=== PATIENT | male | born 1970 | race African-American/Black ===

== ENCOUNTER 2019-05-18 11:10 | Inpatient (IN) | payer OTHER ==
[2019-05-18 11:59] VITALS: BMI 25.9
--- NOTE | 2019-05-18 13:29 | HP ---
COWS - Scale Resting Pulse: 0= OR 80 or Below Sweatin= Chills/Flushing Restless Observation: 1= Difficult to Sit Still Pupil Size: 1= Pupils >than Normal Bone or Joint Aches: 2= Severe Diffuse Aches Runny Nose/ Eye Tearin= Runny Nose/Eyes GI Upset > 30mins: 2= Nausea/Diarrhea Tremor Observation: 2= Slight Tremor Visible Yawning Observation: 2= >3x During Session Anxiety or Irritability: 2=Irritable/Anxious Goose Flesh Skin: 0=Smooth Skin COWS Score: 15 CIWA Score Nausea/Vomitin Muscle Tremors: 2 Anxiety: 2 Agitation: 2 Paroxysmal Sweats: 1-Minimal Palms Moist Orientation: 0-Oriented Tacttile Disturbances: 1-Very Mild Itch/Numbness Auditory Disturbances: 1-Very Mild Visual Disturbances: 0-None Headache: 2-Mild CIWA-Ar Total Score: 13 - Admission Criteria OASAS Guidelines: Admission for Medically Managed Detox: Requires at least one of the followin. CIWA greater than 12 2. Seizures within the past 24 hours 3. Delirium tremens within the past 24 hours 4. Hallucinations within the past 24 hours 5. Acute intervention needed for co occurring medical disorder 6. Acute intervention needed for co occurring psychiatric disorder 7. Severe withdrawal that cannot be handled at a lower level of care (continued vomiting, continued diarrhea, abnormal vital signs) requiring intravenous medication and/or fluids 8. Admission ROS S - [facility] Chief Complaint: i need help to stop using heroin,alcohol and xanax Allergies/Adverse Reactions: Allergies Allergy/AdvReac Type Severity Reaction Status Date / Time No Known Drug Allergies Allergy Verified 05/18/19 11:52 lactose AdvReac Mild Verified 05/18/19 11:52 History of Present Illness: this 48 years old male with heroin dependence and alcohol dependence and xanax dependence,seeking detox,withdrawal symptom, multiple admissions in the past,last treatment [facility] 08/10/16 to 08/14/16 detox, rehab 08/14/16 to 09/04/16 nicotine dependence 1/2 pack/day,does not want nicotine replacement weight loss longest period of sobriety 5 and half year schizoaffective disorder no medication for 1 years arthritis of right knee ambulation with cane for 1 year plan out patient program after detox Exam Limitations: No Limitations - Ebola screening Have you traveled outside of the country in the last 21 days: No (NN) Have you had contact with anyone from an Ebola affected area: No Do you have a fever: No - Review of Systems Constitutional: Chills, Malaise, Night Sweats, Changes in sleep, Weakness, Weight Stable, Unintentional Wgt. Loss EENT: reports: Tearing, Nose Congestion Respiratory: reports: No Symptoms reported Cardiac: reports: No Symptoms Reported GI: reports: Nausea, Poor Appetite, Abdominal cramping : reports: No Symptoms Reported Musculoskeletal: reports: Back Pain, Muscle Pain, Neck Pain, Joint Stiffness ( pain in right knee arthritis ambulaion with cane) Integumentary: reports: Dryness Neuro: reports: Headache, Tremors Endocrine: reports: No Symptoms Reported Hematology: reports: No Symptoms Reported Psychiatric: reports: No Sypmtoms Reported, Judgement Intact, Mood/Affect Appropiate, Orientated x3, other (scizoaffetive disorder no meds for 1 year) Patient History - Patient Medical History Hx Anemia: No Hx Asthma: No Hx Chronic Obstructive Pulmonary Disease (COPD): No Hx Cancer: No Hx Cardiac Disorders: No Hx Congestive Heart Failure: No Hx Hypertension: No Hx Hypercholesterolemia: No Hx Pacemaker: No HX Cerebrovascular Accident: No Hx Seizures: No Hx Dementia: No Hx Diabetes: No Hx Gastrointestinal Disorders: No Hx Liver Disease: No Hx Genitourinary Disorders: No Hx Sexually Transmitted Disorders: Yes (GC X2) Hx Renal Disease (ESRD): No Hx Thyroid Disease: No Hx Human Immunodeficiency Virus (HIV): No (2017 last negative) Hx Hepatitis C: No Hx Depression: Yes Hx Suicide Attempt: No Hx Bipolar Disorder: No Hx Schizophrenia: Yes (schizoaffective disorder,non compliance,no sucidal,no homicidal) - Patient Surgical History Past Surgical History: No Hx Neurologic Surgery: No Hx Cataract Extraction: No Hx Cardiac Surgery: No Hx Lung Surgery: No Hx Breast Surgery: No Hx Breast Biopsy: No Hx Abdominal Surgery: No Hx Appendectomy: No Hx Cholecystectomy: No Hx Genitourinary Surgery: No Hx Section: No Hx Orthopedic Surgery: No Anesthesia Reaction: No - PPD History Previous Implant?: Yes Documented Results: Negative w/o proof Implanted On Prior R Admission?: Yes Date: 08/12/16 Results: 0 mm PPD to be Administered?: Yes - Smoking Cessation Smoking history: Current every day smoker Have you smoked in the past 12 months: Yes Aproximately how many cigarettes per day: 10 Cigars Per Day: 0 Hx Chewing Tobacco Use: No Initiated information on smoking cessation: Yes 'Breaking Loose' booklet given: 05/18/19 - Substance & Tx. History Hx Alcohol Use: Yes Hx Substance Use: Yes Substance Use Type: Alcohol, Heroin, Tranquilizers Hx Substance Use Treatment: Yes ([facility] 08/10/16 to 08/14/16 detox,rehab 08/14/16 to 09/04/16) - Substances abused Alcohol Substance route: Oral Frequency: Daily Amount used: 1 six pack , 2x week 1/2 pint vodka Age of first use: 15 Date of last use: 05/18/19 Heroin Substance route: Inhalation Frequency: Daily Amount used: 8 bags Age of first use: 23 Date of last use: 05/17/19 Alprazolam (Xanax) Substance route: Oral Frequency: 3-6 times per week Amount used: 2 (2mg sticks) Age of first use: 27 Date of last use: 05/16/19 Family Disease History - Family Disease History Family Disease History: Diabetes: Father (HTN), Mother (HTN), Heart Disease: Father, Mother, Other: Sister (alcohol and drug abused,HTN) Admission Physical Exam S - Vital Signs Vital Signs: Vital Signs - 24 hr 05/18/19 11:49 Temperature 98.4 F Pulse Rate 92 H Respiratory 18 Rate Blood Pressure 121/82 - Physical General Appearance: Yes: Moderate Distress, Tremorous, Irritable, Sweating, Anxious HEENTM: Yes: GERALDINE, Pharynx Normal, Nasal Congestion Respiratory: Yes: Within Normal Limits, Lungs Clear, Normal Breath Sounds Neck: Yes: Within Normal Limits, Supple, Trachea in good position Breast: Yes: Within Normal Limits Cardiology: Yes: Within Normal Limits, Regular Rhythm, Regular Rate, S1, S2 Abdominal: Yes: Within Normal Limits, Normal Bowel Sounds, Non Tender, Soft Genitourinary: Yes: Within Normal Limits Back: Yes: Muscle Spasm Musculoskeletal: Yes: Back pain, Muscle Pain Extremities: Yes: Tremors Neurological: Yes: Within Normal Limits, supervisor rides II-XII NML intact, Fully Oriented, Alert, Motor Strength 5/5 Integumentary: Yes: Dry Lymphatic: Yes: Within Normal Limits - Diagnostic (1) Opioid dependence with withdrawal Current Visit: Yes Status: Acute (2) Opioid dependence Current Visit: Yes Status: Acute (3) Alcohol dependence with uncomplicated withdrawal Current Visit: No Status: Acute (4) Seizure Current Visit: No Status: Active (5) Uncomplicated sedative, hypnotic or anxiolytic withdrawal Current Visit: Yes Status: Acute (6) Weight loss Current Visit: Yes Status: Acute (7) Nicotine dependence Current Visit: No Status: Acute (8) Schizoaffective disorder Current Visit: No Status: Acute (9) Drug withdrawal Current Visit: Yes Status: Acute (10) Drug withdrawal seizure Current Visit: Yes Status: Acute Cleared for Admission S - Detox or Rehab S Level of Care: Medically Managed Detox Regimen/Protocol: Methadone/Valium Breathalyzer - Breathalyzer Breathalyzer: 0 Urine Drug Screen - Test Device Lot number: [id number] Expiration date: 01/20/21 - Control Is test valid?: Yes - Results Drug screen NEGATIVE: No Urine drug screen results: MOP-Opiates, MTD-Methadone, BZO-Benzodiazepines Inpatient Rehab Admission - Rehab Decision to Admit Inpatient rehab admission?: No
[2019-05-18] MEDS ORDERED: cloNIDine HCL 0.1 MG TABLET PO PRN (13:44)
[2019-05-18] MEDS ORDERED: MAGNESIUM HYDROX 2400MG/30ML ORAL SUSPENSION 30 ML CUP PO PRN (13:54)
[2019-05-18] MEDS ORDERED: MAGNESIUM CITRATE 300 ML BOTTLE PO PRN (13:54)
[2019-05-18] MEDS ORDERED: BISMUTH SUBSALICYLATE 262 MG/15 ML BTL PO PRN (13:54)
[2019-05-18] MEDS ORDERED: MENTHOL/PHENOL 1 EACH UD MM PRN (13:54)
[2019-05-18] MEDS ORDERED: ACETAMINOPHEN 325 MG TABLET (FP) PO PRN ×2 (13:54)
[2019-05-18] MEDS ORDERED: MAG HYDROX/AL HYDROX/SIMETH 30 ML UNIT-DOSE CUP PO PRN (13:54)
[2019-05-18] MEDS ORDERED: METHADONE HCL 10 MG TABLET (FOR DETOX USE ONLY) PO ONE ×2 (14:20→23:00)
[2019-05-18 17:01] LABS: ALBUMIN 4.4 g/dl (3.4-5.0); BILIRUBIN,TOTAL 0.8 mg/dL (0.2-1); BLOOD UREA NITROGEN 18.4 mg/dL (7-18); CALCIUM 9.4 mg/dL (8.5-10.1); CREATININE 1.1 mg/dL (0.55-1.3); POTASSIUM 4.3 mmol/L (3.5-5.1); TOT PROT 8.4 g/dl (6.4-8.2)
[2019-05-18] MEDS: METHOCARBAMOL 500 MG TABLET PO PRN (17:19)
[2019-05-18] MEDS: diazePAM 5 MG TABLET PO PRN (17:19)
[2019-05-18 18:14] LABS: HEMATOCRIT 44.8 % (35.4-49); HEMOGLOBIN 14.5 GM/dL (11.7-16.9); MCH 31.2 pg (25.7-33.7); MCHC 32.4 g/dl (32.0-35.9); MEAN CELL VOLUME 96.4 fl (80-96); MEAN PLT VOLUME 8.9 fl (7.5-11.1); PLATELET COUNT 281 K/MM3 (134-434); RBC 4.64 M/mm3 (4.00-5.60); RDW 12.8 % (11.9-15.9); WHITE BLOOD COUNT 7.1 K/mm3 (4.0-10.0)
[2019-05-18 20:52] LABS: EPI CELLS 1.7 /HPF (0-5/HPF); HYALINE CASTS 6 /lpf (0-8); PH,URINE 6.5 (5.0-8.0); URINE APPEARANCE CLOUDY; URINE BACTERIA >9000 /hpf (NEGATIVE); URINE BILIRUBIN NEGATIVE (NEGATIVE); URINE COLOR YELLOW; URINE GLUCOSE (UA) NEGATIVE (NEGATIVE); URINE KETONE TRACE (NEGATIVE); URINE LEUK ESTERASE NEGATIVE (NEGATIVE); URINE NITRITE POSITIVE (NEGATIVE); URINE PROTEIN NEGATIVE (NEGATIVE); URINE RBC 1 /hpf (0-4); URINE UROBILINOGEN 0.2 mg/dL (0.2-1.0); URINE WBC 1 /hpf (0-5)
[2019-05-18] MEDS: THIAMINE HCL 100 MG TABLET (FP) PO SCH (22:38)
[2019-05-18] MEDS: diazePAM 5 MG TABLET PO SCH (22:38)
[2019-05-18] MEDS: MELATONIN 5 MG TABLETS PO PRN (22:38)
[2019-05-19] MEDS: diazePAM 5 MG TABLET PO SCH ×3 (06:00→22:14)
[2019-05-19] MEDS: METHOCARBAMOL 500 MG TABLET PO PRN ×2 (06:03→22:16)
[2019-05-19] MEDS ORDERED: METHADONE HCL 10 MG TABLET (FOR DETOX USE ONLY) PO ONE (10:00)
[2019-05-19] MEDS: PRENATAL VITAMINS W/ FOLIC ACID TABLET (FP) PO SCH (10:43)
[2019-05-19] MEDS: diazePAM 5 MG TABLET PO PRN ×2 (10:46→17:41)
--- NOTE | 2019-05-19 11:18 | PN ---
[facility] CIWA - CIWA Score Nausea/Vomitin-Mild Nausea/No Vomiting Muscle Tremors: 3 Anxiety: 2 Agitation: 3 Paroxysmal Sweats: 2 Orientation: 0-Oriented Tacttile Disturbances: 0-None Auditory Disturbances: 0-None Visual Disturbances: 0-None Headache: 0-None Present CIWA-Ar Total Score: 11 S COWS - Scale Resting Pulse: 0= CT 80 or Below Sweatin=Flushed/Facial Moisture Restless Observation: 1= Difficult to Sit Still Pupil Size: 0= Normal to Room Light Bone or Joint Aches: 2= Severe Diffuse Aches Runny Nose/ Eye Tearin= Nasal Congestion GI Upset > 30mins: 0= None Tremor Observation of Outstretched Hands: 2= Slight Tremor Visible Yawning Observation: 1= 1-2x During Session Anxiety or Irritability: 1=Feels Anxious/Irritable Goose Flesh Skin: 0=Smooth Skin COWS Score: 10 S Progress Note (SOAP) Subjective: agitation sweats shakes interrupted sleep/toss and turn insomnia Objective: 05/19/19 11:16 Vital Signs Temperature 98.4 F 05/19/19 09:25 Pulse Rate 79 05/19/19 09:25 Respiratory Rate 18 05/19/19 09:25 Blood Pressure 100/57 L 05/19/19 09:25 O2 Sat by Pulse Oximetry (%) Laboratory Tests 05/18/19 05/18/19 05/18/19 14:00 14:00 14:00 WBC 7.1 RBC 4.64 Hgb 14.5 Hct 44.8 D MCV 96.4 H MCH 31.2 MCHC 32.4 RDW 12.8 Plt Count 281 D MPV 8.9 Sodium 138 Potassium 4.3 Chloride 105 Carbon Dioxide 25 Anion Gap 8 BUN 18.4 H Creatinine 1.1 Est GFR (CKD-EPI)AfAm 91.52 Est GFR (CKD-EPI)NonAf 78.96 Random Glucose 78 Calcium 9.4 Total Bilirubin 0.8 AST 17 ALT 26 Alkaline Phosphatase 74 Total Protein 8.4 H Albumin 4.4 Urine Color Urine Appearance Urine pH Ur Specific [place] Urine Protein Urine Glucose (UA) Urine Ketones Urine Blood Urine Nitrite Urine Bilirubin Urine Urobilinogen Ur Leukocyte Esterase Urine WBC (Auto) Urine RBC (Auto) Urine Casts (Auto) U Pathogenic Cast Auto U Epithel Cells (Auto) Urine Bacteria (Auto) RPR Titer HIV 1&2 Antibody Screen Negative HIV P24 Antigen Negative 05/18/19 05/18/19 14:00 14:30 WBC RBC Hgb Hct MCV MCH MCHC RDW Plt Count MPV Sodium Potassium Chloride Carbon Dioxide Anion Gap BUN Creatinine Est GFR (CKD-EPI)AfAm Est GFR (CKD-EPI)NonAf Random Glucose Calcium Total Bilirubin AST ALT Alkaline Phosphatase Total Protein Albumin Urine Color Yellow Urine Appearance Cloudy Urine pH 6.5 D Ur Specific [place] 1.028 Urine Protein Negative Urine Glucose (UA) Negative Urine Ketones Trace H Urine Blood Negative Urine Nitrite Positive H Urine Bilirubin Negative Urine Urobilinogen 0.2 Ur Leukocyte Esterase Negative Urine WBC (Auto) 1 Urine RBC (Auto) 1 Urine Casts (Auto) 6 U Pathogenic Cast Auto No Result Required. U Epithel Cells (Auto) 1.7 Urine Bacteria (Auto) >9000 RPR Titer Nonreactive HIV 1&2 Antibody Screen HIV P24 Antigen labs noted u/a repeated; pt denies of any urinary discomfort aaox3 ambulating no acute distress Assessment: 05/19/19 11:17 withdrawal sx Plan: continue detox f/u repeat u/a ordered increase fluids psych ordered visine ordered
[2019-05-19] MEDS: TETRAHYDROZOLINE HCL EYE DROPS OS PRN ×2 (15:59→22:13)
[2019-05-19] MEDS: MELATONIN 5 MG TABLETS PO PRN (22:14)
[2019-05-19] MEDS: THIAMINE HCL 100 MG TABLET (FP) PO SCH (22:14)
[2019-05-20] MEDS: TETRAHYDROZOLINE HCL EYE DROPS OS PRN ×3 (06:00→22:27)
[2019-05-20] MEDS: diazePAM 5 MG TABLET PO PRN (06:19)
[2019-05-20] MEDS: METHOCARBAMOL 500 MG TABLET PO PRN (06:19)
--- NOTE | 2019-05-20 08:56 | CONSULT ---
[facility] Psychiatric Consult - Data Date of interview: 05/20/19 Admission source: Self-referred Identifying data: Mr Mtz is a 48 years old single Black male, father of 3 children, unemployed receiving food stamp, living with sister seeking detox treatment for alcohol,opioid and benzodiazepine Substance Abuse History: Reports history of alcohol, heroin and xanax use. Refer to recycling specialist's summary for further information Medical History: Significant for arthritis right knee, history of treament for gonorrhea twice. Smokes 10 cigarettes daily Psychiatric History: Reports being diagnosed with Schizoaffective Disorder 18 years ago and started on psychotropic medications. Reports history of 7-8 previous psychiatric hospitalizations at various facilities including [facility], [facility], [facility] in [place], [facility](defunct), [facility] in [facility]). Most recent admission was in 2013 to [facility] for auditory & visual hallucinations. Reports not currently receiving psychiatric outpatient services and medications. Told life underwriter that his most recent outpatient psychiatric treatment was at [facility] and he has been off medications for 8-9 months. Claims that he was Seroquel 200 mg/bid and Remeron 30 mg/hs. Denies previous suicidal attempt. At present, denies experencing psychotic, manic symptoms, S/H ideations. However, reports feeling mildly depressed and sleeping poorly. Physical/Sexual Abuse/Trauma History: Denies history of emotional, physical or sexual abuse as well as DV relationship Additional Comment: Reports history of 5-6 previous arrests including one felony conviction. Denies Mental Status Exam - Mental Status Exam Alert and Oriented to: Time, Place, Person Cognitive Function: Fair Patient Appearance: Well Groomed Mood: Depressed (mildly) Affect: Appropriate Patient Behavior: Cooperative Speech Pattern: Clear Voice Loudness: Normal Thought Process: Intact, Goal Oriented Thought Disorder: Not Present Hallucinations: Denies Suicidal Ideation: Denies Homicidal Ideation: Denies Insight/Judgement: Poor Sleep: Poorly Appetite: Good Muscle strength/Tone: Normal Gait/Station: Normal Psychiatric Findings - Problem List ([place] 1, 2,3) (1) Schizoaffective disorder Current Visit: No Status: Chronic (2) Substance induced mood disorder Current Visit: Yes Status: Acute (3) Substance-induced sleep disorder Current Visit: Yes Status: Acute (4) Alcohol dependence with uncomplicated withdrawal Current Visit: No Status: Acute (5) Opioid dependence with withdrawal Current Visit: Yes Status: Acute (6) Uncomplicated sedative, hypnotic or anxiolytic withdrawal Current Visit: Yes Status: Acute (7) Nicotine dependence Current Visit: No Status: Chronic (8) Arthritis of right knee Current Visit: Yes Status: Chronic - Initial Treatment Plan Initial Treatment Plan: 1) Start Seroquel 100 mg po HS. 2) Continue inpatient detoxification
[2019-05-20] MEDS ORDERED: METHADONE HCL 10 MG TABLET (FOR DETOX USE ONLY) PO ONE (10:00)
[2019-05-20] MEDS: PRENATAL VITAMINS W/ FOLIC ACID TABLET (FP) PO SCH (10:21)
[2019-05-20] MEDS: diazePAM 5 MG TABLET PO SCH ×2 (10:22→22:26)
[2019-05-20] MEDS: IBUPROFEN 400 MG TABLET (FP) PO PRN (10:24)
--- NOTE | 2019-05-20 11:52 | PN ---
[facility] CIWA - CIWA Score Nausea/Vomitin-No Nausea/No Vomiting Muscle Tremors: 3 Anxiety: 2 Agitation: 2 Paroxysmal Sweats: 2 Orientation: 0-Oriented Tacttile Disturbances: 0-None Auditory Disturbances: 0-None Visual Disturbances: 0-None Headache: 0-None Present CIWA-Ar Total Score: 9 BHS COWS - Scale Resting Pulse: 1= NM 81-100 Sweatin= Chills/Flushing Restless Observation: 1= Difficult to Sit Still Pupil Size: 0= Normal to Room Light Bone or Joint Aches: 1= Mild Discomfort Runny Nose/ Eye Tearin= None GI Upset > 30mins: 0= None Tremor Observation of Outstretched Hands: 1= Tremor [place], Not Seen Yawning Observation: 1= 1-2x During Session Anxiety or Irritability: 1=Feels Anxious/Irritable Goose Flesh Skin: 0=Smooth Skin COWS Score: 7 S Progress Note (SOAP) Subjective: sweats interrupted sleep body aches Objective: 05/20/19 11:55 Vital Signs Temperature 97.7 F 05/20/19 09:24 Pulse Rate 88 05/20/19 09:24 Respiratory Rate 18 05/20/19 09:24 Blood Pressure 121/60 05/20/19 09:24 O2 Sat by Pulse Oximetry (%) Laboratory Tests 05/18/19 05/18/19 05/18/19 14:00 14:00 14:00 WBC 7.1 RBC 4.64 Hgb 14.5 Hct 44.8 D MCV 96.4 H MCH 31.2 MCHC 32.4 RDW 12.8 Plt Count 281 D MPV 8.9 Sodium 138 Potassium 4.3 Chloride 105 Carbon Dioxide 25 Anion Gap 8 BUN 18.4 H Creatinine 1.1 Est GFR (CKD-EPI)AfAm 91.52 Est GFR (CKD-EPI)NonAf 78.96 Random Glucose 78 Calcium 9.4 Total Bilirubin 0.8 AST 17 ALT 26 Alkaline Phosphatase 74 Total Protein 8.4 H Albumin 4.4 Urine Color Urine Appearance Urine pH Ur Specific [place] Urine Protein Urine Glucose (UA) Urine Ketones Urine Blood Urine Nitrite Urine Bilirubin Urine Urobilinogen Ur Leukocyte Esterase Urine WBC (Auto) Urine RBC (Auto) Urine Casts (Auto) U Pathogenic Cast Auto U Epithel Cells (Auto) Urine Bacteria (Auto) RPR Titer HIV 1&2 Antibody Screen Negative HIV P24 Antigen Negative 05/18/19 05/18/19 14:00 14:30 WBC RBC Hgb Hct MCV MCH MCHC RDW Plt Count MPV Sodium Potassium Chloride Carbon Dioxide Anion Gap BUN Creatinine Est GFR (CKD-EPI)AfAm Est GFR (CKD-EPI)NonAf Random Glucose Calcium Total Bilirubin AST ALT Alkaline Phosphatase Total Protein Albumin Urine Color Yellow Urine Appearance Cloudy Urine pH 6.5 D Ur Specific [place] 1.028 Urine Protein Negative Urine Glucose (UA) Negative Urine Ketones Trace H Urine Blood Negative Urine Nitrite Positive H Urine Bilirubin Negative Urine Urobilinogen 0.2 Ur Leukocyte Esterase Negative Urine WBC (Auto) 1 Urine RBC (Auto) 1 Urine Casts (Auto) 6 U Pathogenic Cast Auto No Result Required. U Epithel Cells (Auto) 1.7 Urine Bacteria (Auto) >9000 RPR Titer Nonreactive HIV 1&2 Antibody Screen HIV P24 Antigen labs noted pending repeated u/a aaox3 ambulating no acute distress Assessment: 05/20/19 11:55 withdrawal sx Plan: continue detox increase fluids pending u/a
[2019-05-20] MEDS: THIAMINE HCL 100 MG TABLET (FP) PO SCH (22:26)
[2019-05-20] MEDS: QUEtiapine FUMARATE 100 MG TABLET (FP) PO SCH (22:26)
[2019-05-21] MEDS: IBUPROFEN 400 MG TABLET (FP) PO PRN (05:15)
[2019-05-21] MEDS ORDERED: diazePAM 5 MG TABLET PO SCH (06:00)
[2019-05-21] MEDS ORDERED: METHADONE HCL 5 MG TABLET (FOR DETOX USE ONLY) ONE (09:15)
[2019-05-21] MEDS ORDERED: METHADONE HCL 10 MG TABLET (FOR DETOX USE ONLY) ONE (09:15)
[2019-05-21] MEDS ORDERED: METHADONE HCL 10 MG TABLET (FOR DETOX USE ONLY) PO ONE (10:00)
[2019-05-21] MEDS ORDERED: METHADONE (DETOX) 10 MG, METHADONE (DETOX) 5 MG PO ONE (10:00)
[2019-05-21] MEDS: PRENATAL VITAMINS W/ FOLIC ACID TABLET (FP) PO SCH (10:19)
[2019-05-21] MEDS: diazePAM 5 MG TABLET PO PRN (10:23)
[2019-05-21] MEDS: TETRAHYDROZOLINE HCL EYE DROPS OS PRN (10:25)
[2019-05-21] MEDS: METHOCARBAMOL 500 MG TABLET PO PRN (10:25)
--- NOTE | 2019-05-21 10:51 | PN ---
[facility] CIWA - CIWA Score Nausea/Vomitin-No Nausea/No Vomiting Muscle Tremors: 2 Anxiety: 1-Mildly Anxious Agitation: 0-Normal Activity Paroxysmal Sweats: 3 Orientation: 0-Oriented Tacttile Disturbances: 0-None Auditory Disturbances: 0-None Visual Disturbances: 0-None Headache: 1-Very Mild CIWA-Ar Total Score: 7 S COWS - Scale Resting Pulse: 1= MD 81-100 Sweatin= Beads of Sweat on Face Restless Observation: 1= Difficult to Sit Still Pupil Size: 0= Normal to Room Light Bone or Joint Aches: 0= None Runny Nose/ Eye Tearin= None GI Upset > 30mins: 0= None Tremor Observation of Outstretched Hands: 1= Tremor [place], Not Seen Yawning Observation: 1= 1-2x During Session Anxiety or Irritability: 0= None Goose Flesh Skin: 0=Smooth Skin COWS Score: 7 S Progress Note (SOAP) Subjective: c/o anxiety, headache, and sweats. Objective: 05/21/19 10:50 Vital Signs 05/21/19 05/21/19 05/21/19 04:03 06:00 06:51 Temperature 98.2 F Pulse Rate 98 H Respiratory 18 18 18 Rate Blood Pressure 146/85 05/21/19 10:45 Temperature 98.1 F Pulse Rate 90 Respiratory 18 Rate Blood Pressure 121/69 Lab Results WBC 7.1 K/mm3 (4.0-10.0) 05/18/19 14:00 RBC 4.64 M/mm3 (4.00-5.60) 05/18/19 14:00 Hgb 14.5 GM/dL (11.7-16.9) 05/18/19 14:00 Hct 44.8 % (35.4-49) D 05/18/19 14:00 MCV 96.4 fl (80-96) H 05/18/19 14:00 MCHC 32.4 g/dl (32.0-35.9) 05/18/19 14:00 RDW 12.8 % (11.9-15.9) 05/18/19 14:00 Plt Count 281 K/MM3 (134-434) D 05/18/19 14:00 Sodium 138 mmol/L (136-145) 05/18/19 14:00 Potassium 4.3 mmol/L (3.5-5.1) 05/18/19 14:00 Chloride 105 mmol/L (98-107) 05/18/19 14:00 Carbon Dioxide 25 mmol/L (21-32) 05/18/19 14:00 Anion Gap 8 MMOL/L (8-16) 05/18/19 14:00 BUN 18.4 mg/dL (7-18) H 05/18/19 14:00 Creatinine 1.1 mg/dL (0.55-1.3) 05/18/19 14:00 Random Glucose 78 mg/dL (74-106) 05/18/19 14:00 Calcium 9.4 mg/dL (8.5-10.1) 05/18/19 14:00 Labs noted. Assessment: 05/21/19 10:50 AOX3, in no acute distress Full ROM, ambulating in the unit. mild withdrawal symptoms. Plan: continue detox.
[2019-05-21] MEDS: hydrOXYzine PAMOATE 25 MG CAPSULE (FP) PO PRN (18:59)
[2019-05-21] MEDS: QUEtiapine FUMARATE 100 MG TABLET (FP) PO SCH (22:14)
[2019-05-21] MEDS: THIAMINE HCL 100 MG TABLET (FP) PO SCH (22:14)
[2019-05-22] MEDS ORDERED: METHADONE HCL 5 MG TABLET (FOR DETOX USE ONLY) PO ONE (06:00)
[2019-05-22] MEDS ORDERED: METHADONE HCL 10 MG TABLET (FOR DETOX USE ONLY) PO ONE (10:00)
[2019-05-22] MEDS: PRENATAL VITAMINS W/ FOLIC ACID TABLET (FP) PO SCH (10:19)
[2019-05-22] MEDS: hydrOXYzine PAMOATE 25 MG CAPSULE (FP) PO PRN ×2 (10:20→17:41)
[2019-05-22] MEDS: METHOCARBAMOL 500 MG TABLET PO PRN ×2 (10:20→17:40)
--- NOTE | 2019-05-22 16:25 | PN ---
[facility] CIWA - CIWA Score Nausea/Vomitin-No Nausea/No Vomiting Muscle Tremors: None Anxiety: 2 Agitation: 2 Paroxysmal Sweats: 2 Orientation: 0-Oriented Tacttile Disturbances: 0-None Auditory Disturbances: 0-None Visual Disturbances: 0-None Headache: 0-None Present CIWA-Ar Total Score: 6 S COWS - Scale Resting Pulse: 2= OR 101-120 Sweatin= Chills/Flushing Restless Observation: 0= Sits Still Pupil Size: 0= Normal to Room Light Bone or Joint Aches: 0= None Runny Nose/ Eye Tearin= None GI Upset > 30mins: 0= None Tremor Observation of Outstretched Hands: 0= None Yawning Observation: 0= None Anxiety or Irritability: 2=Irritable/Anxious Goose Flesh Skin: 0=Smooth Skin COWS Score: 5 S Progress Note (SOAP) Subjective: Body ache, interrupted sleep Objective: 05/22/19 16:21 Last Vital Signs Temp Pulse Resp BP Pulse Ox 97.7 F 113 H 18 111/75 05/22/19 14:30 05/22/19 14:30 05/22/19 14:30 05/22/19 14:30 Pulse 113 (patient appears anxious) Laboratory Tests 05/18/19 05/18/19 05/18/19 14:00 14:00 14:00 WBC 7.1 RBC 4.64 Hgb 14.5 Hct 44.8 D MCV 96.4 H MCH 31.2 MCHC 32.4 RDW 12.8 Plt Count 281 D MPV 8.9 Sodium 138 Potassium 4.3 Chloride 105 Carbon Dioxide 25 Anion Gap 8 BUN 18.4 H Creatinine 1.1 Est GFR (CKD-EPI)AfAm 91.52 Est GFR (CKD-EPI)NonAf 78.96 Random Glucose 78 Calcium 9.4 Total Bilirubin 0.8 AST 17 ALT 26 Alkaline Phosphatase 74 Total Protein 8.4 H Albumin 4.4 Urine Color Urine Appearance Urine pH Ur Specific [place] Urine Protein Urine Glucose (UA) Urine Ketones Urine Blood Urine Nitrite Urine Bilirubin Urine Urobilinogen Ur Leukocyte Esterase Urine WBC (Auto) Urine RBC (Auto) Urine Casts (Auto) U Pathogenic Cast Auto U Epithel Cells (Auto) Urine Bacteria (Auto) RPR Titer HIV 1&2 Antibody Screen Negative HIV P24 Antigen Negative 05/18/19 05/18/19 14:00 14:30 WBC RBC Hgb Hct MCV MCH MCHC RDW Plt Count MPV Sodium Potassium Chloride Carbon Dioxide Anion Gap BUN Creatinine Est GFR (CKD-EPI)AfAm Est GFR (CKD-EPI)NonAf Random Glucose Calcium Total Bilirubin AST ALT Alkaline Phosphatase Total Protein Albumin Urine Color Yellow Urine Appearance Cloudy Urine pH 6.5 D Ur Specific [place] 1.028 Urine Protein Negative Urine Glucose (UA) Negative Urine Ketones Trace H Urine Blood Negative Urine Nitrite Positive H Urine Bilirubin Negative Urine Urobilinogen 0.2 Ur Leukocyte Esterase Negative Urine WBC (Auto) 1 Urine RBC (Auto) 1 Urine Casts (Auto) 6 U Pathogenic Cast Auto No Result Required. U Epithel Cells (Auto) 1.7 Urine Bacteria (Auto) >9000 RPR Titer Nonreactive HIV 1&2 Antibody Screen HIV P24 Antigen Labs reviewed: UA shows UTI Assessment: 05/22/19 16:23 Withdrawal symptoms Noted with UTI Plan: Continue detox Encouraged PO water intake Acute UTI: start ciprofloxacin 500mg PO bid x 10 days, follow up with PCP in 2 weeks for further management
[2019-05-22] MEDS ORDERED: CIPROFLOXACIN 500 MG TABLET (RESTRICTED TO ID) PO SCH (22:00)
[2019-05-22] MEDS: QUEtiapine FUMARATE 100 MG TABLET (FP) PO SCH (22:13)
[2019-05-22] MEDS: THIAMINE HCL 100 MG TABLET (FP) PO SCH (22:13)
[2019-05-23] MEDS: METHOCARBAMOL 500 MG TABLET PO PRN (05:16)
[2019-05-23] MEDS ORDERED: METHADONE HCL 5 MG TABLET (FOR DETOX USE ONLY) PO ONE (06:00)
[2019-05-23] MEDS: TETRAHYDROZOLINE HCL EYE DROPS OS PRN (06:29)
--- NOTE | 2019-05-23 09:14 | DS ---
[facility] Detox Discharge Summary Admission Date: 05/18/19 Discharge Date: 05/23/19 - History Present History: Alcohol Dependence, Opioid Dependence, Sedative Dependence - Physical Exam Results Vital Signs: Vital Signs Temperature 99.3 F 05/23/19 06:00 Pulse Rate 102 H 05/23/19 06:00 Respiratory Rate 18 05/23/19 06:00 Blood Pressure 125/91 05/23/19 06:00 O2 Sat by Pulse Oximetry (%) - Treatment Hospital Course: Detox Protocol Followed, Detoxed Safely, Responded well, Discharged Condition Good, Rehab Referral Accepted - Medication Discharge Medications: Ambulatory Orders NK [No Known Home Medication] 05/18/19 - Diagnosis (1) Opioid dependence with withdrawal Current Visit: Yes Status: Chronic (2) Substance induced mood disorder Current Visit: Yes Status: Acute (3) Substance-induced sleep disorder Current Visit: Yes Status: Acute (4) Uncomplicated sedative, hypnotic or anxiolytic withdrawal Current Visit: Yes Status: Chronic (5) Arthritis of right knee Current Visit: Yes Status: Chronic (6) Seizure Current Visit: No Status: Active (7) Alcohol dependence with uncomplicated withdrawal Current Visit: Yes Status: Chronic (8) Cocaine dependence Current Visit: Yes Status: Chronic (9) Methadone maintenance therapy patient Current Visit: Yes Status: Chronic (10) Sedative, hypnotic or anxiolytic dependence with withdrawal, uncomplicated Current Visit: Yes Status: Chronic (11) Nicotine dependence Current Visit: Yes Status: Chronic Qualifiers: Nicotine product type: cigarettes Substance use status: uncomplicated Qualified Code(s): F17.210 - Nicotine dependence, cigarettes, uncomplicated (12) Schizoaffective disorder Current Visit: No Status: Chronic - AMA Did Patient Leave Against Medical Advice: No [facility]
[2019-05-23 09:25] VITALS: BP 154/90; PULSE 100; TEMP 97
== END 2019-05-23 09:40 | disposition home or self-care (01) | DRG 773 ==
LOC: YASAS 11:10 → Y6N 14:04
PROVIDERS: ADMIT Surgery; ATTEND Surgery
PROC: HZ2ZZZZ Detoxification Services for Substance Abuse Treatment (ICD-10-PCS; principal; 2019-05-18)
DX: F11.23 Opioid dependence with withdrawal (principal); F10.230 Alcohol dependence with withdrawal, uncomplicated; F13.230 Sedative, hypnotic or anxiolytic dependence with withdrawal, uncomplicated; F14.20 Cocaine dependence, uncomplicated; F17.210 Nicotine dependence, cigarettes, uncomplicated; F25.9 Schizoaffective disorder, unspecified; F19.24 Other psychoactive substance dependence with psychoactive substance-induced mood disorder; F19.282 Other psychoactive substance dependence with psychoactive substance-induced sleep disorder; M17.11 Unilateral primary osteoarthritis, right knee; N39.0 Urinary tract infection, site not specified; R63.4 Abnormal weight loss; Z87.438 Personal history of other diseases of male genital organs; Z86.69 Personal history of other diseases of the nervous system and sense organs
CPT/HCPCS: 36415; 80053; 81003; 85027; 86593; 87389; J0735

== ENCOUNTER 2019-06-21 11:48 | Inpatient (IN) | payer OTHER ==
[2019-06-21 13:02] VITALS: BMI 26.3
--- NOTE | 2019-06-21 14:05 | HP ---
CIWA Score Nausea/Vomitin-Mild Nausea/No Vomiting Muscle Tremors: 3 Anxiety: 4-Mod. Anxious/Guarded Agitation: 4-Moderately Restless Paroxysmal Sweats: No Perspiration Orientation: 0-Oriented Tacttile Disturbances: 0-None Auditory Disturbances: 0-None Visual Disturbances: 0-None Headache: 0-None Present CIWA-Ar Total Score: 12 - Admission Criteria OASAS Guidelines: Admission for Medically Managed Detox: Requires at least one of the followin. CIWA greater than 12 2. Seizures within the past 24 hours 3. Delirium tremens within the past 24 hours 4. Hallucinations within the past 24 hours 5. Acute intervention needed for co occurring medical disorder 6. Acute intervention needed for co occurring psychiatric disorder 7. Severe withdrawal that cannot be handled at a lower level of care (continued vomiting, continued diarrhea, abnormal vital signs) requiring intravenous medication and/or fluids 8. Admission ROS S - [facility] Allergies/Adverse Reactions: Allergies Allergy/AdvReac Type Severity Reaction Status Date / Time No Known Drug Allergies Allergy Verified 06/21/19 12:57 lactose AdvReac Mild Verified 06/21/19 12:57 History of Present Illness: Search Terms: marlon johnson, 1970 Search Date: 06/21/2019 01:59:23 PM This report was requested by: Blessing Samuel | Reference #: [id number] There are no results for the search terms that you entered. pt here requesting detox from etoh use , reports 1 x 6-pk beer of 16-oz cans , reports relapse 2 days after d/c from this facility 05/23/19 , first age of use 17 , + w/d seizure from xanax use 2014 , reports blackouts in the past , reports tremors if not drinking , reports he starts drinking around 10 am , current symptoms as above , latest use this morning . xanax - 2 sticks x 3 x/ week , latest use 4 days ago , first age of use 17 cocaine : 3 bags via inhalation , denies ivdu , first age of use 27 on MMTP 60 mg q d started last Thursday06/13/19 , latest heroin 3 days ago, reports using 2 -3 x/week approximately 4 bags via inhalation , denies ivdu ( " I tried it one time " ) , claims latest taken today clinic @ [facility] [place] , first age of use for heroin 23 . (START) tobacco : 1/2 ppd since age 16 , first tried at age 12 . pmhx :SAD previously on Seroquel and Remeron , which he states he stopped taking about 1 year ago , OA R knee ambulating w/ cane states planning TKR saw orthopedics @ [facility] PSHX : denies SHX : lives w/ sister , unemployed , finances habit through " doing different hustles in the street " , denies current legal issues . Exam Limitations: No Limitations - Ebola screening Have you traveled outside of the country in the last 21 days: No Have you had contact with anyone from an Ebola affected area: No - Review of Systems Constitutional: Loss of Appetite EENT: reports: Other (reading glasses) Respiratory: reports: No Symptoms reported Cardiac: reports: No Symptoms Reported GI: reports: See HPI : reports: No Symptoms Reported Musculoskeletal: reports: Joint Pain (right knee), Joint Stiffness (right knee) Integumentary: reports: Other (on back - from scratching) Neuro: reports: Unsteady Gait (using cane for ambulation) Endocrine: reports: No Symptoms Reported Psychiatric: reports: Orientated x3, Agitated, Anxious Patient History - Patient Medical History Hx Anemia: No Hx Asthma: No Hx Chronic Obstructive Pulmonary Disease (COPD): No Hx Cancer: No Hx Cardiac Disorders: No Hx Congestive Heart Failure: No Hx Hypertension: No Hx Hypercholesterolemia: No Hx Pacemaker: No HX Cerebrovascular Accident: No Hx Seizures: No Hx Dementia: No Hx Diabetes: No Hx Gastrointestinal Disorders: No Hx Liver Disease: No Hx Genitourinary Disorders: No Hx Sexually Transmitted Disorders: Yes (GC X2) Hx Renal Disease (ESRD): No Hx Thyroid Disease: No Hx Human Immunodeficiency Virus (HIV): No (2017 last negative) Hx Hepatitis C: No Hx Depression: Yes Hx Suicide Attempt: No Hx Bipolar Disorder: No Hx Schizophrenia: Yes (schizoaffective disorder,non compliance,no sucidal,no homicidal) - Patient Surgical History Past Surgical History: No Hx Neurologic Surgery: No Hx Cataract Extraction: No Hx Cardiac Surgery: No Hx Lung Surgery: No Hx Breast Surgery: No Hx Breast Biopsy: No Hx Abdominal Surgery: No Hx Appendectomy: No Hx Cholecystectomy: No Hx Genitourinary Surgery: No Hx Section: No Hx Orthopedic Surgery: No Anesthesia Reaction: No - PPD History Date: 05/20/19 Results: 0 mm - Smoking Cessation Smoking history: Current every day smoker Have you smoked in the past 12 months: Yes Aproximately how many cigarettes per day: 10 Cigars Per Day: 0 Hx Chewing Tobacco Use: No Initiated information on smoking cessation: No - Substances abused Alcohol Substance route: Oral Frequency: Daily Amount used: 1 six pack , 2x week 1/2 pint vodka Age of first use: 15 Date of last use: 06/21/19 Heroin Substance route: Inhalation Frequency: 1-2 times per week Amount used: 2 bags Age of first use: 23 Date of last use: 06/19/19 Alprazolam (Xanax) Substance route: Oral Frequency: 3-6 times per week Amount used: 2 (2mg sticks) Age of first use: 27 Date of last use: 06/18/19 Family Disease History - Family Disease History Family Disease History: Diabetes: Father (HTN), Mother (HTN), Heart Disease: Father, Mother, Other: Sister (alcohol and drug abused,HTN) Admission Physical Exam [facility] - Vital Signs Vital Signs: Vital Signs - 24 hr 06/21/19 12:57 Temperature 97 F L Pulse Rate 97 H Respiratory 18 Rate Blood Pressure 116/77 - Physical General Appearance: Yes: Mild Distress, Moderate Distress, Tremorous, Irritable , Anxious HEENTM: Yes: EOMI, Hearing grossly Normal, Normocephalic, Normal Voice, Other ( poor dentition , many missing teeth conjunctival erythema) Respiratory: Yes: Chest Non-Tender, Lungs Clear, Normal Breath Sounds, No Respiratory Distress, No Accessory Muscle Use Neck: Yes: No masses,lesions,Nodules, Other Cardiology: Yes: Regular Rhythm, Regular Rate, S1, S2, Tachycardia Abdominal: Yes: Normal Bowel Sounds, Non Tender, Soft Musculoskeletal: Yes: Joint Stiffness (right knee), Other (using cane for ambulation) Extremities: Yes: Non-Tender, Tremors Neurological: Yes: Fully Oriented, Alert Integumentary: Yes: Warm, Other (excoriation on right lower back and right anterolateral leg .) - Diagnostic (1) Opioid dependence on agonist therapy Current Visit: Yes Status: Acute (2) Alcohol dependence with uncomplicated withdrawal Current Visit: Yes Status: Chronic (3) Sedative, hypnotic or anxiolytic dependence with withdrawal, uncomplicated Current Visit: Yes Status: Chronic (4) Cocaine dependence Current Visit: Yes Status: Chronic (5) Nicotine dependence Current Visit: Yes Status: Chronic Qualifiers: Nicotine product type: cigarettes Substance use status: uncomplicated Qualified Code(s): F17.210 - Nicotine dependence, cigarettes, uncomplicated Breathalyzer - Breathalyzer Breathalyzer: 0.008 Urine Drug Screen - Test Device Lot number: [id number] Expiration date: 03/22/21 - Control Is test valid?: Yes - Results Drug screen NEGATIVE: No Urine drug screen results: LETICIA-Cocaine, MTD-Methadone, BZO-Benzodiazepines Inpatient Rehab Admission - Rehab Decision to Admit Inpatient rehab admission?: No
[2019-06-21] MEDS ORDERED: IBUPROFEN 400 MG TABLET (FP) PO PRN (14:18)
[2019-06-21] MEDS ORDERED: MAGNESIUM HYDROX 2400MG/30ML ORAL SUSPENSION 30 ML CUP PO PRN (14:18)
[2019-06-21] MEDS ORDERED: hydrOXYzine HCL 25 MG TABLET (FP) PO PRN (14:18)
[2019-06-21] MEDS ORDERED: ACETAMINOPHEN 325 MG TABLET (FP) PO PRN ×2 (14:18)
[2019-06-21] MEDS ORDERED: MAGNESIUM CITRATE 300 ML BOTTLE PO PRN (14:18)
[2019-06-21] MEDS ORDERED: BISMUTH SUBSALICYLATE 262 MG/15 ML BTL PO PRN (14:18)
[2019-06-21] MEDS ORDERED: NICOTINE POLACRILEX 2 MG GUM BUC PRN (14:18)
[2019-06-21] MEDS ORDERED: MAG HYDROX/AL HYDROX/SIMETH 30 ML UNIT-DOSE CUP PO PRN (14:18)
[2019-06-21] MEDS ORDERED: MENTHOL/PHENOL 1 EACH UD MM PRN (14:18)
[2019-06-21] MEDS ORDERED: chlordiazePOXIDE HCL 10 MG CAPSULE PO PRN (14:20)
[2019-06-21] MEDS ORDERED: chlordiazePOXIDE HCL 25 MG CAPSULE PO ONE (14:45)
[2019-06-21] MEDS: THIAMINE HCL 100 MG TABLET (FP) PO SCH (22:21)
[2019-06-21] MEDS: MELATONIN 5 MG TABLETS PO PRN (22:22)
[2019-06-21] MEDS: chlordiazePOXIDE HCL 25 MG CAPSULE PO SCH (22:22)
[2019-06-21] MEDS: BACITRACIN/POLYMYXIN B SULFATE 15 GM TUBE TP SCH (22:22)
[2019-06-22] MEDS: chlordiazePOXIDE HCL 25 MG CAPSULE PO SCH ×3 (05:37→22:15)
[2019-06-22] MEDS ORDERED: METHADONE HCL 10 MG TABLET PO ONE (07:53)
[2019-06-22] MEDS ORDERED: METHADONE 40 MG, METHADONE 20 MG PO ONE (08:15)
[2019-06-22] MEDS ORDERED: METHADONE HCL 10 MG TABLET ONE (09:30)
[2019-06-22] MEDS ORDERED: METHADONE HCL 40 MG DISPERSABLE TABLET ONE (09:30)
[2019-06-22] MEDS: BACITRACIN/POLYMYXIN B SULFATE 15 GM TUBE TP SCH ×2 (10:20→22:17)
[2019-06-22] MEDS: PRENATAL VITAMINS W/ FOLIC ACID TABLET (FP) PO SCH (10:20)
--- NOTE | 2019-06-22 12:21 | CONSULT ---
[facility] Psychiatric Consult - Data Date of interview: 06/22/19 Admission source: [facility] Identifying data: Patient is a 48 year old single male, father of three, unemployed, resides with sister, and is supported by food stamps. This is one of multiple admissions for patient. Patient admitted to for cocaine and benzodiazepine dependence. Substance Abuse History: Smoking Cessation. Smoking history: Current every day smoker. Have you smoked in the past 12 months: Yes. Aproximately how many cigarettes per day: 10. Cigars Per Day: 0. Hx Chewing Tobacco Use: No. Initiated information on smoking cessation: No. - Substances abused. Alcohol. Substance route: Oral. Frequency: Daily. Amount used: 1 six pack , 2x week 1/2 pint vodka. Age of first use: 15. Date of last use: 06/21/19. Heroin. Substance route: Inhalation. Frequency: 1-2 times per week. Amount used: 2 bags. Age of first use: 23. Date of last use: 06/19/19. Alprazolam (Xanax). Substance route: Oral. Frequency: 3-6 times per week. Amount used: 2 (2mg sticks). Age of first use: 27. Date of last use: 06/18/19 Medical History: Significant for arthritis right knee, history of treament for gonorrhea twice. Psychiatric History: Mr. Mtz reports h/o multiple psychiatric hospitalizations most recently seven years ago at [facility] after exhibiting a psychotic epioside of auditory and visual hallucinations. Diagnosis of Schizoaffective disorder. Patient reports additional hospitalizations at [facility] , [facility], [facility] and [facility] in [facility]. Mr. Mtz last received outpatient psychiatric care over one year ago. He reports past history of accepting Seroquel 200mg BID and Remeron 15mg HS but has been off his medications for approximately one year. At present, patient denies psychotic symptoms, suicidal/ homicidial ideation. Physical/Sexual Abuse/Trauma History: denies. Mental Status Exam - Mental Status Exam Alert and Oriented to: Time, Place, Person Cognitive Function: Good Patient Appearance: Well Groomed Mood: Sad Affect: Mood Congruent Patient Behavior: Cooperative Speech Pattern: Clear Voice Loudness: Normal Thought Process: Goal Oriented Thought Disorder: Not Present Hallucinations: Denies Suicidal Ideation: Denies Homicidal Ideation: Denies Insight/Judgement: Poor Sleep: Poorly Appetite: Fair Muscle strength/Tone: Normal Gait/Station: Normal Psychiatric Findings - Problem List ([place] 1, 2,3) (1) Opioid dependence on agonist therapy Current Visit: Yes Status: Acute (2) Alcohol dependence with uncomplicated withdrawal Current Visit: Yes Status: Acute (3) Cocaine dependence Current Visit: Yes Status: Chronic (4) Nicotine dependence Current Visit: Yes Status: Chronic Qualifiers: Nicotine product type: cigarettes Substance use status: uncomplicated Qualified Code(s): F17.210 - Nicotine dependence, cigarettes, uncomplicated (5) Sedative, hypnotic or anxiolytic dependence with withdrawal, uncomplicated Current Visit: Yes Status: Chronic (6) Substance-induced sleep disorder Current Visit: Yes Status: Acute (7) Schizoaffective disorder Current Visit: Yes Status: Chronic - Initial Treatment Plan Initial Treatment Plan: Psychoeducation provided. Detoxification in progress. Will order Seroquel 100mg HS. Benefits and side effects discussed. Verbal consent given.
--- NOTE | 2019-06-22 12:38 | PN ---
[facility] CIWA - CIWA Score Nausea/Vomitin-Mild Nausea/No Vomiting Muscle Tremors: 2 Anxiety: 2 Agitation: 1-Slight > Activity Paroxysmal Sweats: 1-Minimal Palms Moist Orientation: 0-Oriented Tacttile Disturbances: 0-None Auditory Disturbances: 0-None Visual Disturbances: 0-None Headache: 1-Very Mild CIWA-Ar Total Score: 8 [facility] Progress Note (SOAP) Subjective: pt here for alcohol detox, on MAT Methadone. Pt has no complaints. O: Vital Signs - 24 hr 06/21/19 06/21/19 06/21/19 15:40 17:01 20:31 Temperature 98.2 F 98.2 F 98.1 F Pulse Rate 84 94 H 82 Respiratory 183 H 18 18 Rate Blood Pressure 141/72 128/83 131/83 06/22/19 06/22/19 06/22/19 03:30 07:30 12:59 Temperature 97.2 F L 96.8 F L Pulse Rate 76 85 Respiratory 18 18 18 Rate Blood Pressure 104/66 110/78 labs done 05/18/19: essential WNL a/p: continue alcohol detox, MAT methadone
[2019-06-22] MEDS ORDERED: QUEtiapine FUMARATE 100 MG TABLET (FP) PO SCH (22:00)
[2019-06-22] MEDS: THIAMINE HCL 100 MG TABLET (FP) PO SCH (22:15)
[2019-06-22] MEDS: MELATONIN 5 MG TABLETS PO PRN (22:16)
[2019-06-23] MEDS ORDERED: chlordiazePOXIDE 5 MG CAPSULE PO SCH (05:00)
[2019-06-23] MEDS ORDERED: METHADONE HCL 40 MG DISPERSABLE TABLET ONE (05:02)
[2019-06-23] MEDS ORDERED: METHADONE HCL 10 MG TABLET ONE (05:02)
[2019-06-23] MEDS ORDERED: METHADONE HCL 10 MG TABLET PO SCH (06:00)
[2019-06-23] MEDS ORDERED: METHADONE 40 MG, METHADONE 20 MG PO SCH (06:00)
[2019-06-23 09:30] VITALS: BP 126/75; PULSE 106; TEMP 98.3
[2019-06-23] MEDS: PRENATAL VITAMINS W/ FOLIC ACID TABLET (FP) PO SCH (10:39)
[2019-06-23] MEDS: BACITRACIN/POLYMYXIN B SULFATE 15 GM TUBE TP SCH (10:39)
--- NOTE | 2019-06-23 15:55 | PN ---
[facility] CIWA - CIWA Score Nausea/Vomitin-No Nausea/No Vomiting Muscle Tremors: 3 Anxiety: 3 Agitation: 5 Paroxysmal Sweats: No Perspiration Orientation: 2-Disoriented Date<2 days Tacttile Disturbances: 1-Very Mild Itch/Numbness Auditory Disturbances: 0-None Visual Disturbances: 2-Mild Sensitivity Headache: 0-None Present CIWA-Ar Total Score: 16 [facility] Progress Note (SOAP) Subjective: Anxious, Fatigue, Tremor, Restless. Objective: PATIENT A & O X 2 (UNCERTAIN ABOUT CURRENT DAY / DATE). PATIENT OBSERVED AMBULATING ON UNIT UNASSISTED. IN NO ACUTE DISTRESS. 06/23/19 15:54 Vital Signs Temperature 98.3 F 06/23/19 09:29 Pulse Rate 106 H 06/23/19 09:29 Respiratory Rate 18 06/23/19 09:29 Blood Pressure 126/75 06/23/19 09:29 O2 Sat by Pulse Oximetry (%) LAB RESULTS FROM ADMISSION ON 05/18/2019 NOTED AND REVIEWED Assessment: 06/23/19 15:55 WITHDRAWAL SYMPTOMS. Plan: CONTINUE DETOX. NOTE: WHILE ASSESSING PATIENT DURING AM ROUNDS ASSESSMENT THIS AM, PATIENT DISPLAYED RESTLESS AND ERRATIC BEHAVIOR. PATIENT'S ROOMMATE ALSO DISPLAYED SIMILAR BEHAVIOR. DUE TO CONCERN ABOUT POSSIBLE CONTRABAND ON UNIT, REPEAT UDS ORDERED. SECURITY CALLED TO SEARCH PATIENT'S ROOM - NO CONTRABAND FOUND IN ROOM. PATIENT HAD CONSULTATION WITH PSYCHIATRIC NURSE PRACTITIONER YESTERDAY (SEE [facility] PSYCH. CONSULT NOTE FOR 06/22/2019). REPEAT UDS DONE. RESULT: POSITIVE FOR MTD (METHADONE), LETICIA (COCAINE), AND BZO ( BENZODIAZEPINES) (SAME RESULTS FOR UDS DONE AT TIME OF ADMISSION FOR DETOX). WILL CONTINUE TO MONITOR PATIENT'S BEHAVIOR.
--- NOTE | 2019-06-23 16:06 | DS ---
[facility] Detox Discharge Summary Admission Date: 06/21/19 Discharge Date: 06/23/19 - History Present History: Alcohol Dependence, Cocaine Dependence, Opioid Dependence, Sedative Dependence, MMTP Additional Comments: DESPITE EFFORTS BY ANTI TANK MISSILEMAN AND BY NURSING STAFF TO ADDRESS PATIENT'S MEDICAL NEEDS / CONCERNS, PATIENT DOES NOT WISH TO REMAIN TO COMPLETE DETOX REGIMEN. RISKS OF LEAVING DETOX UNIT AGAINST MEDICAL ADVICE AND PRIOR TO COMPLETION OF DETOX REGIMEN EXPLAINED TO PATIENT. PATIENT ADVISED TO GO IMMEDIATELY TO NEAREST ER SHOULD ANY INTOLERABLE WITHDRAWAL / DETOX SYMPTOMS DEVELOP AT ANY TIME. PATIENT ALSO ADVISED TO FOLLOW-UP WITH ADMIN PROG COORD FOR GENERAL MEDICAL ASSESSMENT WHEN POSSIBLE. PATIENT VERBALIZED UNDERSTANDING OF ALL INFORMATION / RECOMMENDATIONS PRESENTED TO HIM PRIOR TO DEPARTURE FROM DETOX UNIT. PATIENT LEFT DETOX UNIT IN STABLE MEDICAL CONDITION. Pertinent Past History: Depression, Schizoaffective Disorder, Osteoarthritis Of Right Knee, S.A.D., Nicotine Dependence, M.M.T.P. - Physical Exam Results Vital Signs: Vital Signs Temperature 98.3 F 06/23/19 09:29 Pulse Rate 106 H 06/23/19 09:29 Respiratory Rate 18 06/23/19 09:29 Blood Pressure 126/75 06/23/19 09:29 O2 Sat by Pulse Oximetry (%) Pertinent Admission Physical Exam Findings: WITHDRAWAL SYMPTOMS. LABS FROM ADMISSION ON 05/18/2019 NOTED. - Medication Discharge Medications: Ambulatory Orders NK [No Known Home Medication] 05/18/19 - Diagnosis (1) Alcohol dependence with uncomplicated withdrawal Status: Acute (2) Opioid dependence on agonist therapy Status: Chronic (3) Cocaine dependence Status: Chronic (4) Nicotine dependence Status: Chronic Qualifiers: Nicotine product type: cigarettes Substance use status: uncomplicated Qualified Code(s): F17.210 - Nicotine dependence, cigarettes, uncomplicated (5) Sedative, hypnotic or anxiolytic dependence with withdrawal, uncomplicated Status: Acute (6) Substance-induced sleep disorder Status: Acute (7) Schizoaffective disorder Status: Chronic Qualifiers: Schizoaffective disorder type: unspecified Qualified Code(s): F25.9 - Schizoaffective disorder, unspecified - AMA Did Patient Leave Against Medical Advice: Yes (PATIENT DID NOT WISH TO REMAIN TO COMPLETE DETOX REGIMEN.)
[2019-06-24] MEDS ORDERED: chlordiazePOXIDE HCL 10 MG CAPSULE PO PRN
[2019-06-24] MEDS ORDERED: chlordiazePOXIDE HCL 10 MG CAPSULE PO SCH (05:00)
[2019-06-25] MEDS ORDERED: chlordiazePOXIDE HCL 10 MG CAPSULE PO ONE (05:00)
== END 2019-06-23 12:36 | disposition home or self-care (01) | DRG 773 ==
LOC: YASAS 11:48 → Y6N 14:39
PROVIDERS: ADMIT Surgery; ATTEND Surgery
PROC: HZ2ZZZZ Detoxification Services for Substance Abuse Treatment (ICD-10-PCS; principal; 2019-06-21)
DX: F10.230 Alcohol dependence with withdrawal, uncomplicated (principal); F13.230 Sedative, hypnotic or anxiolytic dependence with withdrawal, uncomplicated; F14.20 Cocaine dependence, uncomplicated; F11.20 Opioid dependence, uncomplicated; F17.210 Nicotine dependence, cigarettes, uncomplicated; F19.282 Other psychoactive substance dependence with psychoactive substance-induced sleep disorder; F25.9 Schizoaffective disorder, unspecified; Z86.19 Personal history of other infectious and parasitic diseases

== ENCOUNTER 2021-07-25 11:27 | Inpatient (IN) | payer OTHER ==
[2021-07-25 12:47] VITALS: BMI 34.2
[2021-07-25] MEDS ORDERED: MAGNESIUM CITRATE 300 ML BOTTLE PO PRN (13:12)
[2021-07-25] MEDS ORDERED: MAGNESIUM HYDROX 2400MG/30ML ORAL SUSPENSION 30 ML CUP PO PRN (13:12)
[2021-07-25] MEDS ORDERED: MENTHOL/PHENOL 1 EACH UD MM PRN (13:12)
[2021-07-25] MEDS ORDERED: ACETAMINOPHEN 325 MG TABLET (FP) PO PRN ×2 (13:12)
[2021-07-25] MEDS ORDERED: IBUPROFEN 400 MG TABLET (FP) PO PRN (13:12)
[2021-07-25] MEDS ORDERED: NICOTINE 10 MG CARTRIDGE (INHALER) IH PRN (13:12)
[2021-07-25] MEDS ORDERED: ONDANSETRON *ODT* 4 MG TABLET SL PRN (13:12)
[2021-07-25] MEDS ORDERED: BISMUTH SUBSALICYLATE 262 MG/15 ML BTL PO PRN (13:12)
[2021-07-25] MEDS ORDERED: MAG HYDROX/AL HYDROX/SIMETH 30 ML UNIT-DOSE CUP PO PRN (13:12)
[2021-07-25] MEDS: diazePAM 5 MG TABLET PO PRN (15:18)
[2021-07-25] MEDS: PRENATAL VITAMINS W/ FOLIC ACID TABLET (FP) PO SCH (15:19)
[2021-07-25] MEDS: hydrOXYzine PAMOATE 25 MG CAPSULE (FP) PO SCH ×3 (15:19→22:01)
[2021-07-25] MEDS: NICOTINE 14 MG/24 HOURS TOPICAL PATCH TD SCH (15:19)
[2021-07-25] MEDS: diazePAM 5 MG TABLET PO SCH ×2 (17:32→22:01)
[2021-07-25 17:45] LABS: HIV INTERPRETATION NEGATIVE (NEGATIVE)
[2021-07-25] MEDS: THIAMINE HCL 100 MG TABLET (FP) PO SCH (22:01)
[2021-07-25] MEDS: MELATONIN 5 MG TABLETS PO SCH (22:01)
[2021-07-25] MEDS: QUEtiapine FUMARATE 100 MG TABLET (FP) PO SCH (22:01)
[2021-07-26] MEDS: diazePAM 5 MG TABLET PO SCH ×4 (06:08→22:30)
[2021-07-26] MEDS: hydrOXYzine PAMOATE 25 MG CAPSULE (FP) PO SCH (06:09)
[2021-07-26] MEDS ORDERED: methaDONE HCL 10 MG TABLET PO ONE (07:40)
[2021-07-26] MEDS ORDERED: hydrOXYzine PAMOATE 25 MG CAPSULE (FP) PO PRN (07:40)
[2021-07-26] MEDS ORDERED: methaDONE HCL 10 MG TABLET ONE (09:49)
[2021-07-26] MEDS ORDERED: methaDONE HCL 40 MG DISPERSABLE TABLET ONE (09:49)
[2021-07-26] MEDS: METHOCARBAMOL 500 MG TABLET PO PRN ×2 (10:15→22:31)
[2021-07-26] MEDS: NICOTINE 14 MG/24 HOURS TOPICAL PATCH TD SCH (10:15)
[2021-07-26] MEDS: PRENATAL VITAMINS W/ FOLIC ACID TABLET (FP) PO SCH (10:15)
[2021-07-26 10:25] LABS: HEMATOCRIT 31.6 % (35.4-49); HEMOGLOBIN 10.7 GM/dL (11.7-16.9); MCH 31.3 pg (25.7-33.7); MCHC 33.7 g/dl (32.0-35.9); MEAN CELL VOLUME 92.8 fl (80-96); MEAN PLT VOLUME 8.9 fl (7.5-11.1); PLATELET COUNT 189 10^3/uL (134-434); RBC 3.41 M/mm3 (4.00-5.60); WHITE BLOOD COUNT 3.8 K/mm3 (4.0-10.0)
[2021-07-26 10:31] LABS: ALBUMIN 3.3 g/dl (3.4-5.0)
[2021-07-26 10:32] LABS: BLOOD UREA NITROGEN 19.8 mg/dL (7-18); CALCIUM 8.4 mg/dL (8.5-10.1)
[2021-07-26 10:36] LABS: BILIRUBIN,TOTAL 0.2 mg/dL (0.2-1)
[2021-07-26 10:38] LABS: TOT PROT 6.9 g/dl (6.4-8.2)
[2021-07-26] MEDS: MELATONIN 5 MG TABLETS PO SCH (22:30)
[2021-07-26] MEDS: THIAMINE HCL 100 MG TABLET (FP) PO SCH (22:30)
[2021-07-26] MEDS: QUEtiapine FUMARATE 100 MG TABLET (FP) PO SCH (22:30)
[2021-07-27] MEDS ORDERED: methaDONE HCL 10 MG TABLET ONE (04:28)
[2021-07-27] MEDS ORDERED: methaDONE HCL 40 MG DISPERSABLE TABLET ONE (04:28)
[2021-07-27] MEDS: diazePAM 5 MG TABLET PO SCH ×3 (05:59→22:18)
[2021-07-27] MEDS ORDERED: methaDONE HCL 40 MG DISPERSABLE TABLET PO SCH (06:00)
[2021-07-27] MEDS: PRENATAL VITAMINS W/ FOLIC ACID TABLET (FP) PO SCH (10:22)
[2021-07-27] MEDS: NICOTINE 14 MG/24 HOURS TOPICAL PATCH TD SCH (10:22)
[2021-07-27] MEDS: diazePAM 5 MG TABLET PO PRN (10:24)
[2021-07-27] MEDS: THIAMINE HCL 100 MG TABLET (FP) PO SCH (22:19)
[2021-07-27] MEDS: QUEtiapine FUMARATE 100 MG TABLET (FP) PO SCH (22:19)
[2021-07-27] MEDS: MELATONIN 5 MG TABLETS PO SCH (22:20)
[2021-07-27] MEDS: METHOCARBAMOL 500 MG TABLET PO PRN (22:20)
[2021-07-28] MEDS ORDERED: methaDONE HCL 10 MG TABLET ONE (03:03)
[2021-07-28] MEDS ORDERED: methaDONE HCL 40 MG DISPERSABLE TABLET ONE (03:04)
[2021-07-28] MEDS: diazePAM 5 MG TABLET PO SCH ×2 (06:12→17:44)
[2021-07-28] MEDS: diazePAM 5 MG TABLET PO PRN (10:31)
[2021-07-28] MEDS: PRENATAL VITAMINS W/ FOLIC ACID TABLET (FP) PO SCH (10:31)
[2021-07-28] MEDS: METHOCARBAMOL 500 MG TABLET PO PRN (10:31)
[2021-07-28] MEDS: NICOTINE 14 MG/24 HOURS TOPICAL PATCH TD SCH (12:21)
[2021-07-28] MEDS: QUEtiapine FUMARATE 100 MG TABLET (FP) PO SCH (22:16)
[2021-07-28] MEDS: THIAMINE HCL 100 MG TABLET (FP) PO SCH (22:16)
[2021-07-28] MEDS: MELATONIN 5 MG TABLETS PO SCH (22:16)
[2021-07-29] MEDS ORDERED: methaDONE HCL 10 MG TABLET ONE (04:06)
[2021-07-29] MEDS ORDERED: methaDONE HCL 40 MG DISPERSABLE TABLET ONE (04:07)
[2021-07-29] MEDS ORDERED: diazePAM 5 MG TABLET PO ONE (06:00)
[2021-07-29] MEDS: PRENATAL VITAMINS W/ FOLIC ACID TABLET (FP) PO SCH (10:23)
[2021-07-29] MEDS: NICOTINE 14 MG/24 HOURS TOPICAL PATCH TD SCH (10:23)
[2021-07-29 12:58] VITALS: BP 113/72; PULSE 76; TEMP 97.1
== END 2021-07-29 13:35 | disposition home or self-care (01) | DRG 773 ==
LOC: YASAS 11:27 → Y6N 13:34 → Y3N 17:38
PROVIDERS: ADMIT Allergy & Immunology; ATTEND Allergy & Immunology
PROC: HZ2ZZZZ Detoxification Services for Substance Abuse Treatment (ICD-10-PCS; principal; 2021-07-25)
DX: F10.230 Alcohol dependence with withdrawal, uncomplicated (principal); F13.230 Sedative, hypnotic or anxiolytic dependence with withdrawal, uncomplicated; F11.20 Opioid dependence, uncomplicated; F14.20 Cocaine dependence, uncomplicated; F12.20 Cannabis dependence, uncomplicated; F17.210 Nicotine dependence, cigarettes, uncomplicated; F19.282 Other psychoactive substance dependence with psychoactive substance-induced sleep disorder; F25.9 Schizoaffective disorder, unspecified; M17.11 Unilateral primary osteoarthritis, right knee; M54.5 Low back pain; G89.29 Other chronic pain; R56.9 Unspecified convulsions; Z99.89 Dependence on other enabling machines and devices; Z91.011 Allergy to milk products
CPT/HCPCS: 36415; 80053; 85027; 86780; 87389; C9803; Q0162; U0003; U0005

== ENCOUNTER 2021-10-20 11:29 | Inpatient (IN) | payer OTHER ==
[2021-10-20 12:03] VITALS: BMI 34.5
[2021-10-20] MEDS ORDERED: MAG HYDROX/AL HYDROX/SIMETH 30 ML UNIT-DOSE CUP PO PRN (12:24)
[2021-10-20] MEDS ORDERED: NICOTINE 10 MG CARTRIDGE (INHALER) IH PRN (12:24)
[2021-10-20] MEDS ORDERED: MAGNESIUM HYDROX 2400MG/30ML ORAL SUSPENSION 30 ML CUP PO PRN (12:24)
[2021-10-20] MEDS ORDERED: BISMUTH SUBSALICYLATE 524 MG/30 ML PO PRN (12:24)
[2021-10-20] MEDS ORDERED: ONDANSETRON *ODT* 4 MG TABLET SL PRN (12:24)
[2021-10-20] MEDS ORDERED: MENTHOL/PHENOL 1 EACH UD MM PRN (12:24)
[2021-10-20] MEDS ORDERED: ACETAMINOPHEN 325 MG TABLET (FP) PO PRN ×2 (12:24)
[2021-10-20] MEDS ORDERED: MAGNESIUM CITRATE 300 ML BOTTLE PO PRN (12:24)
[2021-10-20] MEDS: hydrOXYzine PAMOATE 25 MG CAPSULE (FP) PO SCH ×3 (14:24→22:18)
[2021-10-20] MEDS: diazePAM 5 MG TABLET PO PRN (14:24)
[2021-10-20] MEDS: IBUPROFEN 400 MG TABLET (FP) PO PRN (14:27)
[2021-10-20] MEDS: METHOCARBAMOL 500 MG TABLET PO PRN (14:27)
[2021-10-20] MEDS: diazePAM 5 MG TABLET PO SCH ×2 (17:22→22:18)
[2021-10-20] MEDS: QUEtiapine FUMARATE 100 MG TABLET (FP) PO SCH (22:17)
[2021-10-20] MEDS: THIAMINE HCL 100 MG TABLET (FP) PO SCH (22:18)
[2021-10-20] MEDS: MELATONIN 5 MG TABLETS PO SCH (22:18)
[2021-10-21] MEDS: diazePAM 5 MG TABLET PO SCH ×4 (05:46→22:20)
[2021-10-21] MEDS: hydrOXYzine PAMOATE 25 MG CAPSULE (FP) PO SCH ×5 (05:46→22:20)
[2021-10-21] MEDS: METHOCARBAMOL 500 MG TABLET PO PRN ×2 (05:47→18:06)
[2021-10-21] MEDS ORDERED: methaDONE HCL 10 MG TABLET PO ONE (10:00)
[2021-10-21] MEDS ORDERED: methaDONE HCL 10 MG TABLET ONE (10:25)
[2021-10-21] MEDS ORDERED: methaDONE HCL 40 MG DISPERSABLE TABLET ONE (10:26)
[2021-10-21] MEDS: PRENATAL VITAMINS W/ FOLIC ACID TABLET (FP) PO SCH (10:32)
[2021-10-21 10:56] LABS: HEMATOCRIT 31.4 % (35.4-49); HEMOGLOBIN 10.6 GM/dL (11.7-16.9); MCH 30.2 pg (25.7-33.7); MCHC 33.9 g/dl (32.0-35.9); MEAN CELL VOLUME 89.3 fl (80-96); MEAN PLT VOLUME 7.9 fl (7.5-11.1); PLATELET COUNT 218 10^3/uL (134-434); RBC 3.52 M/mm3 (4.00-5.60); RDW 13.3 % (11.9-15.9); WHITE BLOOD COUNT 4.4 K/mm3 (4.0-10.0)
[2021-10-21 11:41] LABS: ALBUMIN 3.2 g/dl (3.4-5.0); BLOOD UREA NITROGEN 14.4 mg/dL (7-18); CALCIUM 8.4 mg/dL (8.5-10.1)
[2021-10-21 11:44] LABS: CREATININE 0.9 mg/dL (0.55-1.3)
[2021-10-21 11:46] LABS: BILIRUBIN,TOTAL 0.2 mg/dL (0.2-1); TOT PROT 6.9 g/dl (6.4-8.2)
[2021-10-21] MEDS: THIAMINE HCL 100 MG TABLET (FP) PO SCH (22:20)
[2021-10-21] MEDS: QUEtiapine FUMARATE 100 MG TABLET (FP) PO SCH (22:20)
[2021-10-21] MEDS: MELATONIN 5 MG TABLETS PO SCH (22:21)
[2021-10-22] MEDS ORDERED: methaDONE HCL 10 MG TABLET ONE (04:08)
[2021-10-22] MEDS ORDERED: methaDONE HCL 40 MG DISPERSABLE TABLET ONE (04:09)
[2021-10-22] MEDS: hydrOXYzine PAMOATE 25 MG CAPSULE (FP) PO SCH ×2 (05:34→10:08)
[2021-10-22] MEDS ORDERED: diazePAM 5 MG TABLET PO SCH (06:00)
[2021-10-22] MEDS ORDERED: methaDONE HCL 10 MG TABLET PO SCH (06:00)
[2021-10-22] MEDS: IBUPROFEN 400 MG TABLET (FP) PO PRN (07:49)
[2021-10-22 09:15] VITALS: BP 111/69; PULSE 81; TEMP 97.7
[2021-10-22] MEDS: PRENATAL VITAMINS W/ FOLIC ACID TABLET (FP) PO SCH (10:07)
[2021-10-22] MEDS: diazePAM 5 MG TABLET PO PRN (10:07)
[2021-10-22] MEDS: METHOCARBAMOL 500 MG TABLET PO PRN (10:07)
[2021-10-23] MEDS ORDERED: diazePAM 5 MG TABLET PO SCH (06:00)
[2021-10-24] MEDS ORDERED: diazePAM 5 MG TABLET PO ONE (06:00)
== END 2021-10-22 13:01 | disposition left against medical advice (07) | DRG 770 ==
LOC: YASAS 11:29 → Y6N 12:46
PROVIDERS: ADMIT Allergy & Immunology; ATTEND Allergy & Immunology
PROC: HZ2ZZZZ Detoxification Services for Substance Abuse Treatment (ICD-10-PCS; principal; 2021-10-20)
DX: F10.230 Alcohol dependence with withdrawal, uncomplicated (principal); F11.20 Opioid dependence, uncomplicated; F13.20 Sedative, hypnotic or anxiolytic dependence, uncomplicated; F14.20 Cocaine dependence, uncomplicated; F17.213 Nicotine dependence, cigarettes, with withdrawal; F25.9 Schizoaffective disorder, unspecified; F19.282 Other psychoactive substance dependence with psychoactive substance-induced sleep disorder; F19.280 Other psychoactive substance dependence with psychoactive substance-induced anxiety disorder; M17.0 Bilateral primary osteoarthritis of knee; R00.0 Tachycardia, unspecified; E66.9 Obesity, unspecified; Z68.34 Body mass index [BMI] 34.0-34.9, adult; R26.2 Difficulty in walking, not elsewhere classified; Z99.89 Dependence on other enabling machines and devices; Z91.011 Allergy to milk products; Z86.69 Personal history of other diseases of the nervous system and sense organs; Z87.438 Personal history of other diseases of male genital organs; Z56.0 Unemployment, unspecified
CPT/HCPCS: 36415; 80053; 85027; 86780; 93005; 93010; C9803; U0003; U0005

== ENCOUNTER 2022-02-26 13:33 | Inpatient (IN) | payer OTHER ==
[2022-02-26] MEDS ORDERED: MENTHOL/PHENOL 1 EACH UD MM PRN (14:57)
[2022-02-26] MEDS ORDERED: MAGNESIUM CITRATE 300 ML BOTTLE PO PRN (14:57)
[2022-02-26] MEDS ORDERED: NICOTINE 10 MG CARTRIDGE (INHALER) IH PRN (14:57)
[2022-02-26] MEDS ORDERED: LOPERAMIDE HCL 2 MG CAPSULE PO PRN (14:57)
[2022-02-26] MEDS ORDERED: DICYCLOMINE HCL 10 MG CAPSULE PO PRN (14:57)
[2022-02-26] MEDS ORDERED: MAGNESIUM HYDROX 2400MG/30ML ORAL SUSPENSION 30 ML CUP PO PRN (14:57)
[2022-02-26] MEDS ORDERED: BISMUTH SUBSALICYLATE 262 MG/15 ML BTL PO PRN (14:57)
[2022-02-26] MEDS ORDERED: ONDANSETRON *ODT* 4 MG TABLET SL PRN (14:57)
[2022-02-26] MEDS ORDERED: MAG HYDROX/AL HYDROX/SIMETH 30 ML UNIT-DOSE CUP PO PRN (14:57)
[2022-02-26] MEDS ORDERED: ACETAMINOPHEN 325 MG TABLET (FP) PO PRN ×2 (14:57)
[2022-02-26 15:18] VITALS: BMI 33.0
[2022-02-26] MEDS: diazePAM 5 MG TABLET PO PRN (19:10)
[2022-02-26] MEDS: diazePAM 5 MG TABLET PO SCH ×2 (19:12→22:21)
[2022-02-26] MEDS: hydrOXYzine PAMOATE 25 MG CAPSULE (FP) PO SCH ×2 (19:12→22:22)
[2022-02-26] MEDS: IBUPROFEN 400 MG TABLET (FP) PO PRN (19:48)
[2022-02-26] MEDS: MELATONIN 5 MG TABLETS PO SCH (22:21)
[2022-02-26] MEDS: THIAMINE HCL 100 MG TABLET (FP) PO SCH (22:21)
[2022-02-27] MEDS: diazePAM 5 MG TABLET PO SCH ×4 (05:55→22:11)
[2022-02-27] MEDS: hydrOXYzine PAMOATE 25 MG CAPSULE (FP) PO SCH ×5 (05:55→22:11)
[2022-02-27] MEDS: METHOCARBAMOL 500 MG TABLET PO PRN ×2 (05:56→18:30)
[2022-02-27] MEDS ORDERED: methaDONE HCL 10 MG TABLET ONE (09:09)
[2022-02-27] MEDS ORDERED: methaDONE HCL 40 MG DISPERSABLE TABLET ONE (09:10)
[2022-02-27] MEDS ORDERED: methaDONE HCL 10 MG TABLET PO ONE (10:00)
[2022-02-27] MEDS: PRENATAL VITAMINS W/ FOLIC ACID TABLET (FP) PO SCH (10:11)
[2022-02-27 12:15] LABS: ALBUMIN 3.3 g/dl (3.4-5.0); BLOOD UREA NITROGEN 16.5 mg/dL (7-18); CALCIUM 8.8 mg/dL (8.5-10.1)
[2022-02-27 12:17] LABS: CREATININE 0.9 mg/dL (0.55-1.3)
[2022-02-27 12:18] LABS: HEMATOCRIT 33.1 % (35.4-49); HEMOGLOBIN 10.6 GM/dL (11.7-16.9); MCH 28.1 pg (25.7-33.7); MEAN CELL VOLUME 87.9 fl (80-96); MEAN PLT VOLUME 7.9 fl (7.5-11.1); PLATELET COUNT 272 10^3/uL (134-434); RBC 3.77 M/mm3 (4.00-5.60); RDW 15.8 % (11.9-15.9); WHITE BLOOD COUNT 5.1 K/mm3 (4.0-10.0)
[2022-02-27 12:19] LABS: BILIRUBIN,TOTAL 0.2 mg/dL (0.2-1); TOT PROT 7.8 g/dl (6.4-8.2)
[2022-02-27 14:08] LABS: SARS-CoV-2 NAA Not Detected (Not Detected)
[2022-02-27] MEDS: IBUPROFEN 400 MG TABLET (FP) PO PRN (14:27)
[2022-02-27] MEDS: QUEtiapine FUMARATE 100 MG TABLET (FP) PO SCH (22:11)
[2022-02-27] MEDS: THIAMINE HCL 100 MG TABLET (FP) PO SCH (22:11)
[2022-02-27] MEDS: MELATONIN 5 MG TABLETS PO SCH (22:12)
[2022-02-28] MEDS ORDERED: methaDONE HCL 10 MG TABLET ONE (04:10)
[2022-02-28] MEDS ORDERED: methaDONE HCL 40 MG DISPERSABLE TABLET ONE (04:10)
[2022-02-28] MEDS: diazePAM 5 MG TABLET PO SCH ×3 (05:06→22:04)
[2022-02-28] MEDS ORDERED: methaDONE HCL 10 MG TABLET PO SCH (06:00)
[2022-02-28] MEDS: hydrOXYzine PAMOATE 25 MG CAPSULE (FP) PO SCH ×5 (06:26→22:04)
[2022-02-28] MEDS: PRENATAL VITAMINS W/ FOLIC ACID TABLET (FP) PO SCH (10:15)
[2022-02-28] MEDS: diazePAM 5 MG TABLET PO PRN (10:17)
[2022-02-28] MEDS: METHOCARBAMOL 500 MG TABLET PO PRN ×2 (10:19→17:34)
[2022-02-28] MEDS: THIAMINE HCL 100 MG TABLET (FP) PO SCH (22:04)
[2022-02-28] MEDS: QUEtiapine FUMARATE 100 MG TABLET (FP) PO SCH (22:04)
[2022-02-28] MEDS: MELATONIN 5 MG TABLETS PO SCH (22:05)
[2022-03-01] MEDS ORDERED: methaDONE HCL 40 MG DISPERSABLE TABLET ONE (04:10)
[2022-03-01] MEDS ORDERED: methaDONE HCL 10 MG TABLET ONE (04:10)
[2022-03-01] MEDS: diazePAM 5 MG TABLET PO SCH ×2 (05:13→18:50)
[2022-03-01] MEDS: hydrOXYzine PAMOATE 25 MG CAPSULE (FP) PO SCH ×5 (05:13→22:26)
[2022-03-01] MEDS: PRENATAL VITAMINS W/ FOLIC ACID TABLET (FP) PO SCH (10:11)
[2022-03-01] MEDS: METHOCARBAMOL 500 MG TABLET PO PRN ×2 (10:11→22:27)
[2022-03-01] MEDS: QUEtiapine FUMARATE 100 MG TABLET (FP) PO SCH (22:26)
[2022-03-01] MEDS: THIAMINE HCL 100 MG TABLET (FP) PO SCH (22:26)
[2022-03-01] MEDS: MELATONIN 5 MG TABLETS PO SCH (22:27)
[2022-03-02] MEDS ORDERED: methaDONE HCL 10 MG TABLET ONE (04:32)
[2022-03-02] MEDS ORDERED: methaDONE HCL 40 MG DISPERSABLE TABLET ONE (04:33)
[2022-03-02] MEDS: hydrOXYzine PAMOATE 25 MG CAPSULE (FP) PO SCH ×3 (05:11→14:44)
[2022-03-02] MEDS ORDERED: diazePAM 5 MG TABLET PO ONE (06:00)
[2022-03-02] MEDS: PRENATAL VITAMINS W/ FOLIC ACID TABLET (FP) PO SCH (10:17)
[2022-03-02 12:58] VITALS: BP 115/61; PULSE 94; TEMP 97.8
[2022-03-02] MEDS: METHOCARBAMOL 500 MG TABLET PO PRN (14:59)
[2022-03-02] MEDS: IBUPROFEN 400 MG TABLET (FP) PO PRN (15:00)
[2022-03-02 16:07] LABS: SARS-CoV-2 NAA Not Detected (Not Detected)
== END 2022-03-02 17:25 | disposition other institution (70) | DRG 773 ==
LOC: YASAS 13:33 → Y6N 18:26
PROVIDERS: ADMIT Allergy & Immunology; ATTEND Allergy & Immunology
PROC: HZ2ZZZZ Detoxification Services for Substance Abuse Treatment (ICD-10-PCS; principal; 2022-02-26)
DX: F10.230 Alcohol dependence with withdrawal, uncomplicated (principal); F11.23 Opioid dependence with withdrawal; F13.230 Sedative, hypnotic or anxiolytic dependence with withdrawal, uncomplicated; F17.213 Nicotine dependence, cigarettes, with withdrawal; F19.282 Other psychoactive substance dependence with psychoactive substance-induced sleep disorder; F19.24 Other psychoactive substance dependence with psychoactive substance-induced mood disorder; F25.9 Schizoaffective disorder, unspecified; M17.0 Bilateral primary osteoarthritis of knee; Z86.69 Personal history of other diseases of the nervous system and sense organs
CPT/HCPCS: 36415; 80053; 83036; 85027; 86780; C9803-CS; U0003; U0005

== ENCOUNTER 2022-03-02 17:31 | Inpatient (IN) | payer OTHER ==
[2022-03-02] MEDS ORDERED: NICOTINE 10 MG CARTRIDGE (INHALER) IH PRN (18:49)
[2022-03-02] MEDS ORDERED: P-EPHED 60MG/TRIPROLIDI 2.5MG TABLET PO PRN (18:49)
[2022-03-02] MEDS ORDERED: MAG HYDROX/AL HYDROX/SIMETH 30 ML UNIT-DOSE CUP PO PRN (18:49)
[2022-03-02] MEDS ORDERED: guaiFENesin 200 MG/10 ML 10 ML UNIT-DOSE CUPS PO PRN (18:49)
[2022-03-02] MEDS ORDERED: LOPERAMIDE HCL 2 MG CAPSULE PO PRN (18:49)
[2022-03-02] MEDS ORDERED: ACETAMINOPHEN 325 MG TABLET (FP) PO PRN (18:49)
[2022-03-02] MEDS ORDERED: BENZOCAINE/MENTHOL (CHLORASEPTIC ) LOZENGE MM PRN (18:49)
[2022-03-02] MEDS ORDERED: MAGNESIUM HYDROX 2400MG/30ML ORAL SUSPENSION 30 ML CUP PO PRN (18:49)
[2022-03-02] MEDS ORDERED: MAGNESIUM CITRATE 300 ML BOTTLE PO PRN (18:49)
[2022-03-02] MEDS: THIAMINE HCL 100 MG TABLET (FP) PO SCH (21:30)
[2022-03-02] MEDS: hydrOXYzine PAMOATE 25 MG CAPSULE (FP) PO SCH (21:31)
[2022-03-02] MEDS: MELATONIN 5 MG TABLETS PO SCH (21:31)
[2022-03-02] MEDS ORDERED: QUEtiapine FUMARATE 100 MG TABLET (FP) PO ONE (22:00)
[2022-03-03] MEDS ORDERED: methaDONE HCL 10 MG TABLET PO SCH (06:00)
[2022-03-03] MEDS ORDERED: methaDONE HCL 10 MG TABLET ONE (06:02)
[2022-03-03] MEDS ORDERED: methaDONE HCL 40 MG DISPERSABLE TABLET ONE (06:02)
[2022-03-03] MEDS: hydrOXYzine PAMOATE 25 MG CAPSULE (FP) PO SCH ×3 (06:29→13:43)
[2022-03-03] MEDS: PRENATAL VITAMINS W/ FOLIC ACID TABLET (FP) PO SCH (09:17)
[2022-03-03] MEDS: NICOTINE 7 MG/24 HOURS TOPICAL PATCH TD SCH (09:17)
[2022-03-03] MEDS ORDERED: hydrOXYzine PAMOATE 25 MG CAPSULE (FP) PO PRN (14:03)
[2022-03-03] MEDS: MELATONIN 5 MG TABLETS PO SCH (21:03)
[2022-03-03] MEDS: THIAMINE HCL 100 MG TABLET (FP) PO SCH (21:03)
[2022-03-03] MEDS ORDERED: QUEtiapine FUMARATE 100 MG TABLET (FP) PO SCH (22:00)
[2022-03-04] MEDS ORDERED: methaDONE HCL 10 MG TABLET ONE (03:13)
[2022-03-04] MEDS ORDERED: methaDONE HCL 40 MG DISPERSABLE TABLET ONE (03:14)
[2022-03-04] MEDS: PRENATAL VITAMINS W/ FOLIC ACID TABLET (FP) PO SCH (09:41)
[2022-03-04] MEDS: NICOTINE 7 MG/24 HOURS TOPICAL PATCH TD SCH (09:41)
[2022-03-04] MEDS: METHOCARBAMOL 500 MG TABLET PO PRN ×2 (09:42→21:21)
[2022-03-04 12:09] LABS: SARS-CoV-2 NAA Not Detected (Not Detected)
[2022-03-04] MEDS: MELATONIN 5 MG TABLETS PO SCH (21:20)
[2022-03-04] MEDS: THIAMINE HCL 100 MG TABLET (FP) PO SCH (21:20)
[2022-03-04] MEDS: QUEtiapine FUMARATE 50 MG TABLET PO SCH (21:21)
[2022-03-05] MEDS ORDERED: methaDONE HCL 10 MG TABLET ONE (03:10)
[2022-03-05] MEDS ORDERED: methaDONE HCL 40 MG DISPERSABLE TABLET ONE (03:10)
[2022-03-05] MEDS: NICOTINE 7 MG/24 HOURS TOPICAL PATCH TD SCH (10:08)
[2022-03-05] MEDS: PRENATAL VITAMINS W/ FOLIC ACID TABLET (FP) PO SCH (10:08)
[2022-03-05] MEDS: METHOCARBAMOL 500 MG TABLET PO PRN ×2 (10:09→21:32)
[2022-03-05] MEDS: MELATONIN 5 MG TABLETS PO SCH (21:31)
[2022-03-05] MEDS: THIAMINE HCL 100 MG TABLET (FP) PO SCH (21:31)
[2022-03-05] MEDS: QUEtiapine FUMARATE 50 MG TABLET PO SCH (21:32)
[2022-03-06] MEDS ORDERED: methaDONE HCL 10 MG TABLET ONE (06:02)
[2022-03-06] MEDS ORDERED: methaDONE HCL 40 MG DISPERSABLE TABLET ONE (06:03)
[2022-03-06] MEDS: NICOTINE 7 MG/24 HOURS TOPICAL PATCH TD SCH (09:13)
[2022-03-06] MEDS: PRENATAL VITAMINS W/ FOLIC ACID TABLET (FP) PO SCH (09:13)
[2022-03-06] MEDS: METHOCARBAMOL 500 MG TABLET PO PRN ×2 (09:14→21:07)
[2022-03-06] MEDS: THIAMINE HCL 100 MG TABLET (FP) PO SCH (21:07)
[2022-03-06] MEDS: MELATONIN 5 MG TABLETS PO SCH (21:07)
[2022-03-06] MEDS: QUEtiapine FUMARATE 50 MG TABLET PO SCH (21:07)
[2022-03-07] MEDS ORDERED: methaDONE HCL 10 MG TABLET ONE (04:23)
[2022-03-07] MEDS ORDERED: methaDONE HCL 40 MG DISPERSABLE TABLET ONE (04:23)
[2022-03-07] MEDS: PRENATAL VITAMINS W/ FOLIC ACID TABLET (FP) PO SCH (10:20)
[2022-03-07] MEDS: METHOCARBAMOL 500 MG TABLET PO PRN (10:22)
[2022-03-07] MEDS: IBUPROFEN 400 MG TABLET (FP) PO PRN (10:22)
[2022-03-07] MEDS: NICOTINE 7 MG/24 HOURS TOPICAL PATCH TD SCH (10:23)
[2022-03-07] MEDS: HYDROCHLOROTHIAZIDE 25 MG TABLET (FP) PO SCH (12:12)
[2022-03-07] MEDS: THIAMINE HCL 100 MG TABLET (FP) PO SCH (21:49)
[2022-03-07] MEDS: MELATONIN 5 MG TABLETS PO SCH (21:49)
[2022-03-07] MEDS: QUEtiapine FUMARATE 50 MG TABLET PO SCH (21:49)
[2022-03-08] MEDS ORDERED: methaDONE HCL 10 MG TABLET ONE (05:14)
[2022-03-08] MEDS ORDERED: methaDONE HCL 40 MG DISPERSABLE TABLET ONE (05:14)
[2022-03-08] MEDS: IBUPROFEN 400 MG TABLET (FP) PO PRN (07:58)
[2022-03-08] MEDS: HYDROCHLOROTHIAZIDE 25 MG TABLET (FP) PO SCH (09:40)
[2022-03-08] MEDS: NICOTINE 7 MG/24 HOURS TOPICAL PATCH TD SCH (09:40)
[2022-03-08] MEDS: PRENATAL VITAMINS W/ FOLIC ACID TABLET (FP) PO SCH (09:40)
[2022-03-08] MEDS: METHOCARBAMOL 500 MG TABLET PO PRN ×2 (09:41→21:08)
[2022-03-08] MEDS: THIAMINE HCL 100 MG TABLET (FP) PO SCH (21:06)
[2022-03-08] MEDS: MELATONIN 5 MG TABLETS PO SCH (21:06)
[2022-03-08] MEDS: QUEtiapine FUMARATE 50 MG TABLET PO SCH (21:07)
[2022-03-09] MEDS ORDERED: methaDONE HCL 10 MG TABLET ONE (03:34)
[2022-03-09] MEDS ORDERED: methaDONE HCL 40 MG DISPERSABLE TABLET ONE (03:35)
[2022-03-09] MEDS: PRENATAL VITAMINS W/ FOLIC ACID TABLET (FP) PO SCH (09:34)
[2022-03-09] MEDS: NICOTINE 7 MG/24 HOURS TOPICAL PATCH TD SCH (09:34)
[2022-03-09] MEDS: HYDROCHLOROTHIAZIDE 25 MG TABLET (FP) PO SCH (09:34)
[2022-03-09] MEDS: METHOCARBAMOL 500 MG TABLET PO PRN ×2 (09:42→21:29)
[2022-03-09] MEDS: THIAMINE HCL 100 MG TABLET (FP) PO SCH (21:29)
[2022-03-09] MEDS: QUEtiapine FUMARATE 50 MG TABLET PO SCH (21:29)
[2022-03-09] MEDS: MELATONIN 5 MG TABLETS PO SCH (21:29)
[2022-03-10] MEDS ORDERED: methaDONE HCL 10 MG TABLET ONE (06:04)
[2022-03-10] MEDS ORDERED: methaDONE HCL 40 MG DISPERSABLE TABLET ONE (06:05)
[2022-03-10] MEDS: HYDROCHLOROTHIAZIDE 25 MG TABLET (FP) PO SCH (09:45)
[2022-03-10] MEDS: PRENATAL VITAMINS W/ FOLIC ACID TABLET (FP) PO SCH (09:46)
[2022-03-10] MEDS: METHOCARBAMOL 500 MG TABLET PO PRN ×2 (09:46→21:32)
[2022-03-10] MEDS: NICOTINE 7 MG/24 HOURS TOPICAL PATCH TD SCH (09:47)
[2022-03-10] MEDS: FERROUS SO4 325 MG TABLET (FP) PO SCH (16:58)
[2022-03-10] MEDS: MELATONIN 5 MG TABLETS PO SCH (21:31)
[2022-03-10] MEDS: THIAMINE HCL 100 MG TABLET (FP) PO SCH (21:31)
[2022-03-10] MEDS: QUEtiapine FUMARATE 50 MG TABLET PO SCH (21:31)
[2022-03-11] MEDS ORDERED: methaDONE HCL 10 MG TABLET ONE (03:00)
[2022-03-11] MEDS ORDERED: methaDONE HCL 40 MG DISPERSABLE TABLET ONE (03:01)
[2022-03-11] MEDS: FERROUS SO4 325 MG TABLET (FP) PO SCH ×2 (07:00→17:55)
[2022-03-11] MEDS: METHOCARBAMOL 500 MG TABLET PO PRN ×2 (10:03→21:52)
[2022-03-11] MEDS: NICOTINE 7 MG/24 HOURS TOPICAL PATCH TD SCH (10:03)
[2022-03-11] MEDS: PRENATAL VITAMINS W/ FOLIC ACID TABLET (FP) PO SCH (10:03)
[2022-03-11] MEDS: HYDROCHLOROTHIAZIDE 25 MG TABLET (FP) PO SCH (10:03)
[2022-03-11] MEDS: MELATONIN 5 MG TABLETS PO SCH (21:51)
[2022-03-11] MEDS: THIAMINE HCL 100 MG TABLET (FP) PO SCH (21:52)
[2022-03-11] MEDS: QUEtiapine FUMARATE 50 MG TABLET PO SCH (21:52)
[2022-03-12] MEDS ORDERED: methaDONE HCL 40 MG DISPERSABLE TABLET ONE (03:20)
[2022-03-12] MEDS ORDERED: methaDONE HCL 10 MG TABLET ONE (03:20)
[2022-03-12] MEDS: FERROUS SO4 325 MG TABLET (FP) PO SCH ×2 (07:00→17:26)
[2022-03-12] MEDS: HYDROCHLOROTHIAZIDE 25 MG TABLET (FP) PO SCH (10:10)
[2022-03-12] MEDS: METHOCARBAMOL 500 MG TABLET PO PRN (10:11)
[2022-03-12] MEDS: PRENATAL VITAMINS W/ FOLIC ACID TABLET (FP) PO SCH (10:11)
[2022-03-12] MEDS: NICOTINE 7 MG/24 HOURS TOPICAL PATCH TD SCH (10:11)
[2022-03-12] MEDS: THIAMINE HCL 100 MG TABLET (FP) PO SCH (21:07)
[2022-03-12] MEDS: MELATONIN 5 MG TABLETS PO SCH (21:07)
[2022-03-12] MEDS: QUEtiapine FUMARATE 50 MG TABLET PO SCH (21:07)
[2022-03-13] MEDS ORDERED: methaDONE HCL 40 MG DISPERSABLE TABLET ONE (03:06)
[2022-03-13] MEDS ORDERED: methaDONE HCL 10 MG TABLET ONE (03:06)
[2022-03-13 06:40] VITALS: TEMP 96.9
[2022-03-13] MEDS: FERROUS SO4 325 MG TABLET (FP) PO SCH (07:06)
[2022-03-13 09:15] VITALS: BP 119/74; PULSE 94
[2022-03-13] MEDS: HYDROCHLOROTHIAZIDE 25 MG TABLET (FP) PO SCH (09:16)
[2022-03-13] MEDS: NICOTINE 7 MG/24 HOURS TOPICAL PATCH TD SCH (09:16)
[2022-03-13] MEDS: PRENATAL VITAMINS W/ FOLIC ACID TABLET (FP) PO SCH (09:16)
== END 2022-03-13 09:25 | disposition home or self-care (01) | DRG 772 ==
LOC: YASAS 17:31 → Y3E 17:34
PROVIDERS: ADMIT Allergy & Immunology; ATTEND Allergy & Immunology
PROC: HZ42ZZZ Group Counseling for Substance Abuse Treatment, Cognitive-Behavioral (ICD-10-PCS; principal; 2022-03-02)
DX: F11.20 Opioid dependence, uncomplicated (principal); F10.20 Alcohol dependence, uncomplicated; F14.20 Cocaine dependence, uncomplicated; F13.20 Sedative, hypnotic or anxiolytic dependence, uncomplicated; F25.9 Schizoaffective disorder, unspecified; F19.282 Other psychoactive substance dependence with psychoactive substance-induced sleep disorder; I10 Essential (primary) hypertension; D64.9 Anemia, unspecified; M17.0 Bilateral primary osteoarthritis of knee; R60.0 Localized edema; I87.8 Other specified disorders of veins; Z86.19 Personal history of other infectious and parasitic diseases; Z99.89 Dependence on other enabling machines and devices; Z91.012 Allergy to eggs
CPT/HCPCS: C9803-CS; U0003; U0005

== ENCOUNTER 2022-06-08 09:27 | Inpatient (IN) | payer OTHER ==
[2022-06-08 12:01] VITALS: BMI 33.0
[2022-06-08] MEDS ORDERED: NICOTINE 10 MG CARTRIDGE (INHALER) IH PRN (13:29)
[2022-06-08] MEDS ORDERED: ONDANSETRON *ODT* 4 MG TABLET SL PRN (13:29)
[2022-06-08] MEDS ORDERED: IBUPROFEN 400 MG TABLET (FP) PO PRN (13:29)
[2022-06-08] MEDS ORDERED: NALOXONE HCL (KLOXXADO) 8 MG SPRAY NS PRN (13:29)
[2022-06-08] MEDS ORDERED: LOPERAMIDE HCL 2 MG CAPSULE PO PRN (13:29)
[2022-06-08] MEDS ORDERED: MAG HYDROX/AL HYDROX/SIMETH 30 ML UNIT-DOSE CUP PO PRN (13:29)
[2022-06-08] MEDS ORDERED: BENZOCAINE/MENTHOL (CHLORASEPTIC ) LOZENGE MM PRN (13:29)
[2022-06-08] MEDS ORDERED: ACETAMINOPHEN 325 MG TABLET (FP) PO PRN ×2 (13:29)
[2022-06-08] MEDS ORDERED: MAGNESIUM CITRATE 300 ML BOTTLE PO PRN (13:29)
[2022-06-08] MEDS ORDERED: MAGNESIUM HYDROX 2400MG/30ML ORAL SUSPENSION 30 ML CUP PO PRN (13:29)
[2022-06-08] MEDS ORDERED: BISMUTH SUBSALICYLATE 524 MG/30 ML PO PRN (13:29)
[2022-06-08] MEDS ORDERED: DICYCLOMINE HCL 10 MG CAPSULE PO PRN (13:29)
[2022-06-08] MEDS ORDERED: IBUPROFEN 600 MG TABLET (FP) PO PRN (13:29)
[2022-06-08] MEDS ORDERED: hydrOXYzine PAMOATE 25 MG CAPSULE (FP) PO SCH (14:00)
[2022-06-08] MEDS: diazePAM 5 MG TABLET PO SCH ×2 (18:03→22:37)
[2022-06-08] MEDS: THIAMINE HCL 100 MG TABLET (FP) PO SCH (22:36)
[2022-06-08] MEDS: METHOCARBAMOL 500 MG TABLET PO PRN (22:36)
[2022-06-08] MEDS: MELATONIN 5 MG TABLETS PO SCH (22:36)
[2022-06-08] MEDS: hydrOXYzine PAMOATE 25 MG CAPSULE (FP) PO PRN (22:36)
[2022-06-09] MEDS: diazePAM 5 MG TABLET PO SCH ×4 (05:46→22:33)
[2022-06-09] MEDS: METHOCARBAMOL 500 MG TABLET PO PRN ×2 (05:47→18:14)
[2022-06-09] MEDS ORDERED: methaDONE HCL 10 MG TABLET PO SCH (09:30)
[2022-06-09] MEDS ORDERED: methaDONE HCL 10 MG TABLET ONE (09:54)
[2022-06-09] MEDS ORDERED: methaDONE HCL 40 MG DISPERSABLE TABLET ONE (09:55)
[2022-06-09] MEDS: PRENATAL VITAMINS W/ FOLIC ACID TABLET (FP) PO SCH (10:05)
[2022-06-09] MEDS: diazePAM 5 MG TABLET PO PRN (14:02)
[2022-06-09] MEDS: THIAMINE HCL 100 MG TABLET (FP) PO SCH (22:32)
[2022-06-09] MEDS: MELATONIN 5 MG TABLETS PO SCH (22:33)
[2022-06-09] MEDS: hydrOXYzine PAMOATE 25 MG CAPSULE (FP) PO PRN (22:34)
[2022-06-10] MEDS ORDERED: methaDONE HCL 10 MG TABLET ONE (04:27)
[2022-06-10] MEDS ORDERED: methaDONE HCL 40 MG DISPERSABLE TABLET ONE (04:27)
[2022-06-10] MEDS: diazePAM 5 MG TABLET PO SCH ×3 (05:27→22:13)
[2022-06-10] MEDS: METHOCARBAMOL 500 MG TABLET PO PRN (05:32)
[2022-06-10] MEDS: diazePAM 5 MG TABLET PO PRN ×2 (10:03→17:40)
[2022-06-10] MEDS: PRENATAL VITAMINS W/ FOLIC ACID TABLET (FP) PO SCH (10:03)
[2022-06-10 12:09] LABS: HEMATOCRIT 34.5 % (35.4-49); MCH 28.9 pg (25.7-33.7); MEAN CELL VOLUME 90.2 fl (80-96); MEAN PLT VOLUME 8.4 fl (7.5-11.1); PLATELET COUNT 261 10^3/uL (134-434); RBC 3.82 M/mm3 (4.00-5.60); RDW 16.9 % (11.9-15.9); WHITE BLOOD COUNT 4.1 K/mm3 (4.0-10.0)
[2022-06-10 13:47] LABS: ALBUMIN 3.2 g/dl (3.4-5.0); BLOOD UREA NITROGEN 13.8 mg/dL (7-18); CALCIUM 9.3 mg/dL (8.5-10.1)
[2022-06-10 13:49] LABS: CREATININE 0.8 mg/dL (0.55-1.3); TOT PROT 7.5 g/dl (6.4-8.2)
[2022-06-10 14:05] LABS: BILIRUBIN,TOTAL 0.4 mg/dL (0.2-1)
[2022-06-10] MEDS: MELATONIN 5 MG TABLETS PO SCH (22:13)
[2022-06-10] MEDS: THIAMINE HCL 100 MG TABLET (FP) PO SCH (22:13)
[2022-06-11] MEDS ORDERED: methaDONE HCL 10 MG TABLET ONE (04:28)
[2022-06-11] MEDS ORDERED: methaDONE HCL 40 MG DISPERSABLE TABLET ONE (04:28)
[2022-06-11] MEDS: diazePAM 5 MG TABLET PO SCH ×2 (05:56→18:15)
[2022-06-11] MEDS: PRENATAL VITAMINS W/ FOLIC ACID TABLET (FP) PO SCH (10:16)
[2022-06-11] MEDS: hydrOXYzine PAMOATE 25 MG CAPSULE (FP) PO PRN (10:17)
[2022-06-11] MEDS: METHOCARBAMOL 500 MG TABLET PO PRN ×2 (10:18→18:15)
[2022-06-11] MEDS ORDERED: QUEtiapine FUMARATE 100 MG TABLET (FP) PO SCH (22:00)
[2022-06-11] MEDS: THIAMINE HCL 100 MG TABLET (FP) PO SCH (22:24)
[2022-06-11] MEDS: MELATONIN 5 MG TABLETS PO SCH (22:24)
[2022-06-12] MEDS ORDERED: methaDONE HCL 10 MG TABLET ONE (04:51)
[2022-06-12] MEDS ORDERED: methaDONE HCL 40 MG DISPERSABLE TABLET ONE (04:52)
[2022-06-12] MEDS ORDERED: diazePAM 5 MG TABLET PO ONE (06:00)
[2022-06-12] MEDS: PRENATAL VITAMINS W/ FOLIC ACID TABLET (FP) PO SCH (10:33)
[2022-06-12] MEDS: hydrOXYzine PAMOATE 25 MG CAPSULE (FP) PO PRN ×2 (10:34→17:33)
[2022-06-12] MEDS: METHOCARBAMOL 500 MG TABLET PO PRN (17:33)
[2022-06-12 18:09] VITALS: BP 108/65; PULSE 81; TEMP 97.5
== END 2022-06-12 19:17 | disposition other institution (70) | DRG 773 ==
LOC: YASAS 09:27 → Y3N 16:32
PROVIDERS: ADMIT Allergy & Immunology; ATTEND Surgery
PROC: HZ2ZZZZ Detoxification Services for Substance Abuse Treatment (ICD-10-PCS; principal; 2022-06-08)
DX: F10.230 Alcohol dependence with withdrawal, uncomplicated (principal); F11.20 Opioid dependence, uncomplicated; F14.20 Cocaine dependence, uncomplicated; F17.210 Nicotine dependence, cigarettes, uncomplicated; F25.9 Schizoaffective disorder, unspecified; F19.24 Other psychoactive substance dependence with psychoactive substance-induced mood disorder; G47.00 Insomnia, unspecified; M17.0 Bilateral primary osteoarthritis of knee; Z99.89 Dependence on other enabling machines and devices; Z87.438 Personal history of other diseases of male genital organs; Z56.0 Unemployment, unspecified; Z91.19 Patient's noncompliance with other medical treatment and regimen
CPT/HCPCS: 36415; 80053; 85027; 86780; 93005; 93010; C9803-CS; Q0162; U0003; U0005

== ENCOUNTER 2022-06-12 18:51 | Inpatient (IN) | payer OTHER ==
[2022-06-12] MEDS ORDERED: P-EPHED 60MG/TRIPROLIDI 2.5MG TABLET PO PRN (19:47)
[2022-06-12] MEDS ORDERED: LOPERAMIDE HCL 2 MG CAPSULE PO PRN (19:47)
[2022-06-12] MEDS ORDERED: MAG HYDROX/AL HYDROX/SIMETH 30 ML UNIT-DOSE CUP PO PRN (19:47)
[2022-06-12] MEDS ORDERED: BENZOCAINE/MENTHOL (CHLORASEPTIC ) LOZENGE MM PRN (19:47)
[2022-06-12] MEDS ORDERED: ACETAMINOPHEN 325 MG TABLET (FP) PO PRN (19:47)
[2022-06-12] MEDS ORDERED: MAGNESIUM HYDROX 2400MG/30ML ORAL SUSPENSION 30 ML CUP PO PRN (19:47)
[2022-06-12] MEDS ORDERED: guaiFENesin 200 MG/10 ML 10 ML UNIT-DOSE CUPS PO PRN (19:47)
[2022-06-12] MEDS ORDERED: MAGNESIUM CITRATE 300 ML BOTTLE PO PRN (19:47)
[2022-06-12] MEDS: QUEtiapine FUMARATE 100 MG TABLET (FP) PO SCH (21:23)
[2022-06-12] MEDS: THIAMINE HCL 100 MG TABLET (FP) PO SCH (21:23)
[2022-06-12] MEDS: MELATONIN 5 MG TABLETS PO SCH (21:23)
[2022-06-13] MEDS ORDERED: methaDONE HCL 10 MG TABLET ONE (05:08)
[2022-06-13] MEDS ORDERED: methaDONE HCL 40 MG DISPERSABLE TABLET ONE (05:09)
[2022-06-13] MEDS ORDERED: methaDONE HCL 40 MG DISPERSABLE TABLET PO SCH (06:00)
[2022-06-13] MEDS: PRENATAL VITAMINS W/ FOLIC ACID TABLET (FP) PO SCH (09:48)
[2022-06-13 13:29] LABS: HIV INTERPRETATION NEGATIVE (NEGATIVE)
[2022-06-13] MEDS: QUEtiapine FUMARATE 100 MG TABLET (FP) PO SCH (21:35)
[2022-06-13] MEDS: MELATONIN 5 MG TABLETS PO SCH (21:35)
[2022-06-13] MEDS: THIAMINE HCL 100 MG TABLET (FP) PO SCH (21:35)
[2022-06-14] MEDS ORDERED: methaDONE HCL 40 MG DISPERSABLE TABLET ONE (03:28)
[2022-06-14] MEDS ORDERED: methaDONE HCL 10 MG TABLET ONE (03:28)
[2022-06-14] MEDS: PRENATAL VITAMINS W/ FOLIC ACID TABLET (FP) PO SCH (09:58)
[2022-06-14] MEDS: IBUPROFEN 400 MG TABLET (FP) PO PRN (16:43)
[2022-06-14] MEDS: QUEtiapine FUMARATE 100 MG TABLET (FP) PO SCH (21:39)
[2022-06-14] MEDS: MELATONIN 5 MG TABLETS PO SCH (21:40)
[2022-06-14] MEDS: METHOCARBAMOL 500 MG TABLET PO PRN (21:40)
[2022-06-14] MEDS: THIAMINE HCL 100 MG TABLET (FP) PO SCH (21:40)
[2022-06-15] MEDS ORDERED: methaDONE HCL 10 MG TABLET ONE (04:43)
[2022-06-15] MEDS ORDERED: methaDONE HCL 40 MG DISPERSABLE TABLET ONE (04:44)
[2022-06-15] MEDS: PRENATAL VITAMINS W/ FOLIC ACID TABLET (FP) PO SCH (09:51)
[2022-06-15] MEDS: IBUPROFEN 400 MG TABLET (FP) PO PRN (09:52)
[2022-06-15] MEDS: QUEtiapine FUMARATE 100 MG TABLET (FP) PO SCH (21:19)
[2022-06-15] MEDS: MELATONIN 5 MG TABLETS PO SCH (21:19)
[2022-06-15] MEDS: THIAMINE HCL 100 MG TABLET (FP) PO SCH (21:19)
[2022-06-16] MEDS ORDERED: methaDONE HCL 10 MG TABLET ONE (03:20)
[2022-06-16] MEDS ORDERED: methaDONE HCL 40 MG DISPERSABLE TABLET ONE (03:20)
[2022-06-16] MEDS: IBUPROFEN 400 MG TABLET (FP) PO PRN ×2 (09:45→21:46)
[2022-06-16] MEDS: PRENATAL VITAMINS W/ FOLIC ACID TABLET (FP) PO SCH (09:45)
[2022-06-16] MEDS: MELATONIN 5 MG TABLETS PO SCH (21:45)
[2022-06-16] MEDS: hydrOXYzine PAMOATE 25 MG CAPSULE (FP) PO PRN (21:45)
[2022-06-16] MEDS: QUEtiapine FUMARATE 100 MG TABLET (FP) PO SCH (21:45)
[2022-06-16] MEDS: THIAMINE HCL 100 MG TABLET (FP) PO SCH (21:45)
[2022-06-17] MEDS ORDERED: methaDONE HCL 10 MG TABLET ONE (03:44)
[2022-06-17] MEDS ORDERED: methaDONE HCL 40 MG DISPERSABLE TABLET ONE (03:45)
[2022-06-17] MEDS: IBUPROFEN 400 MG TABLET (FP) PO PRN ×3 (06:14→21:41)
[2022-06-17] MEDS: PRENATAL VITAMINS W/ FOLIC ACID TABLET (FP) PO SCH (10:26)
[2022-06-17] MEDS: QUEtiapine FUMARATE 100 MG TABLET (FP) PO SCH (21:40)
[2022-06-17] MEDS: THIAMINE HCL 100 MG TABLET (FP) PO SCH (21:40)
[2022-06-17] MEDS: MELATONIN 5 MG TABLETS PO SCH (21:40)
[2022-06-18] MEDS ORDERED: methaDONE HCL 40 MG DISPERSABLE TABLET ONE (03:08)
[2022-06-18] MEDS ORDERED: methaDONE HCL 10 MG TABLET ONE (03:08)
[2022-06-18] MEDS: IBUPROFEN 400 MG TABLET (FP) PO PRN ×3 (06:10→21:20)
[2022-06-18] MEDS: PRENATAL VITAMINS W/ FOLIC ACID TABLET (FP) PO SCH (09:30)
[2022-06-18] MEDS: QUEtiapine FUMARATE 100 MG TABLET (FP) PO SCH (21:19)
[2022-06-18] MEDS: MELATONIN 5 MG TABLETS PO SCH (21:19)
[2022-06-18] MEDS: THIAMINE HCL 100 MG TABLET (FP) PO SCH (21:19)
[2022-06-19] MEDS ORDERED: methaDONE HCL 10 MG TABLET ONE (03:09)
[2022-06-19] MEDS ORDERED: methaDONE HCL 40 MG DISPERSABLE TABLET ONE (03:09)
[2022-06-19] MEDS: IBUPROFEN 400 MG TABLET (FP) PO PRN ×2 (06:29→12:42)
[2022-06-19] MEDS: PRENATAL VITAMINS W/ FOLIC ACID TABLET (FP) PO SCH (09:42)
[2022-06-19] MEDS: METHOCARBAMOL 500 MG TABLET PO PRN ×2 (09:43→21:36)
[2022-06-19] MEDS: MELATONIN 5 MG TABLETS PO SCH (21:36)
[2022-06-19] MEDS: THIAMINE HCL 100 MG TABLET (FP) PO SCH (21:36)
[2022-06-19] MEDS: QUEtiapine FUMARATE 100 MG TABLET (FP) PO SCH (21:36)
[2022-06-20] MEDS ORDERED: methaDONE HCL 10 MG TABLET PO SCH (06:00)
[2022-06-20] MEDS: IBUPROFEN 400 MG TABLET (FP) PO PRN ×3 (06:14→21:19)
[2022-06-20] MEDS ORDERED: methaDONE HCL 40 MG DISPERSABLE TABLET ONE (07:08)
[2022-06-20] MEDS ORDERED: methaDONE HCL 10 MG TABLET ONE (07:08)
[2022-06-20] MEDS: PRENATAL VITAMINS W/ FOLIC ACID TABLET (FP) PO SCH (09:34)
[2022-06-20] MEDS: METHOCARBAMOL 500 MG TABLET PO PRN (09:35)
[2022-06-20] MEDS: QUEtiapine FUMARATE 100 MG TABLET (FP) PO SCH (21:18)
[2022-06-20] MEDS: THIAMINE HCL 100 MG TABLET (FP) PO SCH (21:19)
[2022-06-20] MEDS: MELATONIN 5 MG TABLETS PO SCH (21:19)
[2022-06-21] MEDS ORDERED: methaDONE HCL 10 MG TABLET ONE (03:23)
[2022-06-21] MEDS ORDERED: methaDONE HCL 40 MG DISPERSABLE TABLET ONE (03:24)
[2022-06-21] MEDS: IBUPROFEN 400 MG TABLET (FP) PO PRN ×3 (06:19→21:12)
[2022-06-21] MEDS: PRENATAL VITAMINS W/ FOLIC ACID TABLET (FP) PO SCH (09:30)
[2022-06-21] MEDS: hydrOXYzine PAMOATE 25 MG CAPSULE (FP) PO PRN ×2 (09:30→21:13)
[2022-06-21] MEDS: METHOCARBAMOL 500 MG TABLET PO PRN ×2 (09:30→21:12)
[2022-06-21] MEDS: THIAMINE HCL 100 MG TABLET (FP) PO SCH (21:12)
[2022-06-21] MEDS: QUEtiapine FUMARATE 100 MG TABLET (FP) PO SCH (21:12)
[2022-06-21] MEDS: MELATONIN 5 MG TABLETS PO SCH (21:12)
[2022-06-22] MEDS ORDERED: methaDONE HCL 10 MG TABLET ONE (03:27)
[2022-06-22] MEDS ORDERED: methaDONE HCL 40 MG DISPERSABLE TABLET ONE (03:28)
[2022-06-22] MEDS: IBUPROFEN 400 MG TABLET (FP) PO PRN (06:11)
[2022-06-22] MEDS: METHOCARBAMOL 500 MG TABLET PO PRN ×2 (10:14→21:06)
[2022-06-22] MEDS: hydrOXYzine PAMOATE 25 MG CAPSULE (FP) PO PRN ×2 (10:14→21:06)
[2022-06-22] MEDS: PRENATAL VITAMINS W/ FOLIC ACID TABLET (FP) PO SCH (10:15)
[2022-06-22] MEDS: THIAMINE HCL 100 MG TABLET (FP) PO SCH (21:06)
[2022-06-22] MEDS: MELATONIN 5 MG TABLETS PO SCH (21:06)
[2022-06-22] MEDS: QUEtiapine FUMARATE 100 MG TABLET (FP) PO SCH (21:07)
[2022-06-23] MEDS ORDERED: methaDONE HCL 10 MG TABLET ONE (03:09)
[2022-06-23] MEDS ORDERED: methaDONE HCL 40 MG DISPERSABLE TABLET ONE (03:09)
[2022-06-23] MEDS: IBUPROFEN 400 MG TABLET (FP) PO PRN (06:10)
[2022-06-23] MEDS: METHOCARBAMOL 500 MG TABLET PO PRN ×2 (09:56→21:18)
[2022-06-23] MEDS: hydrOXYzine PAMOATE 25 MG CAPSULE (FP) PO PRN (09:57)
[2022-06-23] MEDS: PRENATAL VITAMINS W/ FOLIC ACID TABLET (FP) PO SCH (09:57)
[2022-06-23] MEDS: MELATONIN 5 MG TABLETS PO SCH (21:18)
[2022-06-23] MEDS: QUEtiapine FUMARATE 100 MG TABLET (FP) PO SCH (21:18)
[2022-06-23] MEDS: THIAMINE HCL 100 MG TABLET (FP) PO SCH (21:18)
[2022-06-24] MEDS ORDERED: methaDONE HCL 10 MG TABLET ONE (03:11)
[2022-06-24] MEDS ORDERED: methaDONE HCL 40 MG DISPERSABLE TABLET ONE (03:11)
[2022-06-24] MEDS: PRENATAL VITAMINS W/ FOLIC ACID TABLET (FP) PO SCH (09:41)
[2022-06-24] MEDS: IBUPROFEN 400 MG TABLET (FP) PO PRN (09:41)
[2022-06-24] MEDS: hydrOXYzine PAMOATE 25 MG CAPSULE (FP) PO PRN ×2 (09:42→21:05)
[2022-06-24] MEDS: METHOCARBAMOL 500 MG TABLET PO PRN (21:04)
[2022-06-24] MEDS: MELATONIN 5 MG TABLETS PO SCH (21:04)
[2022-06-24] MEDS: QUEtiapine FUMARATE 100 MG TABLET (FP) PO SCH (21:04)
[2022-06-24] MEDS: THIAMINE HCL 100 MG TABLET (FP) PO SCH (21:04)
[2022-06-25 06:26] VITALS: RESP 20
[2022-06-25] MEDS: hydrOXYzine PAMOATE 25 MG CAPSULE (FP) PO PRN (09:42)
[2022-06-25] MEDS: PRENATAL VITAMINS W/ FOLIC ACID TABLET (FP) PO SCH (09:42)
[2022-06-25] MEDS: METHOCARBAMOL 500 MG TABLET PO PRN ×2 (09:42→21:17)
[2022-06-25] MEDS: THIAMINE HCL 100 MG TABLET (FP) PO SCH (21:17)
[2022-06-25] MEDS: MELATONIN 5 MG TABLETS PO SCH (21:17)
[2022-06-25] MEDS: QUEtiapine FUMARATE 100 MG TABLET (FP) PO SCH (21:17)
[2022-06-26] MEDS: IBUPROFEN 400 MG TABLET (FP) PO PRN (06:09)
[2022-06-26 07:08] VITALS: BP 117/78; PULSE 90; TEMP 97.8
[2022-06-26] MEDS: PRENATAL VITAMINS W/ FOLIC ACID TABLET (FP) PO SCH (09:40)
== END 2022-06-26 09:33 | disposition home or self-care (01) | DRG 772 ==
LOC: YASAS 18:51 → Y3E 18:52
PROVIDERS: ADMIT Allergy & Immunology; ATTEND Family Medicine
PROC: HZ42ZZZ Group Counseling for Substance Abuse Treatment, Cognitive-Behavioral (ICD-10-PCS; principal; 2022-06-12)
DX: F10.20 Alcohol dependence, uncomplicated (principal); F11.20 Opioid dependence, uncomplicated; F17.210 Nicotine dependence, cigarettes, uncomplicated; G47.00 Insomnia, unspecified
CPT/HCPCS: 36415; 87389

== ENCOUNTER 2022-09-12 12:36 | Inpatient (IN) | payer OTHER ==
[2022-09-12 14:42] VITALS: BMI 33.9
[2022-09-12] MEDS ORDERED: DICYCLOMINE HCL 10 MG CAPSULE PO PRN (15:20)
[2022-09-12] MEDS ORDERED: MAG HYDROX/AL HYDROX/SIMETH 30 ML UNIT-DOSE CUP PO PRN (15:20)
[2022-09-12] MEDS ORDERED: BENZOCAINE/MENTHOL (CHLORASEPTIC ) LOZENGE MM PRN (15:20)
[2022-09-12] MEDS ORDERED: ONDANSETRON *ODT* 4 MG TABLET SL PRN (15:20)
[2022-09-12] MEDS ORDERED: NICOTINE 10 MG CARTRIDGE (INHALER) IH PRN (15:20)
[2022-09-12] MEDS ORDERED: ACETAMINOPHEN 325 MG TABLET (FP) PO PRN ×2 (15:20)
[2022-09-12] MEDS ORDERED: IBUPROFEN 400 MG TABLET (FP) PO PRN (15:20)
[2022-09-12] MEDS ORDERED: BISMUTH SUBSALICYLATE 524 MG/30 ML PO PRN (15:20)
[2022-09-12] MEDS ORDERED: LOPERAMIDE HCL 2 MG CAPSULE PO PRN (15:20)
[2022-09-12] MEDS ORDERED: NALOXONE HCL (KLOXXADO) 8 MG SPRAY NS PRN (15:20)
[2022-09-12] MEDS ORDERED: MAGNESIUM HYDROX 2400MG/30ML ORAL SUSPENSION 30 ML CUP PO PRN (15:20)
[2022-09-12] MEDS ORDERED: MAGNESIUM CITRATE 300 ML BOTTLE PO PRN (15:20)
[2022-09-12] MEDS: IBUPROFEN 600 MG TABLET (FP) PO PRN (17:46)
[2022-09-12] MEDS: hydrOXYzine PAMOATE 25 MG CAPSULE (FP) PO PRN (17:46)
[2022-09-12] MEDS ORDERED: chlordiazePOXIDE HCL 25 MG CAPSULE PO PRN (19:59)
[2022-09-12] MEDS: QUEtiapine FUMARATE 100 MG TABLET (FP) PO SCH (22:17)
[2022-09-12] MEDS: THIAMINE HCL 100 MG TABLET (FP) PO SCH (22:17)
[2022-09-12] MEDS: MELATONIN 5 MG TABLETS PO SCH (22:18)
[2022-09-12] MEDS: chlordiazePOXIDE HCL 25 MG CAPSULE PO SCH (22:20)
[2022-09-13] MEDS: chlordiazePOXIDE HCL 25 MG CAPSULE PO SCH ×4 (05:23→22:31)
[2022-09-13] MEDS: IBUPROFEN 600 MG TABLET (FP) PO PRN (05:25)
[2022-09-13] MEDS: METHOCARBAMOL 500 MG TABLET PO PRN ×2 (10:12→17:33)
[2022-09-13] MEDS: PRENATAL VITAMINS W/ FOLIC ACID TABLET (FP) PO SCH (10:12)
[2022-09-13] MEDS ORDERED: methaDONE HCL 40 MG DISPERSABLE TABLET PO SCH (10:30)
[2022-09-13 11:37] LABS: HEMATOCRIT 34.1 % (35.4-49); HEMOGLOBIN 11.2 GM/dL (11.7-16.9); MCH 29.8 pg (25.7-33.7); MCHC 32.8 g/dl (32.0-35.9); MEAN CELL VOLUME 90.8 fl (80-96); MEAN PLT VOLUME 7.8 fl (7.5-11.1); PLATELET COUNT 262 10^3/uL (134-434); RBC 3.76 M/mm3 (4.00-5.60); RDW 15.9 % (11.9-15.9); WHITE BLOOD COUNT 4.9 K/mm3 (4.0-10.0)
[2022-09-13 11:52] LABS: ALBUMIN 3.1 g/dl (3.4-5.0); BLOOD UREA NITROGEN 19.4 mg/dL (7-18); CALCIUM 8.7 mg/dL (8.5-10.1)
[2022-09-13 11:54] LABS: CREATININE 1.1 mg/dL (0.55-1.3)
[2022-09-13 11:56] LABS: BILIRUBIN,TOTAL 0.3 mg/dL (0.2-1)
[2022-09-13 12:39] LABS: HIV INTERPRETATION NEGATIVE (NEGATIVE)
[2022-09-13] MEDS: QUEtiapine FUMARATE 100 MG TABLET (FP) PO SCH (22:31)
[2022-09-13] MEDS: THIAMINE HCL 100 MG TABLET (FP) PO SCH (22:31)
[2022-09-13] MEDS: MELATONIN 5 MG TABLETS PO SCH (22:33)
[2022-09-14] MEDS ORDERED: methaDONE HCL 10 MG TABLET ONE (05:30)
[2022-09-14] MEDS: chlordiazePOXIDE HCL 25 MG CAPSULE PO SCH ×4 (05:42→22:20)
[2022-09-14] MEDS: methaDONE 240 MG, methaDONE 30 MG PO SCH (05:42)
[2022-09-14] MEDS ORDERED: METHADONE PO SCH (06:00)
[2022-09-14] MEDS: PRENATAL VITAMINS W/ FOLIC ACID TABLET (FP) PO SCH (10:10)
[2022-09-14] MEDS: METHOCARBAMOL 500 MG TABLET PO PRN ×2 (10:11→18:04)
[2022-09-14] MEDS: IBUPROFEN 600 MG TABLET (FP) PO PRN (19:58)
[2022-09-14] MEDS: QUEtiapine FUMARATE 100 MG TABLET (FP) PO SCH (22:19)
[2022-09-14] MEDS: THIAMINE HCL 100 MG TABLET (FP) PO SCH (22:19)
[2022-09-14] MEDS: MELATONIN 5 MG TABLETS PO SCH (22:20)
[2022-09-15] MEDS ORDERED: chlordiazePOXIDE HCL 10 MG CAPSULE PO PRN
[2022-09-15] MEDS: methaDONE 240 MG, methaDONE 30 MG PO SCH (05:33)
[2022-09-15] MEDS: chlordiazePOXIDE HCL 10 MG CAPSULE PO SCH ×4 (05:48→22:14)
[2022-09-15] MEDS: METHOCARBAMOL 500 MG TABLET PO PRN ×2 (10:23→17:56)
[2022-09-15] MEDS: hydrOXYzine PAMOATE 25 MG CAPSULE (FP) PO PRN (10:23)
[2022-09-15] MEDS: PRENATAL VITAMINS W/ FOLIC ACID TABLET (FP) PO SCH (10:23)
[2022-09-15] MEDS: IBUPROFEN 600 MG TABLET (FP) PO PRN ×2 (15:27→22:13)
[2022-09-15] MEDS: QUEtiapine FUMARATE 100 MG TABLET (FP) PO SCH (22:13)
[2022-09-15] MEDS: THIAMINE HCL 100 MG TABLET (FP) PO SCH (22:15)
[2022-09-15] MEDS: MELATONIN 5 MG TABLETS PO SCH (23:47)
[2022-09-16] MEDS ORDERED: chlordiazePOXIDE HCL 10 MG CAPSULE PO SCH (05:00)
[2022-09-16] MEDS: methaDONE 240 MG, methaDONE 30 MG PO SCH (05:50)
[2022-09-16] MEDS: PRENATAL VITAMINS W/ FOLIC ACID TABLET (FP) PO SCH (10:52)
[2022-09-16] MEDS: METHOCARBAMOL 500 MG TABLET PO PRN ×2 (10:52→22:28)
[2022-09-16] MEDS: hydrOXYzine PAMOATE 25 MG CAPSULE (FP) PO PRN (10:53)
[2022-09-16] MEDS ORDERED: chlordiazePOXIDE 5 MG CAPSULE PO SCH (17:00)
[2022-09-16] MEDS: IBUPROFEN 600 MG TABLET (FP) PO PRN ×2 (17:46→23:52)
[2022-09-16 21:49] VITALS: RESP 18
[2022-09-16] MEDS: QUEtiapine FUMARATE 100 MG TABLET (FP) PO SCH (22:26)
[2022-09-16] MEDS: THIAMINE HCL 100 MG TABLET (FP) PO SCH (22:26)
[2022-09-16] MEDS: MELATONIN 5 MG TABLETS PO SCH (22:26)
[2022-09-17] MEDS ORDERED: chlordiazePOXIDE HCL 10 MG CAPSULE PO ONE (05:00)
[2022-09-17] MEDS: methaDONE 240 MG, methaDONE 30 MG PO SCH (05:59)
[2022-09-17 07:13] VITALS: PULSE 87
[2022-09-17] MEDS: IBUPROFEN 600 MG TABLET (FP) PO PRN (08:10)
[2022-09-17] MEDS: PRENATAL VITAMINS W/ FOLIC ACID TABLET (FP) PO SCH (09:53)
[2022-09-17 10:20] VITALS: BP 102/69; TEMP 98.7
== END 2022-09-17 11:15 | disposition other institution (70) | DRG 773 ==
LOC: YASAS 12:36 → Y6N 16:50
PROVIDERS: ADMIT Allergy & Immunology; ATTEND Surgery
PROC: HZ2ZZZZ Detoxification Services for Substance Abuse Treatment (ICD-10-PCS; principal; 2022-09-12)
DX: F10.230 Alcohol dependence with withdrawal, uncomplicated (principal); F11.20 Opioid dependence, uncomplicated; F14.20 Cocaine dependence, uncomplicated; F17.210 Nicotine dependence, cigarettes, uncomplicated; F19.282 Other psychoactive substance dependence with psychoactive substance-induced sleep disorder; F25.9 Schizoaffective disorder, unspecified; M17.0 Bilateral primary osteoarthritis of knee; R60.0 Localized edema; Z86.69 Personal history of other diseases of the nervous system and sense organs; Z87.438 Personal history of other diseases of male genital organs; Z99.89 Dependence on other enabling machines and devices
CPT/HCPCS: 36415; 80053; 82962; 85027; 86780; 87389; 87811; 93005; 93010; C9803-CS; U0003; U0005

== ENCOUNTER 2022-09-19 14:15 | Inpatient (IN) | payer OTHER ==
[2022-09-19 15:25] VITALS: BMI 33.9
[2022-09-19] MEDS ORDERED: hydrOXYzine PAMOATE 25 MG CAPSULE (FP) PO PRN (16:49)
[2022-09-19] MEDS ORDERED: guaiFENesin 200 MG/10 ML 10 ML UNIT-DOSE CUPS PO PRN (16:49)
[2022-09-19] MEDS ORDERED: P-EPHED 60MG/TRIPROLIDI 2.5MG TABLET PO PRN (16:49)
[2022-09-19] MEDS ORDERED: MAGNESIUM CITRATE 300 ML BOTTLE PO PRN (16:49)
[2022-09-19] MEDS ORDERED: LOPERAMIDE HCL 2 MG CAPSULE PO PRN (16:49)
[2022-09-19] MEDS ORDERED: MAGNESIUM HYDROX 2400MG/30ML ORAL SUSPENSION 30 ML CUP PO PRN (16:49)
[2022-09-19] MEDS ORDERED: NICOTINE 10 MG CARTRIDGE (INHALER) IH PRN (16:49)
[2022-09-19] MEDS ORDERED: FUROSEMIDE 40 MG TABLET (FP) PO ONE (19:15)
[2022-09-19] MEDS: THIAMINE HCL 100 MG TABLET (FP) PO SCH (21:07)
[2022-09-19] MEDS: MELATONIN 5 MG TABLETS PO SCH (21:07)
[2022-09-20 00:19] LABS: PH,URINE 7.5 (5.0-8.0); URINE APPEARANCE CLEAR; URINE BILIRUBIN NEGATIVE (NEGATIVE); URINE COLOR YELLOW; URINE GLUCOSE (UA) NEGATIVE (NEGATIVE); URINE KETONE NEGATIVE (NEGATIVE); URINE LEUK ESTERASE NEGATIVE (NEGATIVE); URINE NITRITE NEGATIVE (NEGATIVE); URINE PROTEIN NEGATIVE (NEGATIVE); URINE UROBILINOGEN 0.2 mg/dL (0.2-1.0)
[2022-09-20] MEDS: IBUPROFEN 400 MG TABLET (FP) PO PRN (06:00)
[2022-09-20] MEDS ORDERED: methaDONE HCL 10 MG TABLET PO SCH (09:15)
[2022-09-20 09:28] LABS: HEMATOCRIT 32.3 % (35.4-49); HEMOGLOBIN 10.8 GM/dL (11.7-16.9); MCH 29.8 pg (25.7-33.7); MCHC 33.3 g/dl (32.0-35.9); MEAN CELL VOLUME 89.4 fl (80-96); MEAN PLT VOLUME 7.6 fl (7.5-11.1); PLATELET COUNT 300 10^3/uL (134-434); RBC 3.61 M/mm3 (4.00-5.60); RDW 15.2 % (11.9-15.9); WHITE BLOOD COUNT 4.1 K/mm3 (4.0-10.0)
[2022-09-20 09:31] LABS: CALCIUM 9.4 mg/dL (8.5-10.1)
[2022-09-20 09:32] LABS: ALBUMIN 3.4 g/dl (3.4-5.0); BLOOD UREA NITROGEN 14.2 mg/dL (7-18)
[2022-09-20 09:36] LABS: BILIRUBIN,TOTAL 0.2 mg/dL (0.2-1); TOT PROT 8.1 g/dl (6.4-8.2)
[2022-09-20] MEDS: methaDONE 240 MG, methaDONE 30 MG PO SCH (09:51)
[2022-09-20] MEDS: PRENATAL VITAMINS W/ FOLIC ACID TABLET (FP) PO SCH (09:52)
[2022-09-20] MEDS: FUROSEMIDE 40 MG TABLET (FP) PO SCH (09:52)
[2022-09-20] MEDS: NICOTINE 7 MG/24 HOURS TOPICAL PATCH TD SCH (09:52)
[2022-09-20] MEDS: MELATONIN 5 MG TABLETS PO SCH (21:05)
[2022-09-20] MEDS: THIAMINE HCL 100 MG TABLET (FP) PO SCH (21:05)
[2022-09-20] MEDS: QUEtiapine FUMARATE 100 MG TABLET (FP) PO SCH (21:05)
[2022-09-21] MEDS: methaDONE 240 MG, methaDONE 30 MG PO SCH (06:15)
[2022-09-21] MEDS: NICOTINE 7 MG/24 HOURS TOPICAL PATCH TD SCH (09:41)
[2022-09-21] MEDS: PRENATAL VITAMINS W/ FOLIC ACID TABLET (FP) PO SCH (09:41)
[2022-09-21] MEDS: FUROSEMIDE 40 MG TABLET (FP) PO SCH (09:41)
[2022-09-21] MEDS: IBUPROFEN 400 MG TABLET (FP) PO PRN (09:43)
[2022-09-21] MEDS: THIAMINE HCL 100 MG TABLET (FP) PO SCH (21:09)
[2022-09-21] MEDS: QUEtiapine FUMARATE 100 MG TABLET (FP) PO SCH (21:09)
[2022-09-21] MEDS: MELATONIN 5 MG TABLETS PO SCH (21:09)
[2022-09-22] MEDS: methaDONE 240 MG, methaDONE 30 MG PO SCH (06:12)
[2022-09-22] MEDS: PRENATAL VITAMINS W/ FOLIC ACID TABLET (FP) PO SCH (09:52)
[2022-09-22] MEDS: NICOTINE 7 MG/24 HOURS TOPICAL PATCH TD SCH (09:52)
[2022-09-22] MEDS: FUROSEMIDE 40 MG TABLET (FP) PO SCH (09:53)
[2022-09-22] MEDS: IBUPROFEN 400 MG TABLET (FP) PO PRN (09:55)
[2022-09-22 12:13] LABS: CALCIUM 9.1 mg/dL (8.5-10.1)
[2022-09-22 12:14] LABS: BLOOD UREA NITROGEN 15.7 mg/dL (7-18)
[2022-09-22 12:17] LABS: CREATININE 1.2 mg/dL (0.55-1.3)
[2022-09-22] MEDS: MELATONIN 5 MG TABLETS PO SCH (21:07)
[2022-09-22] MEDS: QUEtiapine FUMARATE 100 MG TABLET (FP) PO SCH (21:08)
[2022-09-22] MEDS: THIAMINE HCL 100 MG TABLET (FP) PO SCH (21:08)
[2022-09-22] MEDS: ACETAMINOPHEN 325 MG TABLET (FP) PO PRN (21:08)
[2022-09-23] MEDS: methaDONE 240 MG, methaDONE 30 MG PO SCH (06:02)
[2022-09-23] MEDS: FERROUS SO4 325 MG TABLET (FP) PO SCH (07:05)
[2022-09-23] MEDS: NICOTINE 7 MG/24 HOURS TOPICAL PATCH TD SCH (09:46)
[2022-09-23] MEDS: PRENATAL VITAMINS W/ FOLIC ACID TABLET (FP) PO SCH (09:46)
[2022-09-23] MEDS: ACETAMINOPHEN 325 MG TABLET (FP) PO PRN (09:47)
[2022-09-23] MEDS: IBUPROFEN 400 MG TABLET (FP) PO PRN (18:43)
[2022-09-23] MEDS: MELATONIN 5 MG TABLETS PO SCH (21:13)
[2022-09-23] MEDS: QUEtiapine FUMARATE 100 MG TABLET (FP) PO SCH (21:13)
[2022-09-23] MEDS: THIAMINE HCL 100 MG TABLET (FP) PO SCH (21:13)
[2022-09-24] MEDS: methaDONE 240 MG, methaDONE 30 MG PO SCH (06:43)
[2022-09-24] MEDS: FERROUS SO4 325 MG TABLET (FP) PO SCH (07:00)
[2022-09-24] MEDS: NICOTINE 7 MG/24 HOURS TOPICAL PATCH TD SCH (09:37)
[2022-09-24] MEDS: PRENATAL VITAMINS W/ FOLIC ACID TABLET (FP) PO SCH (09:37)
[2022-09-24] MEDS: IBUPROFEN 400 MG TABLET (FP) PO PRN (09:38)
[2022-09-24] MEDS: DOCUSATE SODIUM 100 MG CAPSULE (FP) PO SCH ×2 (11:06→16:59)
[2022-09-24] MEDS: PSYLLIUM 5.85 GM PACKET PO SCH (13:13)
[2022-09-24] MEDS: MELATONIN 5 MG TABLETS PO SCH (21:13)
[2022-09-24] MEDS: THIAMINE HCL 100 MG TABLET (FP) PO SCH (21:13)
[2022-09-24] MEDS: ACETAMINOPHEN 325 MG TABLET (FP) PO PRN (21:14)
[2022-09-24] MEDS: SENNOSIDES 8.6MG TABLET (FP) PO SCH (21:14)
[2022-09-24] MEDS: QUEtiapine FUMARATE 100 MG TABLET (FP) PO SCH (21:14)
[2022-09-25] MEDS: methaDONE 240 MG, methaDONE 30 MG PO SCH (06:15)
[2022-09-25] MEDS: FERROUS SO4 325 MG TABLET (FP) PO SCH (07:07)
[2022-09-25] MEDS: PRENATAL VITAMINS W/ FOLIC ACID TABLET (FP) PO SCH (09:59)
[2022-09-25] MEDS: NICOTINE 7 MG/24 HOURS TOPICAL PATCH TD SCH (10:02)
[2022-09-25] MEDS: DOCUSATE SODIUM 100 MG CAPSULE (FP) PO SCH ×2 (10:02→16:59)
[2022-09-25] MEDS: PSYLLIUM 5.85 GM PACKET PO SCH (10:03)
[2022-09-25] MEDS: IBUPROFEN 400 MG TABLET (FP) PO PRN (16:59)
[2022-09-25] MEDS: MELATONIN 5 MG TABLETS PO SCH (21:15)
[2022-09-25] MEDS: SENNOSIDES 8.6MG TABLET (FP) PO SCH (21:16)
[2022-09-25] MEDS: QUEtiapine FUMARATE 100 MG TABLET (FP) PO SCH (21:16)
[2022-09-25] MEDS: THIAMINE HCL 100 MG TABLET (FP) PO SCH (21:16)
[2022-09-26] MEDS: methaDONE 240 MG, methaDONE 30 MG PO SCH (06:01)
[2022-09-26] MEDS: FERROUS SO4 325 MG TABLET (FP) PO SCH (07:05)
[2022-09-26] MEDS: PSYLLIUM 5.85 GM PACKET PO SCH (10:01)
[2022-09-26] MEDS: DOCUSATE SODIUM 100 MG CAPSULE (FP) PO SCH ×2 (10:01→16:12)
[2022-09-26] MEDS: PRENATAL VITAMINS W/ FOLIC ACID TABLET (FP) PO SCH (10:01)
[2022-09-26] MEDS: NICOTINE 7 MG/24 HOURS TOPICAL PATCH TD SCH (10:01)
[2022-09-26] MEDS: MAG HYDROX/AL HYDROX/SIMETH 30 ML UNIT-DOSE CUP PO PRN (13:26)
[2022-09-26] MEDS: ACETAMINOPHEN 325 MG TABLET (FP) PO PRN (13:26)
[2022-09-26] MEDS: QUEtiapine FUMARATE 100 MG TABLET (FP) PO SCH (21:10)
[2022-09-26] MEDS: SENNOSIDES 8.6MG TABLET (FP) PO SCH (21:10)
[2022-09-26] MEDS: THIAMINE HCL 100 MG TABLET (FP) PO SCH (21:11)
[2022-09-26] MEDS: MELATONIN 5 MG TABLETS PO SCH (21:11)
[2022-09-27] MEDS ORDERED: methaDONE HCL 10 MG TABLET PO SCH (06:00)
[2022-09-27] MEDS: methaDONE 240 MG, methaDONE 30 MG PO SCH (06:24)
[2022-09-27] MEDS: FERROUS SO4 325 MG TABLET (FP) PO SCH (07:14)
[2022-09-27] MEDS: DOCUSATE SODIUM 100 MG CAPSULE (FP) PO SCH ×2 (09:40→17:25)
[2022-09-27] MEDS: NICOTINE 7 MG/24 HOURS TOPICAL PATCH TD SCH (09:40)
[2022-09-27] MEDS: PRENATAL VITAMINS W/ FOLIC ACID TABLET (FP) PO SCH (09:40)
[2022-09-27] MEDS: PSYLLIUM 5.85 GM PACKET PO SCH (09:41)
[2022-09-27] MEDS: SENNOSIDES 8.6MG TABLET (FP) PO SCH (21:13)
[2022-09-27] MEDS: MELATONIN 5 MG TABLETS PO SCH (21:13)
[2022-09-27] MEDS: THIAMINE HCL 100 MG TABLET (FP) PO SCH (21:13)
[2022-09-27] MEDS: QUEtiapine FUMARATE 100 MG TABLET (FP) PO SCH (21:13)
[2022-09-28] MEDS: methaDONE 240 MG, methaDONE 30 MG PO SCH (06:07)
[2022-09-28] MEDS: FERROUS SO4 325 MG TABLET (FP) PO SCH (07:05)
[2022-09-28] MEDS: DOCUSATE SODIUM 100 MG CAPSULE (FP) PO SCH ×2 (09:34→17:25)
[2022-09-28] MEDS: NICOTINE 7 MG/24 HOURS TOPICAL PATCH TD SCH (09:35)
[2022-09-28] MEDS: PRENATAL VITAMINS W/ FOLIC ACID TABLET (FP) PO SCH (09:35)
[2022-09-28] MEDS: PSYLLIUM 5.85 GM PACKET PO SCH (09:35)
[2022-09-28] MEDS: IBUPROFEN 400 MG TABLET (FP) PO PRN (21:17)
[2022-09-28] MEDS: THIAMINE HCL 100 MG TABLET (FP) PO SCH (21:18)
[2022-09-28] MEDS: QUEtiapine FUMARATE 100 MG TABLET (FP) PO SCH (21:18)
[2022-09-28] MEDS: MELATONIN 5 MG TABLETS PO SCH (21:18)
[2022-09-28] MEDS: SENNOSIDES 8.6MG TABLET (FP) PO SCH (21:18)
[2022-09-29] MEDS: methaDONE 240 MG, methaDONE 30 MG PO SCH (06:31)
[2022-09-29] MEDS: FERROUS SO4 325 MG TABLET (FP) PO SCH (07:00)
[2022-09-29] MEDS: PSYLLIUM 5.85 GM PACKET PO SCH (09:48)
[2022-09-29] MEDS: DOCUSATE SODIUM 100 MG CAPSULE (FP) PO SCH ×2 (09:48→17:27)
[2022-09-29] MEDS: NICOTINE 7 MG/24 HOURS TOPICAL PATCH TD SCH (09:48)
[2022-09-29] MEDS: PRENATAL VITAMINS W/ FOLIC ACID TABLET (FP) PO SCH (09:48)
[2022-09-29] MEDS: MELATONIN 5 MG TABLETS PO SCH (21:19)
[2022-09-29] MEDS: THIAMINE HCL 100 MG TABLET (FP) PO SCH (21:20)
[2022-09-29] MEDS: QUEtiapine FUMARATE 100 MG TABLET (FP) PO SCH (21:20)
[2022-09-29] MEDS: SENNOSIDES 8.6MG TABLET (FP) PO SCH (21:20)
[2022-09-30] MEDS: methaDONE 240 MG, methaDONE 30 MG PO SCH (05:56)
[2022-09-30] MEDS: FERROUS SO4 325 MG TABLET (FP) PO SCH (07:07)
[2022-09-30] MEDS: DOCUSATE SODIUM 100 MG CAPSULE (FP) PO SCH ×2 (09:52→17:14)
[2022-09-30] MEDS: PRENATAL VITAMINS W/ FOLIC ACID TABLET (FP) PO SCH (09:52)
[2022-09-30] MEDS: NICOTINE 7 MG/24 HOURS TOPICAL PATCH TD SCH (09:52)
[2022-09-30] MEDS: PSYLLIUM 5.85 GM PACKET PO SCH (09:52)
[2022-09-30] MEDS: MAG HYDROX/AL HYDROX/SIMETH 30 ML UNIT-DOSE CUP PO PRN (14:08)
[2022-09-30] MEDS: MELATONIN 5 MG TABLETS PO SCH (21:15)
[2022-09-30] MEDS: QUEtiapine FUMARATE 100 MG TABLET (FP) PO SCH (21:16)
[2022-09-30] MEDS: SENNOSIDES 8.6MG TABLET (FP) PO SCH (21:16)
[2022-09-30] MEDS: THIAMINE HCL 100 MG TABLET (FP) PO SCH (21:16)
[2022-10-01] MEDS: methaDONE 240 MG, methaDONE 30 MG PO SCH (05:57)
[2022-10-01] MEDS: FERROUS SO4 325 MG TABLET (FP) PO SCH (07:07)
[2022-10-01] MEDS: DOCUSATE SODIUM 100 MG CAPSULE (FP) PO SCH ×2 (09:40→17:04)
[2022-10-01] MEDS: PSYLLIUM 5.85 GM PACKET PO SCH (09:40)
[2022-10-01] MEDS: PRENATAL VITAMINS W/ FOLIC ACID TABLET (FP) PO SCH (09:41)
[2022-10-01] MEDS: NICOTINE 7 MG/24 HOURS TOPICAL PATCH TD SCH (09:42)
[2022-10-01] MEDS: MELATONIN 5 MG TABLETS PO SCH (21:06)
[2022-10-01] MEDS: SENNOSIDES 8.6MG TABLET (FP) PO SCH (21:06)
[2022-10-01] MEDS: THIAMINE HCL 100 MG TABLET (FP) PO SCH (21:07)
[2022-10-01] MEDS: QUEtiapine FUMARATE 100 MG TABLET (FP) PO SCH (21:07)
[2022-10-02] MEDS: methaDONE 240 MG, methaDONE 30 MG PO SCH (05:56)
[2022-10-02] MEDS: FERROUS SO4 325 MG TABLET (FP) PO SCH (07:14)
[2022-10-02] MEDS: PRENATAL VITAMINS W/ FOLIC ACID TABLET (FP) PO SCH (09:46)
[2022-10-02] MEDS: DOCUSATE SODIUM 100 MG CAPSULE (FP) PO SCH ×2 (09:47→16:50)
[2022-10-02] MEDS: PSYLLIUM 5.85 GM PACKET PO SCH (09:47)
[2022-10-02] MEDS: NICOTINE 7 MG/24 HOURS TOPICAL PATCH TD SCH (09:49)
[2022-10-02] MEDS: MAG HYDROX/AL HYDROX/SIMETH 30 ML UNIT-DOSE CUP PO PRN (16:50)
[2022-10-02] MEDS: SENNOSIDES 8.6MG TABLET (FP) PO SCH (21:15)
[2022-10-02] MEDS: MELATONIN 5 MG TABLETS PO SCH (21:16)
[2022-10-02] MEDS: THIAMINE HCL 100 MG TABLET (FP) PO SCH (21:16)
[2022-10-02] MEDS: QUEtiapine FUMARATE 100 MG TABLET (FP) PO SCH (21:16)
[2022-10-02] MEDS: IBUPROFEN 400 MG TABLET (FP) PO PRN (21:17)
[2022-10-03] MEDS: methaDONE 240 MG, methaDONE 30 MG PO SCH (06:40)
[2022-10-03] MEDS: FERROUS SO4 325 MG TABLET (FP) PO SCH (07:21)
[2022-10-03] MEDS: NICOTINE 7 MG/24 HOURS TOPICAL PATCH TD SCH (09:47)
[2022-10-03] MEDS: PSYLLIUM 5.85 GM PACKET PO SCH (09:47)
[2022-10-03] MEDS: DOCUSATE SODIUM 100 MG CAPSULE (FP) PO SCH ×2 (09:47→16:57)
[2022-10-03] MEDS: PRENATAL VITAMINS W/ FOLIC ACID TABLET (FP) PO SCH (09:47)
[2022-10-03] MEDS: MELATONIN 5 MG TABLETS PO SCH (21:14)
[2022-10-03] MEDS: QUEtiapine FUMARATE 100 MG TABLET (FP) PO SCH (21:14)
[2022-10-03] MEDS: SENNOSIDES 8.6MG TABLET (FP) PO SCH (21:14)
[2022-10-03] MEDS: THIAMINE HCL 100 MG TABLET (FP) PO SCH (21:14)
[2022-10-04] MEDS: methaDONE 240 MG, methaDONE 30 MG PO SCH (05:55)
[2022-10-04] MEDS: FERROUS SO4 325 MG TABLET (FP) PO SCH (07:02)
[2022-10-04] MEDS: PRENATAL VITAMINS W/ FOLIC ACID TABLET (FP) PO SCH (09:42)
[2022-10-04] MEDS: PSYLLIUM 5.85 GM PACKET PO SCH (09:42)
[2022-10-04] MEDS: NICOTINE 7 MG/24 HOURS TOPICAL PATCH TD SCH (09:42)
[2022-10-04] MEDS: DOCUSATE SODIUM 100 MG CAPSULE (FP) PO SCH ×2 (09:42→17:27)
[2022-10-04] MEDS: IBUPROFEN 400 MG TABLET (FP) PO PRN (14:19)
[2022-10-04] MEDS: SENNOSIDES 8.6MG TABLET (FP) PO SCH (21:14)
[2022-10-04] MEDS: MELATONIN 5 MG TABLETS PO SCH (21:14)
[2022-10-04] MEDS: QUEtiapine FUMARATE 100 MG TABLET (FP) PO SCH (21:15)
[2022-10-04] MEDS: THIAMINE HCL 100 MG TABLET (FP) PO SCH (21:15)
[2022-10-05 05:47] VITALS: TEMP 97
[2022-10-05] MEDS: methaDONE 240 MG, methaDONE 30 MG PO SCH (06:28)
[2022-10-05] MEDS: FERROUS SO4 325 MG TABLET (FP) PO SCH (07:08)
[2022-10-05] MEDS: PSYLLIUM 5.85 GM PACKET PO SCH (09:45)
[2022-10-05] MEDS: NICOTINE 7 MG/24 HOURS TOPICAL PATCH TD SCH (09:45)
[2022-10-05] MEDS: PRENATAL VITAMINS W/ FOLIC ACID TABLET (FP) PO SCH (09:45)
[2022-10-05] MEDS: DOCUSATE SODIUM 100 MG CAPSULE (FP) PO SCH ×2 (09:45→17:11)
[2022-10-05] MEDS: MELATONIN 5 MG TABLETS PO SCH (21:10)
[2022-10-05] MEDS: THIAMINE HCL 100 MG TABLET (FP) PO SCH (21:10)
[2022-10-05] MEDS: QUEtiapine FUMARATE 100 MG TABLET (FP) PO SCH (21:11)
[2022-10-05] MEDS: SENNOSIDES 8.6MG TABLET (FP) PO SCH (21:11)
[2022-10-06] MEDS: methaDONE 240 MG, methaDONE 30 MG PO SCH (06:07)
[2022-10-06 06:45] VITALS: RESP 18
[2022-10-06] MEDS: FERROUS SO4 325 MG TABLET (FP) PO SCH (07:13)
[2022-10-06] MEDS: NICOTINE 7 MG/24 HOURS TOPICAL PATCH TD SCH (09:04)
[2022-10-06] MEDS: PSYLLIUM 5.85 GM PACKET PO SCH (09:04)
[2022-10-06] MEDS: PRENATAL VITAMINS W/ FOLIC ACID TABLET (FP) PO SCH (09:04)
[2022-10-06] MEDS: DOCUSATE SODIUM 100 MG CAPSULE (FP) PO SCH (09:06)
[2022-10-06 11:22] VITALS: BP 125/73; PULSE 79
== END 2022-10-06 09:12 | disposition home or self-care (01) | DRG 772 ==
LOC: YASAS 14:15 → Y5N 18:25
PROVIDERS: ADMIT Allergy & Immunology; ATTEND Psychiatry & Neurology Psychiatry
PROC: HZ42ZZZ Group Counseling for Substance Abuse Treatment, Cognitive-Behavioral (ICD-10-PCS; principal; 2022-09-19)
DX: F10.20 Alcohol dependence, uncomplicated (principal); F11.20 Opioid dependence, uncomplicated; F14.20 Cocaine dependence, uncomplicated; F12.20 Cannabis dependence, uncomplicated; F17.210 Nicotine dependence, cigarettes, uncomplicated; F25.9 Schizoaffective disorder, unspecified; I73.9 Peripheral vascular disease, unspecified; M17.0 Bilateral primary osteoarthritis of knee; R60.0 Localized edema; Z99.89 Dependence on other enabling machines and devices
CPT/HCPCS: 36415; 80048; 80053; 81003; 85027; 86780; 87811; C9803-CS; U0003; U0005

== ENCOUNTER 2023-01-25 10:54 | Inpatient (IN) | payer OTHER ==
[2023-01-25 14:45] VITALS: BMI 29.8
[2023-01-25] MEDS ORDERED: BISMUTH SUBSALICYLATE 524 MG/30 ML PO PRN (16:42)
[2023-01-25] MEDS ORDERED: LOPERAMIDE HCL 2 MG CAPSULE PO PRN (16:42)
[2023-01-25] MEDS ORDERED: NICOTINE 10 MG CARTRIDGE (INHALER) IH PRN (16:42)
[2023-01-25] MEDS ORDERED: BENZOCAINE/MENTHOL (CHLORASEPTIC ) LOZENGE MM PRN (16:42)
[2023-01-25] MEDS ORDERED: DICYCLOMINE HCL 10 MG CAPSULE PO PRN (16:42)
[2023-01-25] MEDS ORDERED: NALOXONE HCL (KLOXXADO) 8 MG SPRAY NS PRN (16:42)
[2023-01-25] MEDS ORDERED: METHOCARBAMOL 500 MG TABLET PO PRN (16:42)
[2023-01-25] MEDS ORDERED: ONDANSETRON *ODT* 4 MG TABLET SL PRN (16:42)
[2023-01-25] MEDS ORDERED: NICOTINE POLACRILEX 2 MG GUM BUC PRN (16:42)
[2023-01-25] MEDS ORDERED: guaiFENesin 200 MG/10 ML 10 ML UNIT-DOSE CUPS PO PRN (16:42)
[2023-01-25] MEDS ORDERED: MELATONIN 5 MG TABLETS PO PRN (16:42)
[2023-01-25] MEDS ORDERED: ACETAMINOPHEN 325 MG TABLET (FP) PO PRN ×2 (16:42)
[2023-01-25] MEDS ORDERED: MAG HYDROX/AL HYDROX/SIMETH 30 ML UNIT-DOSE CUP PO PRN (16:42)
[2023-01-25] MEDS ORDERED: POLYETHYLENE GLYCOL (HEALTHYLAX) 3350 17 GM PACKET PO PRN (16:42)
[2023-01-25] MEDS ORDERED: NALOXONE HCL 0.4 MG/ML VIAL IM PRN (16:42)
[2023-01-25] MEDS ORDERED: IBUPROFEN 600 MG TABLET (FP) PO PRN (16:42)
[2023-01-25] MEDS ORDERED: IBUPROFEN 400 MG TABLET (FP) PO PRN (16:42)
[2023-01-25] MEDS ORDERED: MAGNESIUM HYDROX 2400MG/30ML ORAL SUSPENSION 30 ML CUP PO PRN (16:42)
[2023-01-25] MEDS ORDERED: P-EPHED 60MG/TRIPROLIDI 2.5MG TABLET PO PRN (16:42)
[2023-01-25 21:18] VITALS: BP 101/54; PULSE 84; RESP 18; TEMP 97.5
[2023-01-25] MEDS ORDERED: THIAMINE HCL 100 MG TABLET (FP) PO SCH (22:00)
[2023-01-26] MEDS ORDERED: PRENATAL VITAMINS W/ FOLIC ACID TABLET (FP) PO SCH (10:00)
== END 2023-01-26 06:50 | disposition left against medical advice (07) | DRG 770 ==
LOC: YASAS 10:54 → Y3N 16:52
PROVIDERS: ADMIT Allergy & Immunology; ATTEND Surgery
PROC: HZ2ZZZZ Detoxification Services for Substance Abuse Treatment (ICD-10-PCS; principal; 2023-01-25)
DX: F10.20 Alcohol dependence, uncomplicated (principal); F11.10 Opioid abuse, uncomplicated; F14.20 Cocaine dependence, uncomplicated; F17.210 Nicotine dependence, cigarettes, uncomplicated; F20.9 Schizophrenia, unspecified; R26.89 Other abnormalities of gait and mobility; Z99.89 Dependence on other enabling machines and devices
CPT/HCPCS: C9803-CS; U0003; U0005

== ENCOUNTER 2023-05-19 14:42 | Inpatient (IN) | payer OTHER ==
[2023-05-19 15:32] VITALS: BMI 30.7
[2023-05-19] MEDS ORDERED: NALOXONE HCL 0.4 MG/ML VIAL IM PRN (18:01)
[2023-05-19] MEDS ORDERED: LOPERAMIDE HCL 2 MG CAPSULE PO PRN (18:01)
[2023-05-19] MEDS ORDERED: POLYETHYLENE GLYCOL (HEALTHYLAX) 3350 17 GM PACKET PO PRN (18:01)
[2023-05-19] MEDS ORDERED: BISMUTH SUBSALICYLATE 524 MG/30 ML PO PRN (18:01)
[2023-05-19] MEDS ORDERED: ACETAMINOPHEN 325 MG TABLET (FP) PO PRN (18:01)
[2023-05-19] MEDS ORDERED: DICYCLOMINE HCL 10 MG CAPSULE PO PRN (18:01)
[2023-05-19] MEDS ORDERED: ONDANSETRON *ODT* 4 MG TABLET SL PRN (18:01)
[2023-05-19] MEDS ORDERED: NICOTINE POLACRILEX 2 MG GUM BUC PRN (18:01)
[2023-05-19] MEDS ORDERED: P-EPHED 60MG/TRIPROLIDI 2.5MG TABLET PO PRN (18:01)
[2023-05-19] MEDS ORDERED: BENZOCAINE/MENTHOL (CHLORASEPTIC ) LOZENGE MM PRN (18:01)
[2023-05-19] MEDS ORDERED: NALOXONE HCL (KLOXXADO) 8 MG SPRAY NS PRN (18:01)
[2023-05-19] MEDS ORDERED: MAG HYDROX/AL HYDROX/SIMETH 30 ML UNIT-DOSE CUP PO PRN (18:01)
[2023-05-19] MEDS ORDERED: guaiFENesin 600 MG TABLET.ER (FP) PO PRN (18:01)
[2023-05-19] MEDS ORDERED: NICOTINE 10 MG CARTRIDGE (INHALER) IH PRN (18:01)
[2023-05-19] MEDS ORDERED: BENZONATATE 200 MG CAPSULE PO PRN (18:01)
[2023-05-19] MEDS ORDERED: MAGNESIUM HYDROX 2400MG/30ML ORAL SUSPENSION 30 ML CUP PO PRN (18:01)
[2023-05-19] MEDS ORDERED: VITAMINS A AND D TOPICAL OINTMENT 60 GM TUBE TP PRN (18:04)
[2023-05-19] MEDS: chlordiazePOXIDE HCL 25 MG CAPSULE PO PRN ×2 (19:29→23:24)
[2023-05-19] MEDS: hydrOXYzine PAMOATE 25 MG CAPSULE (FP) PO PRN (19:29)
[2023-05-19] MEDS: IBUPROFEN 600 MG TABLET (FP) PO PRN (19:30)
[2023-05-19] MEDS: THIAMINE HCL 100 MG TABLET (FP) PO SCH (22:19)
[2023-05-19] MEDS: MELATONIN 5 MG TABLETS PO SCH (22:19)
[2023-05-20] MEDS: hydrOXYzine PAMOATE 25 MG CAPSULE (FP) PO PRN (05:28)
[2023-05-20] MEDS: chlordiazePOXIDE HCL 25 MG CAPSULE PO PRN ×2 (05:29→14:15)
[2023-05-20] MEDS: IBUPROFEN 600 MG TABLET (FP) PO PRN ×2 (05:30→17:22)
[2023-05-20] MEDS ORDERED: methaDONE HCL 40 MG DISPERSABLE TABLET PO SCH (09:15)
[2023-05-20] MEDS: PRENATAL VITAMINS W/ FOLIC ACID TABLET (FP) PO SCH (10:06)
[2023-05-20] MEDS: chlordiazePOXIDE HCL 25 MG CAPSULE PO SCH ×3 (10:06→22:05)
[2023-05-20] MEDS: SILVER SULFADIAZINE 1% TOP CREAM 50 GM JAR TP SCH ×2 (10:14→22:05)
[2023-05-20] MEDS ORDERED: methaDONE HCL 10 MG TABLET PO ONE (10:33)
[2023-05-20 10:41] LABS: HEMATOCRIT 32.6 % (35.4-49); HEMOGLOBIN 10.4 GM/dL (11.7-16.9); MCHC 31.9 g/dl (32.0-35.9); MEAN PLT VOLUME 8.6 fl (7.5-11.1); PLATELET COUNT 302 10^3/uL (134-434); RBC 3.71 M/mm3 (4.00-5.60); WHITE BLOOD COUNT 6.1 K/mm3 (4.0-10.0)
[2023-05-20] MEDS ORDERED: methaDONE 240 MG, methaDONE 30 MG PO ONE (10:50)
[2023-05-20 10:53] LABS: CALCIUM 8.7 mg/dL (8.5-10.1)
[2023-05-20 10:54] LABS: ALBUMIN 3.3 g/dl (3.4-5.0); BLOOD UREA NITROGEN 13.5 mg/dL (7-18)
[2023-05-20 10:57] LABS: CREATININE 0.9 mg/dL (0.55-1.3)
[2023-05-20 10:59] LABS: BILIRUBIN,TOTAL 0.6 mg/dL (0.2-1); TOT PROT 7.6 g/dl (6.4-8.2)
[2023-05-20] MEDS: CLINDAMYCIN HCL 150 MG CAPSULE (FP) PO SCH ×2 (13:33→22:05)
[2023-05-20] MEDS: QUEtiapine FUMARATE 100 MG TABLET (FP) PO SCH (22:05)
[2023-05-20] MEDS: THIAMINE HCL 100 MG TABLET (FP) PO SCH (22:06)
[2023-05-20] MEDS: MELATONIN 5 MG TABLETS PO SCH (22:06)
[2023-05-21] MEDS: chlordiazePOXIDE HCL 25 MG CAPSULE PO SCH ×4 (05:19→22:29)
[2023-05-21] MEDS: CLINDAMYCIN HCL 150 MG CAPSULE (FP) PO SCH ×3 (05:19→22:29)
[2023-05-21] MEDS: methaDONE 240 MG, methaDONE 30 MG PO SCH (05:20)
[2023-05-21] MEDS ORDERED: methaDONE HCL 10 MG TABLET PO SCH (06:00)
[2023-05-21] MEDS: SILVER SULFADIAZINE 1% TOP CREAM 50 GM JAR TP SCH ×2 (10:12→22:29)
[2023-05-21] MEDS: PRENATAL VITAMINS W/ FOLIC ACID TABLET (FP) PO SCH (10:12)
[2023-05-21] MEDS ORDERED: PNEUMOC 20-VAL CONJ-DIP CRM/PF 0.5 ML SYRINGE IM ONE (12:00)
[2023-05-21] MEDS: chlordiazePOXIDE HCL 25 MG CAPSULE PO PRN (14:39)
[2023-05-21] MEDS: QUEtiapine FUMARATE 100 MG TABLET (FP) PO SCH (22:29)
[2023-05-21] MEDS: THIAMINE HCL 100 MG TABLET (FP) PO SCH (22:29)
[2023-05-21] MEDS: MELATONIN 5 MG TABLETS PO SCH (22:29)
[2023-05-21] MEDS: IBUPROFEN 400 MG TABLET (FP) PO PRN (22:32)
[2023-05-22] MEDS: methaDONE 240 MG, methaDONE 30 MG PO SCH (05:24)
[2023-05-22] MEDS: chlordiazePOXIDE HCL 25 MG CAPSULE PO SCH ×4 (05:24→22:25)
[2023-05-22] MEDS: CLINDAMYCIN HCL 150 MG CAPSULE (FP) PO SCH ×3 (05:25→22:25)
[2023-05-22] MEDS: PRENATAL VITAMINS W/ FOLIC ACID TABLET (FP) PO SCH (10:09)
[2023-05-22] MEDS: SILVER SULFADIAZINE 1% TOP CREAM 50 GM JAR TP SCH ×2 (10:09→22:25)
[2023-05-22] MEDS: MELATONIN 5 MG TABLETS PO SCH (22:25)
[2023-05-22] MEDS: THIAMINE HCL 100 MG TABLET (FP) PO SCH (22:25)
[2023-05-22] MEDS: QUEtiapine FUMARATE 100 MG TABLET (FP) PO SCH (22:25)
[2023-05-23] MEDS ORDERED: chlordiazePOXIDE HCL 10 MG CAPSULE PO PRN
[2023-05-23] MEDS: methaDONE 240 MG, methaDONE 30 MG PO SCH (05:27)
[2023-05-23] MEDS: chlordiazePOXIDE HCL 10 MG CAPSULE PO SCH ×4 (05:27→22:29)
[2023-05-23] MEDS: CLINDAMYCIN HCL 150 MG CAPSULE (FP) PO SCH ×3 (05:27→22:29)
[2023-05-23] MEDS: SILVER SULFADIAZINE 1% TOP CREAM 50 GM JAR TP SCH ×2 (10:36→22:30)
[2023-05-23] MEDS: PRENATAL VITAMINS W/ FOLIC ACID TABLET (FP) PO SCH (10:36)
[2023-05-23] MEDS: IBUPROFEN 600 MG TABLET (FP) PO PRN (17:22)
[2023-05-23] MEDS: MELATONIN 5 MG TABLETS PO SCH (22:29)
[2023-05-23] MEDS: QUEtiapine FUMARATE 100 MG TABLET (FP) PO SCH (22:30)
[2023-05-23] MEDS: THIAMINE HCL 100 MG TABLET (FP) PO SCH (22:30)
[2023-05-24] MEDS: CLINDAMYCIN HCL 150 MG CAPSULE (FP) PO SCH ×3 (05:38→22:04)
[2023-05-24] MEDS: chlordiazePOXIDE HCL 10 MG CAPSULE PO SCH ×2 (05:38→17:13)
[2023-05-24] MEDS: IBUPROFEN 600 MG TABLET (FP) PO PRN (05:39)
[2023-05-24] MEDS: methaDONE 240 MG, methaDONE 30 MG PO SCH (05:40)
[2023-05-24] MEDS: SILVER SULFADIAZINE 1% TOP CREAM 50 GM JAR TP SCH ×2 (10:33→22:06)
[2023-05-24] MEDS: PRENATAL VITAMINS W/ FOLIC ACID TABLET (FP) PO SCH (10:33)
[2023-05-24] MEDS: QUEtiapine FUMARATE 100 MG TABLET (FP) PO SCH (22:04)
[2023-05-24] MEDS: MELATONIN 5 MG TABLETS PO SCH (22:04)
[2023-05-24] MEDS: THIAMINE HCL 100 MG TABLET (FP) PO SCH (22:04)
[2023-05-25] MEDS ORDERED: chlordiazePOXIDE HCL 10 MG CAPSULE PO ONE (05:00)
[2023-05-25] MEDS: methaDONE 240 MG, methaDONE 30 MG PO SCH (05:15)
[2023-05-25] MEDS: CLINDAMYCIN HCL 150 MG CAPSULE (FP) PO SCH (05:18)
[2023-05-25] MEDS: PRENATAL VITAMINS W/ FOLIC ACID TABLET (FP) PO SCH (10:19)
[2023-05-25] MEDS: SILVER SULFADIAZINE 1% TOP CREAM 50 GM JAR TP SCH (10:19)
[2023-05-25] MEDS: IBUPROFEN 400 MG TABLET (FP) PO PRN (10:20)
[2023-05-25 13:33] VITALS: BP 115/64; PULSE 84; RESP 18; TEMP 97.5
== END 2023-05-25 14:16 | disposition other institution (70) | DRG 773 ==
LOC: YASAS 14:42 → Y3N 18:12
PROVIDERS: ADMIT Allergy & Immunology; ATTEND Surgery
PROC: HZ2ZZZZ Detoxification Services for Substance Abuse Treatment (ICD-10-PCS; principal; 2023-05-19)
DX: F10.230 Alcohol dependence with withdrawal, uncomplicated (principal); F11.20 Opioid dependence, uncomplicated; F17.210 Nicotine dependence, cigarettes, uncomplicated; L03.116 Cellulitis of left lower limb; L97.929 Non-pressure chronic ulcer of unspecified part of left lower leg with unspecified severity; I73.9 Peripheral vascular disease, unspecified; Z99.89 Dependence on other enabling machines and devices
CPT/HCPCS: 36415; 80053; 85027; 86780; 87635

== ENCOUNTER 2023-05-25 14:19 | Inpatient (IN) | payer OTHER ==
[2023-05-25] MEDS ORDERED: NALOXONE HCL 0.4 MG/ML VIAL IVPUSH PRN (18:02)
[2023-05-25] MEDS ORDERED: NALOXONE HCL (KLOXXADO) 8 MG SPRAY NS PRN (18:02)
[2023-05-25] MEDS ORDERED: BENZOCAINE/MENTHOL (CHLORASEPTIC ) LOZENGE MM PRN (18:02)
[2023-05-25] MEDS ORDERED: P-EPHED 60MG/TRIPROLIDI 2.5MG TABLET PO PRN (18:02)
[2023-05-25] MEDS ORDERED: POLYETHYLENE GLYCOL (HEALTHYLAX) 3350 17 GM PACKET PO PRN (18:02)
[2023-05-25] MEDS ORDERED: NICOTINE POLACRILEX 2 MG GUM BUC PRN (18:02)
[2023-05-25] MEDS ORDERED: MAG HYDROX/AL HYDROX/SIMETH 30 ML UNIT-DOSE CUP PO PRN (18:02)
[2023-05-25] MEDS ORDERED: LOPERAMIDE HCL 2 MG CAPSULE PO PRN (18:02)
[2023-05-25] MEDS ORDERED: hydrOXYzine PAMOATE 25 MG CAPSULE (FP) PO PRN (18:02)
[2023-05-25] MEDS ORDERED: BENZONATATE 200 MG CAPSULE PO PRN (18:02)
[2023-05-25] MEDS ORDERED: AMMONIUM LACTATE 12% LOTION 225 GM BOTTLE TP PRN (18:02)
[2023-05-25] MEDS ORDERED: MAGNESIUM HYDROX 2400MG/30ML ORAL SUSPENSION 30 ML CUP PO PRN (18:02)
[2023-05-25] MEDS ORDERED: COLLOIDAL OATMEAL 1 BAR EACH TP PRN (18:02)
[2023-05-25] MEDS ORDERED: guaiFENesin 600 MG TABLET.ER (FP) PO PRN (18:02)
[2023-05-25] MEDS ORDERED: IBUPROFEN 400 MG TABLET (FP) PO PRN (18:02)
[2023-05-25] MEDS: MELATONIN 5 MG TABLETS PO SCH (21:22)
[2023-05-25] MEDS: THIAMINE HCL 100 MG TABLET (FP) PO SCH (21:22)
[2023-05-25] MEDS ORDERED: QUEtiapine FUMARATE 100 MG TABLET (FP) PO ONE (23:35)
[2023-05-26] MEDS ORDERED: methaDONE HCL 10 MG TABLET PO SCH (08:00)
[2023-05-26] MEDS: PRENATAL VITAMINS W/ FOLIC ACID TABLET (FP) PO SCH (09:51)
[2023-05-26] MEDS: methaDONE 240 MG, methaDONE 30 MG PO SCH (09:52)
[2023-05-26] MEDS: FERROUS SO4 325 MG TABLET (FP) PO SCH (17:43)
[2023-05-26] MEDS: SILVER SULFADIAZINE 1% TOP CREAM 50 GM JAR TP SCH ×2 (18:07→21:05)
[2023-05-26] MEDS: MELATONIN 5 MG TABLETS PO SCH (21:05)
[2023-05-26] MEDS: THIAMINE HCL 100 MG TABLET (FP) PO SCH (21:05)
[2023-05-26] MEDS: CLINDAMYCIN HCL 150 MG CAPSULE (FP) PO SCH (21:07)
[2023-05-26] MEDS: METHOCARBAMOL 500 MG TABLET PO PRN (21:07)
[2023-05-26] MEDS: QUEtiapine FUMARATE 100 MG TABLET (FP) PO SCH (21:08)
[2023-05-27] MEDS: methaDONE 240 MG, methaDONE 30 MG PO SCH (06:14)
[2023-05-27] MEDS: CLINDAMYCIN HCL 150 MG CAPSULE (FP) PO SCH ×3 (06:14→21:31)
[2023-05-27] MEDS: FERROUS SO4 325 MG TABLET (FP) PO SCH (07:32)
[2023-05-27] MEDS: PRENATAL VITAMINS W/ FOLIC ACID TABLET (FP) PO SCH (10:02)
[2023-05-27] MEDS: SILVER SULFADIAZINE 1% TOP CREAM 50 GM JAR TP SCH ×2 (10:02→22:51)
[2023-05-27] MEDS: IBUPROFEN 600 MG TABLET (FP) PO PRN ×2 (10:03→21:32)
[2023-05-27 11:34] LABS: BASO % 0.4 % (0-2.0); EOS % 3.9 % (0-4.5); HEMATOCRIT 29.1 % (35.4-49); HEMOGLOBIN 9.2 GM/dL (11.7-16.9); LYMPH % 24.5 % (8-40); MCH 27.6 pg (25.7-33.7); MCHC 31.7 g/dl (32.0-35.9); MEAN CELL VOLUME 87.2 fl (80-96); MEAN PLT VOLUME 8.1 fl (7.5-11.1); MONO % 9.7 % (3.8-10.2); NEUT % 61.5 % (42.8-82.8); PLATELET COUNT 278 10^3/uL (134-434); RBC 3.34 M/mm3 (4.00-5.60); RDW 15.6 % (11.9-15.9); WHITE BLOOD COUNT 5.6 K/mm3 (4.0-10.0)
[2023-05-27] MEDS: AMINO ACIDS/PROTEIN HYDROLYS 30 ML LIQUID.PKT PO SCH (16:23)
[2023-05-27] MEDS: CHOLECALCIFEROL (VIT D3) 400 UNIT (10 MCG) TABLET PO SCH (16:23)
[2023-05-27] MEDS: QUEtiapine FUMARATE 100 MG TABLET (FP) PO SCH (21:31)
[2023-05-27] MEDS: THIAMINE HCL 100 MG TABLET (FP) PO SCH (21:31)
[2023-05-27] MEDS: MELATONIN 5 MG TABLETS PO SCH (21:31)
[2023-05-28] MEDS: methaDONE 240 MG, methaDONE 30 MG PO SCH (06:06)
[2023-05-28] MEDS: CLINDAMYCIN HCL 150 MG CAPSULE (FP) PO SCH ×3 (06:07→21:19)
[2023-05-28] MEDS: AMINO ACIDS/PROTEIN HYDROLYS 30 ML LIQUID.PKT PO SCH (07:22)
[2023-05-28] MEDS: FERROUS SO4 325 MG TABLET (FP) PO SCH (07:22)
[2023-05-28] MEDS: PRENATAL VITAMINS W/ FOLIC ACID TABLET (FP) PO SCH (09:55)
[2023-05-28] MEDS: CHOLECALCIFEROL (VIT D3) 400 UNIT (10 MCG) TABLET PO SCH (09:56)
[2023-05-28] MEDS: SILVER SULFADIAZINE 1% TOP CREAM 50 GM JAR TP SCH ×2 (09:56→21:19)
[2023-05-28] MEDS: METHOCARBAMOL 500 MG TABLET PO PRN (17:39)
[2023-05-28] MEDS: MELATONIN 5 MG TABLETS PO SCH (21:19)
[2023-05-28] MEDS: QUEtiapine FUMARATE 100 MG TABLET (FP) PO SCH (21:19)
[2023-05-28] MEDS: THIAMINE HCL 100 MG TABLET (FP) PO SCH (21:19)
[2023-05-29] MEDS: methaDONE 240 MG, methaDONE 30 MG PO SCH (06:34)
[2023-05-29] MEDS: CLINDAMYCIN HCL 150 MG CAPSULE (FP) PO SCH ×3 (06:35→21:03)
[2023-05-29] MEDS: FERROUS SO4 325 MG TABLET (FP) PO SCH (07:23)
[2023-05-29] MEDS: AMINO ACIDS/PROTEIN HYDROLYS 30 ML LIQUID.PKT PO SCH (07:23)
[2023-05-29] MEDS: CHOLECALCIFEROL (VIT D3) 400 UNIT (10 MCG) TABLET PO SCH (09:59)
[2023-05-29] MEDS: PRENATAL VITAMINS W/ FOLIC ACID TABLET (FP) PO SCH (09:59)
[2023-05-29] MEDS: SILVER SULFADIAZINE 1% TOP CREAM 50 GM JAR TP SCH ×2 (09:59→21:03)
[2023-05-29] MEDS: MELATONIN 5 MG TABLETS PO SCH (21:03)
[2023-05-29] MEDS: THIAMINE HCL 100 MG TABLET (FP) PO SCH (21:03)
[2023-05-29] MEDS: QUEtiapine FUMARATE 100 MG TABLET (FP) PO SCH (21:04)
[2023-05-30] MEDS: methaDONE 240 MG, methaDONE 30 MG PO SCH (06:25)
[2023-05-30] MEDS: CLINDAMYCIN HCL 150 MG CAPSULE (FP) PO SCH ×3 (06:25→21:13)
[2023-05-30] MEDS: FERROUS SO4 325 MG TABLET (FP) PO SCH (06:59)
[2023-05-30] MEDS: AMINO ACIDS/PROTEIN HYDROLYS 30 ML LIQUID.PKT PO SCH (07:00)
[2023-05-30] MEDS: SILVER SULFADIAZINE 1% TOP CREAM 50 GM JAR TP SCH ×2 (09:37→21:41)
[2023-05-30] MEDS: PRENATAL VITAMINS W/ FOLIC ACID TABLET (FP) PO SCH (09:37)
[2023-05-30] MEDS: CHOLECALCIFEROL (VIT D3) 400 UNIT (10 MCG) TABLET PO SCH (09:37)
[2023-05-30] MEDS: METHOCARBAMOL 500 MG TABLET PO PRN (17:12)
[2023-05-30] MEDS: QUEtiapine FUMARATE 100 MG TABLET (FP) PO SCH (21:12)
[2023-05-30] MEDS: THIAMINE HCL 100 MG TABLET (FP) PO SCH (21:12)
[2023-05-30] MEDS: MELATONIN 5 MG TABLETS PO SCH (21:12)
[2023-05-30] MEDS: IBUPROFEN 600 MG TABLET (FP) PO PRN (21:13)
[2023-05-31] MEDS: methaDONE 240 MG, methaDONE 30 MG PO SCH (06:06)
[2023-05-31] MEDS: CLINDAMYCIN HCL 150 MG CAPSULE (FP) PO SCH ×3 (06:08→21:30)
[2023-05-31] MEDS: FERROUS SO4 325 MG TABLET (FP) PO SCH (07:13)
[2023-05-31] MEDS: AMINO ACIDS/PROTEIN HYDROLYS 30 ML LIQUID.PKT PO SCH (07:13)
[2023-05-31] MEDS: PRENATAL VITAMINS W/ FOLIC ACID TABLET (FP) PO SCH (09:43)
[2023-05-31] MEDS: CHOLECALCIFEROL (VIT D3) 400 UNIT (10 MCG) TABLET PO SCH (09:43)
[2023-05-31] MEDS: SILVER SULFADIAZINE 1% TOP CREAM 50 GM JAR TP SCH ×2 (09:44→21:47)
[2023-05-31] MEDS: METHOCARBAMOL 500 MG TABLET PO PRN (16:07)
[2023-05-31] MEDS: IBUPROFEN 600 MG TABLET (FP) PO PRN ×2 (16:08→21:31)
[2023-05-31] MEDS: MELATONIN 5 MG TABLETS PO SCH (21:30)
[2023-05-31] MEDS: THIAMINE HCL 100 MG TABLET (FP) PO SCH (21:30)
[2023-05-31] MEDS: QUEtiapine FUMARATE 100 MG TABLET (FP) PO SCH (21:30)
[2023-06-01] MEDS: methaDONE 240 MG, methaDONE 30 MG PO SCH (06:12)
[2023-06-01] MEDS: CLINDAMYCIN HCL 150 MG CAPSULE (FP) PO SCH ×3 (06:12→21:16)
[2023-06-01] MEDS: FERROUS SO4 325 MG TABLET (FP) PO SCH (07:10)
[2023-06-01] MEDS: AMINO ACIDS/PROTEIN HYDROLYS 30 ML LIQUID.PKT PO SCH (07:11)
[2023-06-01] MEDS: PRENATAL VITAMINS W/ FOLIC ACID TABLET (FP) PO SCH (11:08)
[2023-06-01] MEDS: CHOLECALCIFEROL (VIT D3) 400 UNIT (10 MCG) TABLET PO SCH (11:09)
[2023-06-01] MEDS: SILVER SULFADIAZINE 1% TOP CREAM 50 GM JAR TP SCH ×2 (11:10→21:16)
[2023-06-01] MEDS: MELATONIN 5 MG TABLETS PO SCH (21:16)
[2023-06-01] MEDS: QUEtiapine FUMARATE 100 MG TABLET (FP) PO SCH (21:16)
[2023-06-01] MEDS: THIAMINE HCL 100 MG TABLET (FP) PO SCH (21:16)
[2023-06-02] MEDS: CLINDAMYCIN HCL 150 MG CAPSULE (FP) PO SCH ×2 (06:04→13:21)
[2023-06-02] MEDS: methaDONE 240 MG, methaDONE 30 MG PO SCH (06:05)
[2023-06-02] MEDS: ACETAMINOPHEN 325 MG TABLET (FP) PO PRN ×2 (06:09→21:13)
[2023-06-02] MEDS: AMINO ACIDS/PROTEIN HYDROLYS 30 ML LIQUID.PKT PO SCH (07:03)
[2023-06-02] MEDS: FERROUS SO4 325 MG TABLET (FP) PO SCH (07:03)
[2023-06-02] MEDS: CHOLECALCIFEROL (VIT D3) 400 UNIT (10 MCG) TABLET PO SCH (10:00)
[2023-06-02] MEDS: PRENATAL VITAMINS W/ FOLIC ACID TABLET (FP) PO SCH (10:00)
[2023-06-02] MEDS: SILVER SULFADIAZINE 1% TOP CREAM 50 GM JAR TP SCH ×2 (10:00→21:32)
[2023-06-02] MEDS: MELATONIN 5 MG TABLETS PO SCH (21:12)
[2023-06-02] MEDS: QUEtiapine FUMARATE 100 MG TABLET (FP) PO SCH (21:13)
[2023-06-02] MEDS: THIAMINE HCL 100 MG TABLET (FP) PO SCH (21:13)
[2023-06-03] MEDS: methaDONE 240 MG, methaDONE 30 MG PO SCH (06:11)
[2023-06-03] MEDS: FERROUS SO4 325 MG TABLET (FP) PO SCH (07:09)
[2023-06-03] MEDS: AMINO ACIDS/PROTEIN HYDROLYS 30 ML LIQUID.PKT PO SCH (07:09)
[2023-06-03] MEDS: ACETAMINOPHEN 325 MG TABLET (FP) PO PRN ×2 (07:44→21:15)
[2023-06-03] MEDS: SILVER SULFADIAZINE 1% TOP CREAM 50 GM JAR TP SCH ×2 (09:43→21:16)
[2023-06-03] MEDS: CHOLECALCIFEROL (VIT D3) 400 UNIT (10 MCG) TABLET PO SCH (09:43)
[2023-06-03] MEDS: PRENATAL VITAMINS W/ FOLIC ACID TABLET (FP) PO SCH (09:43)
[2023-06-03] MEDS: MELATONIN 5 MG TABLETS PO SCH (21:15)
[2023-06-03] MEDS: THIAMINE HCL 100 MG TABLET (FP) PO SCH (21:15)
[2023-06-03] MEDS: QUEtiapine FUMARATE 100 MG TABLET (FP) PO SCH (21:15)
[2023-06-04] MEDS: methaDONE 240 MG, methaDONE 30 MG PO SCH (06:08)
[2023-06-04] MEDS: AMINO ACIDS/PROTEIN HYDROLYS 30 ML LIQUID.PKT PO SCH (07:07)
[2023-06-04] MEDS: FERROUS SO4 325 MG TABLET (FP) PO SCH (07:07)
[2023-06-04] MEDS: ACETAMINOPHEN 325 MG TABLET (FP) PO PRN ×2 (07:07→16:34)
[2023-06-04] MEDS: CHOLECALCIFEROL (VIT D3) 400 UNIT (10 MCG) TABLET PO SCH (09:42)
[2023-06-04] MEDS: PRENATAL VITAMINS W/ FOLIC ACID TABLET (FP) PO SCH (09:42)
[2023-06-04] MEDS: SILVER SULFADIAZINE 1% TOP CREAM 50 GM JAR TP SCH ×2 (09:42→21:10)
[2023-06-04] MEDS: QUEtiapine FUMARATE 100 MG TABLET (FP) PO SCH (21:10)
[2023-06-04] MEDS: THIAMINE HCL 100 MG TABLET (FP) PO SCH (21:10)
[2023-06-04] MEDS: MELATONIN 5 MG TABLETS PO SCH (21:10)
[2023-06-05] MEDS: methaDONE 240 MG, methaDONE 30 MG PO SCH (06:12)
[2023-06-05 06:41] VITALS: RESP 18
[2023-06-05] MEDS: FERROUS SO4 325 MG TABLET (FP) PO SCH (07:25)
[2023-06-05] MEDS: AMINO ACIDS/PROTEIN HYDROLYS 30 ML LIQUID.PKT PO SCH (07:26)
[2023-06-05] MEDS: PRENATAL VITAMINS W/ FOLIC ACID TABLET (FP) PO SCH (09:50)
[2023-06-05] MEDS: CHOLECALCIFEROL (VIT D3) 400 UNIT (10 MCG) TABLET PO SCH (09:50)
[2023-06-05] MEDS: ACETAMINOPHEN 325 MG TABLET (FP) PO PRN (09:51)
[2023-06-05] MEDS: SILVER SULFADIAZINE 1% TOP CREAM 50 GM JAR TP SCH ×2 (09:52→21:13)
[2023-06-05] MEDS: THIAMINE HCL 100 MG TABLET (FP) PO SCH (21:13)
[2023-06-05] MEDS: QUEtiapine FUMARATE 100 MG TABLET (FP) PO SCH (21:13)
[2023-06-05] MEDS: MELATONIN 5 MG TABLETS PO SCH (21:13)
[2023-06-06] MEDS: methaDONE 240 MG, methaDONE 30 MG PO SCH (06:15)
[2023-06-06] MEDS: AMINO ACIDS/PROTEIN HYDROLYS 30 ML LIQUID.PKT PO SCH (07:27)
[2023-06-06] MEDS: FERROUS SO4 325 MG TABLET (FP) PO SCH (07:27)
[2023-06-06] MEDS: ACETAMINOPHEN 325 MG TABLET (FP) PO PRN ×2 (07:46→21:12)
[2023-06-06] MEDS: CHOLECALCIFEROL (VIT D3) 400 UNIT (10 MCG) TABLET PO SCH (09:52)
[2023-06-06] MEDS: SILVER SULFADIAZINE 1% TOP CREAM 50 GM JAR TP SCH ×2 (09:52→21:12)
[2023-06-06] MEDS: PRENATAL VITAMINS W/ FOLIC ACID TABLET (FP) PO SCH (09:52)
[2023-06-06] MEDS: THIAMINE HCL 100 MG TABLET (FP) PO SCH (21:12)
[2023-06-06] MEDS: MELATONIN 5 MG TABLETS PO SCH (21:13)
[2023-06-06] MEDS: QUEtiapine FUMARATE 100 MG TABLET (FP) PO SCH (21:14)
[2023-06-07] MEDS: methaDONE 240 MG, methaDONE 30 MG PO SCH (05:36)
[2023-06-07] MEDS: ACETAMINOPHEN 325 MG TABLET (FP) PO PRN (07:10)
[2023-06-07] MEDS: AMINO ACIDS/PROTEIN HYDROLYS 30 ML LIQUID.PKT PO SCH (07:10)
[2023-06-07] MEDS: FERROUS SO4 325 MG TABLET (FP) PO SCH (07:10)
[2023-06-07] MEDS: SILVER SULFADIAZINE 1% TOP CREAM 50 GM JAR TP SCH ×2 (09:49→21:01)
[2023-06-07] MEDS: CHOLECALCIFEROL (VIT D3) 400 UNIT (10 MCG) TABLET PO SCH (09:49)
[2023-06-07] MEDS: PRENATAL VITAMINS W/ FOLIC ACID TABLET (FP) PO SCH (09:49)
[2023-06-07] MEDS: MELATONIN 5 MG TABLETS PO SCH (21:01)
[2023-06-07] MEDS: QUEtiapine FUMARATE 100 MG TABLET (FP) PO SCH (21:01)
[2023-06-07] MEDS: THIAMINE HCL 100 MG TABLET (FP) PO SCH (21:01)
[2023-06-08] MEDS: methaDONE 240 MG, methaDONE 30 MG PO SCH (05:54)
[2023-06-08 06:51] VITALS: TEMP 97.6
[2023-06-08] MEDS: FERROUS SO4 325 MG TABLET (FP) PO SCH (07:00)
[2023-06-08] MEDS: AMINO ACIDS/PROTEIN HYDROLYS 30 ML LIQUID.PKT PO SCH (07:00)
[2023-06-08 09:05] VITALS: BP 114/70; PULSE 84
[2023-06-08] MEDS: PRENATAL VITAMINS W/ FOLIC ACID TABLET (FP) PO SCH (09:08)
[2023-06-08] MEDS: SILVER SULFADIAZINE 1% TOP CREAM 50 GM JAR TP SCH (09:08)
[2023-06-08] MEDS: CHOLECALCIFEROL (VIT D3) 400 UNIT (10 MCG) TABLET PO SCH (09:09)
== END 2023-06-08 09:52 | disposition home or self-care (01) | DRG 772 ==
LOC: YASAS 14:19 → Y5N 14:20
PROVIDERS: ADMIT Allergy & Immunology; ATTEND Psychiatry & Neurology Pain Medicine
PROC: HZ42ZZZ Group Counseling for Substance Abuse Treatment, Cognitive-Behavioral (ICD-10-PCS; principal; 2023-05-25)
DX: F10.20 Alcohol dependence, uncomplicated (principal); F17.210 Nicotine dependence, cigarettes, uncomplicated; D64.9 Anemia, unspecified; E55.9 Vitamin D deficiency, unspecified; L97.929 Non-pressure chronic ulcer of unspecified part of left lower leg with unspecified severity; M17.0 Bilateral primary osteoarthritis of knee; Z99.89 Dependence on other enabling machines and devices; Z91.011 Allergy to milk products
CPT/HCPCS: 36415; 82306; 83735; 85025; 93005; 93010

== ENCOUNTER 2023-07-21 15:26 | Inpatient (IN) | payer OTHER ==
[2023-07-21 17:31] VITALS: BMI 31.9
[2023-07-21] MEDS ORDERED: ONDANSETRON *ODT* 4 MG TABLET SL PRN (18:30)
[2023-07-21] MEDS ORDERED: BENZONATATE 200 MG CAPSULE PO PRN (18:30)
[2023-07-21] MEDS ORDERED: POLYETHYLENE GLYCOL (HEALTHYLAX) 3350 17 GM PACKET PO PRN (18:30)
[2023-07-21] MEDS ORDERED: MAGNESIUM HYDROX 2400MG/30ML ORAL SUSPENSION 30 ML CUP PO PRN (18:30)
[2023-07-21] MEDS ORDERED: BISMUTH SUBSALICYLATE 524 MG/30 ML PO PRN (18:30)
[2023-07-21] MEDS ORDERED: IBUPROFEN 600 MG TABLET (FP) PO PRN (18:30)
[2023-07-21] MEDS ORDERED: NALOXONE HCL 0.4 MG/ML VIAL IM PRN (18:30)
[2023-07-21] MEDS ORDERED: MAG HYDROX/AL HYDROX/SIMETH 30 ML UNIT-DOSE CUP PO PRN (18:30)
[2023-07-21] MEDS ORDERED: IBUPROFEN 400 MG TABLET (FP) PO PRN (18:30)
[2023-07-21] MEDS ORDERED: guaiFENesin 600 MG TABLET.ER (FP) PO PRN (18:30)
[2023-07-21] MEDS ORDERED: METOPROLOL TARTRATE 25 MG TABLET (FP) PO ONE ×2 (18:30→22:00)
[2023-07-21] MEDS ORDERED: P-EPHED 60MG/TRIPROLIDI 2.5MG TABLET PO PRN (18:30)
[2023-07-21] MEDS ORDERED: DICYCLOMINE HCL 10 MG CAPSULE PO PRN (18:30)
[2023-07-21] MEDS ORDERED: NICOTINE POLACRILEX 2 MG GUM BUC PRN (18:30)
[2023-07-21] MEDS ORDERED: ACETAMINOPHEN 325 MG TABLET (FP) PO PRN (18:30)
[2023-07-21] MEDS ORDERED: BENZOCAINE/MENTHOL (CHLORASEPTIC ) LOZENGE MM PRN (18:30)
[2023-07-21] MEDS ORDERED: LOPERAMIDE HCL 2 MG CAPSULE PO PRN (18:30)
[2023-07-21] MEDS ORDERED: NALOXONE HCL (KLOXXADO) 8 MG SPRAY NS PRN (18:30)
[2023-07-21] MEDS ORDERED: MELATONIN 5 MG TABLETS PO SCH (22:00)
[2023-07-21] MEDS: METHOCARBAMOL 500 MG TABLET PO PRN (22:38)
[2023-07-21] MEDS: THIAMINE HCL 100 MG TABLET (FP) PO SCH (22:38)
[2023-07-21] MEDS: SILVER SULFADIAZINE 1% TOP CREAM 50 GM JAR TP SCH (22:39)
[2023-07-21] MEDS: hydrOXYzine PAMOATE 25 MG CAPSULE (FP) PO PRN (22:39)
[2023-07-22] MEDS: hydrOXYzine PAMOATE 25 MG CAPSULE (FP) PO PRN ×3 (05:34→22:23)
[2023-07-22] MEDS: methaDONE HCL 40 MG DISPERSABLE TABLET PO SCH (08:03)
[2023-07-22 09:58] LABS: HEMATOCRIT 32.8 % (35.4-49); HEMOGLOBIN 10.8 GM/dL (11.7-16.9); MCH 27.6 pg (25.7-33.7); MEAN CELL VOLUME 83.8 fl (80-96); MEAN PLT VOLUME 7.8 fl (7.5-11.1); PLATELET COUNT 274 10^3/uL (134-434); POTASSIUM 4.3 mmol/L (3.5-5.1); RBC 3.92 M/mm3 (4.00-5.60); RDW 15.2 % (11.9-15.9); WHITE BLOOD COUNT 6.8 K/mm3 (4.0-10.0)
[2023-07-22] MEDS: METHOCARBAMOL 500 MG TABLET PO PRN ×2 (10:02→22:23)
[2023-07-22] MEDS: PRENATAL VITAMINS W/ FOLIC ACID TABLET (FP) PO SCH (10:02)
[2023-07-22 10:04] LABS: CALCIUM 8.7 mg/dL (8.5-10.1)
[2023-07-22 10:05] LABS: ALBUMIN 3.4 g/dl (3.4-5.0); BLOOD UREA NITROGEN 14.2 mg/dL (7-18)
[2023-07-22] MEDS: diazePAM 5 MG TABLET PO SCH ×3 (10:08→22:23)
[2023-07-22 10:09] LABS: BILIRUBIN,TOTAL 0.3 mg/dL (0.2-1)
[2023-07-22] MEDS: SILVER SULFADIAZINE 1% TOP CREAM 50 GM JAR TP SCH ×2 (10:49→22:24)
[2023-07-22 13:31] LABS: HIV INTERPRETATION NEGATIVE (NEGATIVE)
[2023-07-22] MEDS: diazePAM 5 MG TABLET PO PRN (14:33)
[2023-07-22] MEDS: THIAMINE HCL 100 MG TABLET (FP) PO SCH (22:23)
[2023-07-22] MEDS: QUEtiapine FUMARATE 100 MG TABLET (FP) PO SCH (22:24)
[2023-07-23] MEDS: diazePAM 5 MG TABLET PO SCH ×4 (05:22→22:01)
[2023-07-23] MEDS: methaDONE HCL 40 MG DISPERSABLE TABLET PO SCH (05:22)
[2023-07-23] MEDS: SILVER SULFADIAZINE 1% TOP CREAM 50 GM JAR TP SCH ×2 (10:05→22:02)
[2023-07-23] MEDS: PRENATAL VITAMINS W/ FOLIC ACID TABLET (FP) PO SCH (10:05)
[2023-07-23] MEDS: diazePAM 5 MG TABLET PO PRN (14:56)
[2023-07-23] MEDS: THIAMINE HCL 100 MG TABLET (FP) PO SCH (22:01)
[2023-07-23] MEDS: QUEtiapine FUMARATE 100 MG TABLET (FP) PO SCH (22:01)
[2023-07-23] MEDS: METHOCARBAMOL 500 MG TABLET PO PRN (22:04)
[2023-07-24] MEDS: diazePAM 5 MG TABLET PO SCH ×3 (05:53→22:03)
[2023-07-24] MEDS: methaDONE HCL 40 MG DISPERSABLE TABLET PO SCH (05:55)
[2023-07-24] MEDS: METHOCARBAMOL 500 MG TABLET PO PRN ×2 (10:19→17:38)
[2023-07-24] MEDS: hydrOXYzine PAMOATE 25 MG CAPSULE (FP) PO PRN (10:19)
[2023-07-24] MEDS: SILVER SULFADIAZINE 1% TOP CREAM 50 GM JAR TP SCH ×2 (10:19→22:04)
[2023-07-24] MEDS: PRENATAL VITAMINS W/ FOLIC ACID TABLET (FP) PO SCH (10:19)
[2023-07-24] MEDS: NAPROXEN 500 MG TABLET PO PRN (11:02)
[2023-07-24] MEDS: THIAMINE HCL 100 MG TABLET (FP) PO SCH (22:03)
[2023-07-24] MEDS: QUEtiapine FUMARATE 100 MG TABLET (FP) PO SCH (22:03)
[2023-07-25] MEDS: diazePAM 5 MG TABLET PO SCH ×2 (06:15→17:29)
[2023-07-25] MEDS: methaDONE HCL 40 MG DISPERSABLE TABLET PO SCH (06:16)
[2023-07-25] MEDS: PRENATAL VITAMINS W/ FOLIC ACID TABLET (FP) PO SCH (10:03)
[2023-07-25] MEDS: SILVER SULFADIAZINE 1% TOP CREAM 50 GM JAR TP SCH ×2 (10:03→22:54)
[2023-07-25] MEDS: NAPROXEN 500 MG TABLET PO PRN (10:05)
[2023-07-25] MEDS: hydrOXYzine PAMOATE 25 MG CAPSULE (FP) PO PRN (10:05)
[2023-07-25] MEDS: QUEtiapine FUMARATE 100 MG TABLET (FP) PO SCH (22:14)
[2023-07-25] MEDS: THIAMINE HCL 100 MG TABLET (FP) PO SCH (22:14)
[2023-07-26] MEDS: methaDONE HCL 40 MG DISPERSABLE TABLET PO SCH (05:21)
[2023-07-26] MEDS ORDERED: diazePAM 5 MG TABLET PO ONE (06:00)
[2023-07-26] MEDS: PRENATAL VITAMINS W/ FOLIC ACID TABLET (FP) PO SCH (09:35)
[2023-07-26] MEDS: SILVER SULFADIAZINE 1% TOP CREAM 50 GM JAR TP SCH (09:35)
[2023-07-26] MEDS: METHOCARBAMOL 500 MG TABLET PO PRN (09:36)
[2023-07-26 13:02] VITALS: RESP 17
[2023-07-26 16:53] VITALS: BP 123/74; PULSE 88; TEMP 98.2
== END 2023-07-26 17:53 | disposition other institution (70) | DRG 773 ==
LOC: YASAS 15:26 → Y6N 20:14
PROVIDERS: ADMIT Allergy & Immunology; ATTEND Allergy & Immunology
PROC: HZ2ZZZZ Detoxification Services for Substance Abuse Treatment (ICD-10-PCS; principal; 2023-07-21)
DX: F10.230 Alcohol dependence with withdrawal, uncomplicated (principal); F11.20 Opioid dependence, uncomplicated; F17.210 Nicotine dependence, cigarettes, uncomplicated; F25.9 Schizoaffective disorder, unspecified; F19.282 Other psychoactive substance dependence with psychoactive substance-induced sleep disorder; I73.9 Peripheral vascular disease, unspecified; L97.929 Non-pressure chronic ulcer of unspecified part of left lower leg with unspecified severity; M17.0 Bilateral primary osteoarthritis of knee; Z99.89 Dependence on other enabling machines and devices
CPT/HCPCS: 36415; 80053; 83036; 85027; 86780; 87389; 87635; 93005; 93010; Q0162

== ENCOUNTER 2023-07-26 17:57 | Inpatient (IN) | payer OTHER ==
[~2023-07-26 17:57] MED LIST: ACETAMINOPHEN 325 MG TABLET (FP) PO PRN; BENZOCAINE/MENTHOL (CHLORASEPTIC ) LOZENGE MM PRN; BENZONATATE 200 MG CAPSULE PO PRN; COLLOIDAL OATMEAL 1 BAR EACH TP PRN; IBUPROFEN 400 MG TABLET (FP) PO PRN; LOPERAMIDE HCL 2 MG CAPSULE PO PRN; MAG HYDROX/AL HYDROX/SIMETH 30 ML UNIT-DOSE CUP PO PRN; MAGNESIUM HYDROX 2400MG/30ML ORAL SUSPENSION 30 ML CUP PO PRN; METHOCARBAMOL 500 MG TABLET PO PRN; NALOXONE HCL (KLOXXADO) 8 MG SPRAY NS PRN; NALOXONE HCL 0.4 MG/ML VIAL IVPUSH PRN; NICOTINE 7 MG/24 HOURS TOPICAL PATCH TD PRN; NICOTINE POLACRILEX 2 MG GUM BUC PRN; POLYETHYLENE GLYCOL (HEALTHYLAX) 3350 17 GM PACKET PO PRN; guaiFENesin 600 MG TABLET.ER (FP) PO PRN; hydrOXYzine PAMOATE 25 MG CAPSULE (FP) PO PRN
[2023-07-26] MEDS: MELATONIN 5 MG TABLETS PO SCH (21:41)
[2023-07-26] MEDS: THIAMINE HCL 100 MG TABLET (FP) PO SCH (21:41)
[2023-07-26] MEDS: SILVER SULFADIAZINE 1% TOP CREAM 50 GM JAR TP SCH (21:42)
[2023-07-26] MEDS ORDERED: QUEtiapine FUMARATE 100 MG TABLET (FP) PO SCH (22:00)
[2023-07-27] MEDS: methaDONE HCL 40 MG DISPERSABLE TABLET PO SCH (09:07)
[2023-07-27] MEDS: SILVER SULFADIAZINE 1% TOP CREAM 50 GM JAR TP SCH ×2 (09:35→21:04)
[2023-07-27] MEDS: PRENATAL VITAMINS W/ FOLIC ACID TABLET (FP) PO SCH (09:35)
[2023-07-27] MEDS: IBUPROFEN 600 MG TABLET (FP) PO PRN (15:42)
[2023-07-27] MEDS: QUEtiapine FUMARATE 200 MG TABLET PO SCH (21:04)
[2023-07-27] MEDS: THIAMINE HCL 100 MG TABLET (FP) PO SCH (21:04)
[2023-07-27] MEDS: MELATONIN 5 MG TABLETS PO SCH (21:04)
[2023-07-28] MEDS: methaDONE HCL 40 MG DISPERSABLE TABLET PO SCH (06:27)
[2023-07-28] MEDS: SILVER SULFADIAZINE 1% TOP CREAM 50 GM JAR TP SCH ×2 (10:07→21:23)
[2023-07-28] MEDS: IBUPROFEN 600 MG TABLET (FP) PO PRN (10:07)
[2023-07-28] MEDS: PRENATAL VITAMINS W/ FOLIC ACID TABLET (FP) PO SCH (10:07)
[2023-07-28] MEDS: THIAMINE HCL 100 MG TABLET (FP) PO SCH (21:22)
[2023-07-28] MEDS: MELATONIN 5 MG TABLETS PO SCH (21:22)
[2023-07-28] MEDS: QUEtiapine FUMARATE 200 MG TABLET PO SCH (21:23)
[2023-07-29] MEDS: methaDONE HCL 40 MG DISPERSABLE TABLET PO SCH (06:22)
[2023-07-29] MEDS: PRENATAL VITAMINS W/ FOLIC ACID TABLET (FP) PO SCH (09:28)
[2023-07-29] MEDS: SILVER SULFADIAZINE 1% TOP CREAM 50 GM JAR TP SCH ×2 (09:28→21:16)
[2023-07-29] MEDS: AMMONIUM LACTATE 12% LOTION 225 GM BOTTLE TP PRN (12:08)
[2023-07-29] MEDS: IBUPROFEN 600 MG TABLET (FP) PO PRN (16:15)
[2023-07-29] MEDS: QUEtiapine FUMARATE 200 MG TABLET PO SCH (21:16)
[2023-07-29] MEDS: MELATONIN 5 MG TABLETS PO SCH (21:16)
[2023-07-29] MEDS: THIAMINE HCL 100 MG TABLET (FP) PO SCH (21:16)
[2023-07-30] MEDS: methaDONE HCL 40 MG DISPERSABLE TABLET PO SCH (06:44)
[2023-07-30] MEDS: PRENATAL VITAMINS W/ FOLIC ACID TABLET (FP) PO SCH (09:04)
[2023-07-30] MEDS: IBUPROFEN 600 MG TABLET (FP) PO PRN (09:04)
[2023-07-30] MEDS: SILVER SULFADIAZINE 1% TOP CREAM 50 GM JAR TP SCH ×2 (09:05→21:22)
[2023-07-30] MEDS: AMMONIUM LACTATE 12% LOTION 225 GM BOTTLE TP PRN (14:26)
[2023-07-30] MEDS: THIAMINE HCL 100 MG TABLET (FP) PO SCH (21:21)
[2023-07-30] MEDS: MELATONIN 5 MG TABLETS PO SCH (21:21)
[2023-07-30] MEDS: QUEtiapine FUMARATE 200 MG TABLET PO SCH (21:22)
[2023-07-31] MEDS: methaDONE HCL 40 MG DISPERSABLE TABLET PO SCH (06:55)
[2023-07-31] MEDS: PRENATAL VITAMINS W/ FOLIC ACID TABLET (FP) PO SCH (09:45)
[2023-07-31] MEDS: IBUPROFEN 600 MG TABLET (FP) PO PRN (09:45)
[2023-07-31] MEDS: SILVER SULFADIAZINE 1% TOP CREAM 50 GM JAR TP SCH ×2 (09:46→21:32)
[2023-07-31] MEDS: MELATONIN 5 MG TABLETS PO SCH (21:31)
[2023-07-31] MEDS: THIAMINE HCL 100 MG TABLET (FP) PO SCH (21:31)
[2023-07-31] MEDS: QUEtiapine FUMARATE 200 MG TABLET PO SCH (21:31)
[2023-08-01] MEDS: methaDONE HCL 40 MG DISPERSABLE TABLET PO SCH (06:30)
[2023-08-01] MEDS: IBUPROFEN 600 MG TABLET (FP) PO PRN (06:31)
[2023-08-01] MEDS: PRENATAL VITAMINS W/ FOLIC ACID TABLET (FP) PO SCH (10:22)
[2023-08-01] MEDS: SILVER SULFADIAZINE 1% TOP CREAM 50 GM JAR TP SCH ×2 (10:22→21:41)
[2023-08-01] MEDS: MELATONIN 5 MG TABLETS PO SCH (21:40)
[2023-08-01] MEDS: QUEtiapine FUMARATE 200 MG TABLET PO SCH (21:40)
[2023-08-01] MEDS: THIAMINE HCL 100 MG TABLET (FP) PO SCH (21:40)
[2023-08-02] MEDS: methaDONE HCL 40 MG DISPERSABLE TABLET PO SCH (05:51)
[2023-08-02] MEDS: PRENATAL VITAMINS W/ FOLIC ACID TABLET (FP) PO SCH (10:13)
[2023-08-02] MEDS: IBUPROFEN 600 MG TABLET (FP) PO PRN (10:14)
[2023-08-02] MEDS: SILVER SULFADIAZINE 1% TOP CREAM 50 GM JAR TP SCH ×2 (10:15→21:45)
[2023-08-02] MEDS: THIAMINE HCL 100 MG TABLET (FP) PO SCH (21:24)
[2023-08-02] MEDS: MELATONIN 5 MG TABLETS PO SCH (21:24)
[2023-08-02] MEDS: QUEtiapine FUMARATE 200 MG TABLET PO SCH (21:24)
[2023-08-03] MEDS ORDERED: methaDONE HCL 40 MG DISPERSABLE TABLET PO SCH (06:00)
[2023-08-03 07:12] VITALS: TEMP 97.7
[2023-08-03 09:09] VITALS: BP 115/65; PULSE 92; RESP 17
[2023-08-03] MEDS: PRENATAL VITAMINS W/ FOLIC ACID TABLET (FP) PO SCH (09:49)
[2023-08-03] MEDS: SILVER SULFADIAZINE 1% TOP CREAM 50 GM JAR TP SCH (09:49)
== END 2023-08-03 23:15 | disposition short-term general hospital (02) | DRG 772 ==
LOC: YASAS 17:57 → Y3W 18:04
PROVIDERS: ADMIT Allergy & Immunology; ATTEND Psychiatry & Neurology Pain Medicine
PROC: HZ42ZZZ Group Counseling for Substance Abuse Treatment, Cognitive-Behavioral (ICD-10-PCS; principal; 2023-07-26)
DX: F10.20 Alcohol dependence, uncomplicated (principal); F17.210 Nicotine dependence, cigarettes, uncomplicated; L97.928 Non-pressure chronic ulcer of unspecified part of left lower leg with other specified severity; L03.116 Cellulitis of left lower limb; R26.89 Other abnormalities of gait and mobility
CPT/HCPCS: 36415; 86803

== ENCOUNTER 2023-08-03 13:07 | Inpatient (IN) | payer OTHER ==
[2023-08-03 15:22] LABS: BASO % 0.1 % (0-2.0); EOS % 2.9 % (0-4.5); HEMOGLOBIN 8.8 GM/dL (11.7-16.9); LYMPH % 17.5 % (8-40); MCH 27.2 pg (25.7-33.7); MCHC 32.7 g/dl (32.0-35.9); MEAN CELL VOLUME 83.3 fl (80-96); MEAN PLT VOLUME 7.4 fl (7.5-11.1); MONO % 9.9 % (3.8-10.2); NEUT % 69.6 % (42.8-82.8); PLATELET COUNT 264 10^3/uL (134-434); RBC 3.24 M/mm3 (4.00-5.60); RDW 15.4 % (11.9-15.9); WHITE BLOOD COUNT 5.9 K/mm3 (4.0-10.0)
[2023-08-03 15:50] LABS: POTASSIUM 4.3 mmol/L (3.5-5.1)
[2023-08-03 15:52] LABS: CALCIUM 8.3 mg/dL (8.5-10.1)
[2023-08-03 15:56] LABS: CREATININE 0.8 mg/dL (0.55-1.3)
[2023-08-03 15:57] LABS: BILIRUBIN,TOTAL 0.2 mg/dL (0.2-1); TOT PROT 7.3 g/dl (6.4-8.2)
[2023-08-03] MEDS ORDERED: DALBAVANCIN HCL 1,500 MG in DEXTROSE 5%-WATER - 500 ML IVPB ONE (18:36)
[2023-08-03] MEDS ORDERED: PIPERACILLIN/TAZOB 3.375 GM 3.375 GM in DEXTROSE 5%-WATER - 50 ML IVPB ONE (18:48)
[2023-08-03] MEDS ORDERED: VANCOMYCIN 1,000 MG in DEXTROSE 5%-WATER - 250 ML IVPB ONE (18:48)
[2023-08-03] MEDS ORDERED: PIPERACILLIN/TAZOB 3.375 GM 3.375 GM/50 ML BAG IVPB ONE (19:03)
[2023-08-03] MEDS ORDERED: VANCOMYCIN 1 GRAM (PRE-DOCKED) 1,000 MG/250 ML BAG IVPB ONE (19:13)
[2023-08-03] MEDS ORDERED: QUEtiapine FUMARATE 100 MG TABLET (FP) PO SCH (22:00)
[2023-08-03] MEDS ORDERED: QUEtiapine FUMARATE 100 MG TABLET (FP) ONE (23:04)
[2023-08-03] MEDS ORDERED: SILVER SULFADIAZINE 1% TOP CREAM 50 GM JAR TP ONE (23:04)
[2023-08-03] MEDS: SILVER SULFADIAZINE 1% TOP CREAM 50 GM JAR TP SCH (23:29)
[2023-08-04] MEDS: PIPERACILLIN/TAZOB 3.375 GM 3.375 GM in DEXTROSE 5%-WATER - 50 ML IVPB SCH ×5 (03:48→15:58)
[2023-08-04] MEDS ORDERED: PIPERACILLIN/TAZOB 3.375 GM 3.375 GM/50 ML BAG IVPB ONE (03:49)
[2023-08-04] MEDS ORDERED: methaDONE HCL 40 MG DISPERSABLE TABLET ONE (05:55)
[2023-08-04] MEDS: methaDONE HCL 40 MG DISPERSABLE TABLET PO SCH (06:04)
[2023-08-04 08:11] LABS: CALCIUM 8.5 mg/dL (8.5-10.1)
[2023-08-04 08:15] LABS: CREATININE 0.9 mg/dL (0.55-1.3)
[2023-08-04 08:16] LABS: BILIRUBIN,TOTAL 0.2 mg/dL (0.2-1); TOT PROT 7.9 g/dl (6.4-8.2)
[2023-08-04 08:23] LABS: RETICULOCYTES 1.35 % (0.5-1.5)
[2023-08-04 08:29] LABS: BASO % 0.1 % (0-2.0); EOS % 3.8 % (0-4.5); HEMATOCRIT 29.7 % (35.4-49); HEMOGLOBIN 9.6 GM/dL (11.7-16.9); LYMPH % 27.6 % (8-40); MCH 27.4 pg (25.7-33.7); MCHC 32.2 g/dl (32.0-35.9); MEAN PLT VOLUME 7.9 fl (7.5-11.1); MONO % 9.6 % (3.8-10.2); NEUT % 58.9 % (42.8-82.8); PLATELET COUNT 321 10^3/uL (134-434); RDW 15.4 % (11.9-15.9); WHITE BLOOD COUNT 5.5 K/mm3 (4.0-10.0)
[2023-08-04] MEDS: ENOXAPARIN NA (PORCINE) 40 MG/0.4 ML DISP.SYRIN SQ SCH (11:43)
[2023-08-04 13:25] VITALS: BMI 35.9
[2023-08-04] MEDS ORDERED: LORazepam 2 MG TABLET PO PRN (14:52)
[2023-08-04] MEDS ORDERED: ACETAMINOPHEN 325 MG TABLET (FP) PO ONE (14:53)
[2023-08-04] MEDS: SILVER SULFADIAZINE 1% TOP CREAM 50 GM JAR TP SCH ×2 (15:13→22:30)
[2023-08-04] MEDS: THIAMINE HCL 100 MG TABLET (FP) PO SCH (15:17)
[2023-08-04] MEDS: CEFAZOLIN SODIUM 2 GM in DEXTROSE 5%-WATER 100 ML IVPB SCH (17:03)
[2023-08-04] MEDS: QUEtiapine FUMARATE 200 MG TABLET PO SCH (21:33)
[2023-08-04] MEDS ORDERED: QUEtiapine FUMARATE 100 MG TABLET (FP) PO SCH (22:00)
[2023-08-05] MEDS: CEFAZOLIN SODIUM 2 GM in DEXTROSE 5%-WATER 100 ML IVPB SCH ×2 (01:46→09:31)
[2023-08-05] MEDS: methaDONE HCL 40 MG DISPERSABLE TABLET PO SCH (06:17)
[2023-08-05] MEDS: FOLIC ACID 1 MG TABLET (FP) PO SCH (09:31)
[2023-08-05] MEDS: THIAMINE HCL 100 MG TABLET (FP) PO SCH (09:31)
[2023-08-05] MEDS: ENOXAPARIN NA (PORCINE) 40 MG/0.4 ML DISP.SYRIN SQ SCH (09:31)
[2023-08-05] MEDS ORDERED: NALOXONE HCL 0.4 MG/ML VIAL IVPUSH PRN (10:22)
[2023-08-05] MEDS: ACETAMINOPHEN 325 MG TABLET (FP) PO PRN (10:24)
[2023-08-05 11:31] LABS: BASO % 0.2 % (0-2.0); EOS % 2.7 % (0-4.5); HEMATOCRIT 27.5 % (35.4-49); HEMOGLOBIN 9.2 GM/dL (11.7-16.9); LYMPH % 19.2 % (8-40); MCH 27.6 pg (25.7-33.7); MCHC 33.3 g/dl (32.0-35.9); MEAN CELL VOLUME 83.1 fl (80-96); MONO % 10.5 % (3.8-10.2); NEUT % 67.4 % (42.8-82.8); PLATELET COUNT 286 10^3/uL (134-434); RBC 3.31 M/mm3 (4.00-5.60); RDW 15.4 % (11.9-15.9); WHITE BLOOD COUNT 5.6 K/mm3 (4.0-10.0)
[2023-08-05 11:44] LABS: CALCIUM 8.5 mg/dL (8.5-10.1)
[2023-08-05 11:45] LABS: BLOOD UREA NITROGEN 12.4 mg/dL (7-18); MAGNESIUM 2.2 mg/dL (1.8-2.4)
[2023-08-05 11:48] LABS: PHOSPHOROUS 4.1 mg/dL (2.5-4.9)
[2023-08-05] MEDS: SILVER SULFADIAZINE 1% TOP CREAM 50 GM JAR TP SCH ×2 (14:30→22:20)
[2023-08-05] MEDS: CEFTRIAXONE 1 GM in DEXTROSE 5%-WATER - 50 ML IVPB SCH (14:31)
[2023-08-05] MEDS: COLLAGENASE CLOSTRIDIUM HIST. 30 GRAMS TUBE TP SCH (16:38)
[2023-08-05] MEDS: CLINDAMYCIN 600MG PREMIX IVPB 600 MG/50 ML BAG IVPB SCH (18:23)
[2023-08-05] MEDS: QUEtiapine FUMARATE 200 MG TABLET PO SCH (22:20)
[2023-08-06] MEDS: CLINDAMYCIN 600MG PREMIX IVPB 600 MG/50 ML BAG IVPB SCH ×2 (02:55→09:28)
[2023-08-06] MEDS: methaDONE HCL 40 MG DISPERSABLE TABLET PO SCH (06:26)
[2023-08-06] MEDS: THIAMINE HCL 100 MG TABLET (FP) PO SCH (09:28)
[2023-08-06] MEDS: LACTOBACILLUS ACIDOPHILUS 1 TABLET PO SCH (09:28)
[2023-08-06] MEDS: FOLIC ACID 1 MG TABLET (FP) PO SCH (09:28)
[2023-08-06] MEDS: ENOXAPARIN NA (PORCINE) 40 MG/0.4 ML DISP.SYRIN SQ SCH (09:29)
[2023-08-06 09:51] LABS: BASO % 0.4 % (0-2.0); EOS % 3.4 % (0-4.5); HEMATOCRIT 29.8 % (35.4-49); HEMOGLOBIN 9.7 GM/dL (11.7-16.9); LYMPH % 25.4 % (8-40); MCH 27.3 pg (25.7-33.7); MCHC 32.7 g/dl (32.0-35.9); MEAN CELL VOLUME 83.4 fl (80-96); MEAN PLT VOLUME 7.4 fl (7.5-11.1); NEUT % 65.8 % (42.8-82.8); PLATELET COUNT 325 10^3/uL (134-434); RBC 3.57 M/mm3 (4.00-5.60); RDW 15.7 % (11.9-15.9); WHITE BLOOD COUNT 5.8 K/mm3 (4.0-10.0)
[2023-08-06] MEDS: CEFTRIAXONE 1 GM in DEXTROSE 5%-WATER - 50 ML IVPB SCH (10:08)
[2023-08-06 10:53] LABS: POTASSIUM 4.4 mmol/L (3.5-5.1)
[2023-08-06 10:56] LABS: ALBUMIN 3.1 g/dl (3.4-5.0); BLOOD UREA NITROGEN 13.5 mg/dL (7-18); CALCIUM 8.6 mg/dL (8.5-10.1)
[2023-08-06 10:59] LABS: CREATININE 0.9 mg/dL (0.55-1.3)
[2023-08-06 11:00] LABS: PHOSPHOROUS 4.5 mg/dL (2.5-4.9)
[2023-08-06 11:02] LABS: BILIRUBIN,TOTAL 0.6 mg/dL (0.2-1); TOT PROT 7.8 g/dl (6.4-8.2)
[2023-08-06] MEDS: SILVER SULFADIAZINE 1% TOP CREAM 50 GM JAR TP SCH ×2 (16:20→22:57)
[2023-08-06] MEDS: COLLAGENASE CLOSTRIDIUM HIST. 30 GRAMS TUBE TP SCH (16:20)
[2023-08-06] MEDS: QUEtiapine FUMARATE 200 MG TABLET PO SCH (22:54)
[2023-08-06] MEDS: SULFAMETHOXAZOLE/TRIMETHOPRIM 800MG/160MG D.S. TABLET PO SCH (22:54)
[2023-08-06] MEDS: ACETAMINOPHEN 325 MG TABLET (FP) PO PRN (22:54)
[2023-08-07] MEDS: methaDONE HCL 40 MG DISPERSABLE TABLET PO SCH (06:03)
[2023-08-07 06:39] VITALS: RESP 20
[2023-08-07] MEDS: COLLAGENASE CLOSTRIDIUM HIST. 30 GRAMS TUBE TP SCH (09:19)
[2023-08-07] MEDS: THIAMINE HCL 100 MG TABLET (FP) PO SCH (09:19)
[2023-08-07] MEDS: FOLIC ACID 1 MG TABLET (FP) PO SCH (09:24)
[2023-08-07] MEDS: SULFAMETHOXAZOLE/TRIMETHOPRIM 800MG/160MG D.S. TABLET PO SCH (09:24)
[2023-08-07] MEDS: LACTOBACILLUS ACIDOPHILUS 1 TABLET PO SCH (09:24)
[2023-08-07] MEDS: ENOXAPARIN NA (PORCINE) 40 MG/0.4 ML DISP.SYRIN SQ SCH (09:24)
[2023-08-07 15:10] VITALS: BP 126/67; PULSE 82; TEMP 99.5
== END 2023-08-07 15:50 | disposition other institution (70) | DRG 380 ==
LOC: JER 13:07 → JERBED 19:45 → J5S 08-04 10:19 → J8W 08-05 20:19
PROVIDERS: ADMIT Internal Medicine; ATTEND Nurse Practitioner Family
DX: L97.829 Non-pressure chronic ulcer of other part of left lower leg with unspecified severity (principal); F14.20 Cocaine dependence, uncomplicated; F10.20 Alcohol dependence, uncomplicated; F11.20 Opioid dependence, uncomplicated; L03.116 Cellulitis of left lower limb; F17.210 Nicotine dependence, cigarettes, uncomplicated; F25.9 Schizoaffective disorder, unspecified; D64.9 Anemia, unspecified; I83.029 Varicose veins of left lower extremity with ulcer of unspecified site
CPT/HCPCS: 36415; 80048; 80053; 82728; 83036; 83540; 83550; 83735; 84100; 85025; 85045; 85651; 86140; 87040; 87070; 87081; 87186; 87205; 93005; 93010; 93971-TC; 97116-GP; 97161-GP; 99285-25

== ENCOUNTER 2023-09-22 17:42 | Inpatient (IN) | payer OTHER ==
[2023-09-22 18:17] VITALS: BMI 32.3
[2023-09-22] MEDS ORDERED: NALOXONE HCL (KLOXXADO) 8 MG SPRAY NS PRN (18:51)
[2023-09-22] MEDS ORDERED: NICOTINE POLACRILEX 2 MG GUM BUC PRN (18:51)
[2023-09-22] MEDS ORDERED: LOPERAMIDE HCL 2 MG CAPSULE PO PRN (18:51)
[2023-09-22] MEDS ORDERED: NALOXONE HCL 0.4 MG/ML VIAL IM PRN (18:51)
[2023-09-22] MEDS ORDERED: MAGNESIUM HYDROX 2400MG/30ML ORAL SUSPENSION 30 ML CUP PO PRN (18:51)
[2023-09-22] MEDS ORDERED: MAG HYDROX/AL HYDROX/SIMETH 30 ML UNIT-DOSE CUP PO PRN (18:51)
[2023-09-22] MEDS ORDERED: P-EPHED 60MG/TRIPROLIDI 2.5MG TABLET PO PRN (18:51)
[2023-09-22] MEDS ORDERED: guaiFENesin 600 MG TABLET.ER (FP) PO PRN (18:51)
[2023-09-22] MEDS ORDERED: POLYETHYLENE GLYCOL (HEALTHYLAX) 3350 17 GM PACKET PO PRN (18:51)
[2023-09-22] MEDS ORDERED: BENZOCAINE/MENTHOL (CHLORASEPTIC ) LOZENGE MM PRN (18:51)
[2023-09-22] MEDS ORDERED: BISMUTH SUBSALICYLATE 524 MG/30 ML PO PRN (18:51)
[2023-09-22] MEDS ORDERED: ONDANSETRON *ODT* 4 MG TABLET SL PRN (18:51)
[2023-09-22] MEDS ORDERED: ACETAMINOPHEN 325 MG TABLET (FP) PO PRN (18:51)
[2023-09-22] MEDS ORDERED: BENZONATATE 200 MG CAPSULE PO PRN (18:51)
[2023-09-22] MEDS ORDERED: DICYCLOMINE HCL 10 MG CAPSULE PO PRN (18:51)
[2023-09-22] MEDS ORDERED: IBUPROFEN 400 MG TABLET (FP) PO PRN (18:51)
[2023-09-22] MEDS: levETIRAcetam 500 MG TABLET (FP) PO SCH (22:17)
[2023-09-22] MEDS: COLLAGENASE CLOSTRIDIUM HIST. 30 GRAMS TUBE TP SCH (22:18)
[2023-09-22] MEDS: THIAMINE HCL 100 MG TABLET (FP) PO SCH (22:18)
[2023-09-22] MEDS: MELATONIN 5 MG TABLETS PO SCH (22:18)
[2023-09-22] MEDS: diazePAM 5 MG TABLET PO SCH (22:25)
[2023-09-23] MEDS: diazePAM 5 MG TABLET PO SCH ×4 (05:50→22:21)
[2023-09-23] MEDS: FOLIC ACID 1 MG TABLET (FP) PO SCH (10:16)
[2023-09-23] MEDS: PRENATAL VITAMINS W/ FOLIC ACID TABLET (FP) PO SCH (10:16)
[2023-09-23] MEDS: levETIRAcetam 500 MG TABLET (FP) PO SCH ×2 (10:16→22:21)
[2023-09-23] MEDS: COLLAGENASE CLOSTRIDIUM HIST. 30 GRAMS TUBE TP SCH (10:17)
[2023-09-23] MEDS: LACTOBACILLUS ACIDOPHILUS 1 TABLET PO SCH (10:32)
[2023-09-23] MEDS ORDERED: methaDONE HCL 40 MG DISPERSABLE TABLET PO ONE (10:44)
[2023-09-23] MEDS ORDERED: SILVER SULFADIAZINE 1% TOP CREAM 50 GM JAR TP SCH (10:45)
[2023-09-23] MEDS ORDERED: cloNIDine HCL 0.1 MG TABLET PO PRN (10:47)
[2023-09-23 11:12] LABS: CHLORIDE 106 mmol/L (98-107); POTASSIUM 3.9 mmol/L (3.5-5.1); SODIUM 139 mmol/L (136-145)
[2023-09-23 11:24] LABS: ALBUMIN 3.2 g/dl (3.4-5.0); ANION GAP 4 mmol/L (4-13); BLOOD UREA NITROGEN 19.9 mg/dL (7-18); CALCIUM 8.5 mg/dL (8.5-10.1); CO2 29 mmol/L (21-32); GLUCOSE,RANDOM 115 mg/dL (74-106)
[2023-09-23 11:25] LABS: HEMATOCRIT 30.1 % (35.4-49); HEMOGLOBIN 9.6 GM/dL (11.7-16.9); MCH 26.7 pg (25.7-33.7); MCHC 31.9 g/dl (32.0-35.9); MEAN CELL VOLUME 83.8 fl (80-96); MEAN PLT VOLUME 8.5 fl (7.5-11.1); PLATELET COUNT 245 10^3/uL (134-434); RBC 3.59 M/mm3 (4.00-5.60); RDW 16.2 % (11.9-15.9); WHITE BLOOD COUNT 6.3 K/mm3 (4.0-10.0)
[2023-09-23 11:27] LABS: CREATININE 0.8 mg/dL (0.55-1.3); SGOT/AST 34 U/L (15-37); SGPT/ALT 25 U/L (13-61)
[2023-09-23 11:30] LABS: ALK PHOS 79 U/L (45-117); BILIRUBIN,TOTAL 0.3 mg/dL (0.2-1)
[2023-09-23] MEDS: METHOCARBAMOL 500 MG TABLET PO PRN ×2 (12:04→17:08)
[2023-09-23] MEDS: IBUPROFEN 600 MG TABLET (FP) PO PRN (12:04)
[2023-09-23] MEDS: CLINDAMYCIN HCL 150 MG CAPSULE (FP) PO SCH ×2 (13:23→22:21)
[2023-09-23] MEDS: THIAMINE HCL 100 MG TABLET (FP) PO SCH (22:20)
[2023-09-23] MEDS: MELATONIN 5 MG TABLETS PO SCH (22:20)
[2023-09-23] MEDS: SILVER SULFADIAZINE 1% TOP CREAM 50 GM JAR TP SCH (22:22)
[2023-09-24] MEDS: methaDONE HCL 40 MG DISPERSABLE TABLET PO SCH (05:33)
[2023-09-24] MEDS: diazePAM 5 MG TABLET PO SCH ×3 (05:34→22:37)
[2023-09-24] MEDS: CLINDAMYCIN HCL 150 MG CAPSULE (FP) PO SCH ×3 (05:34→22:32)
[2023-09-24] MEDS: IBUPROFEN 600 MG TABLET (FP) PO PRN (06:28)
[2023-09-24] MEDS: FOLIC ACID 1 MG TABLET (FP) PO SCH (09:35)
[2023-09-24] MEDS: SILVER SULFADIAZINE 1% TOP CREAM 50 GM JAR TP SCH ×2 (09:35→22:34)
[2023-09-24] MEDS: PRENATAL VITAMINS W/ FOLIC ACID TABLET (FP) PO SCH (09:35)
[2023-09-24] MEDS: levETIRAcetam 500 MG TABLET (FP) PO SCH ×2 (09:35→22:32)
[2023-09-24] MEDS: COLLAGENASE CLOSTRIDIUM HIST. 30 GRAMS TUBE TP SCH (09:35)
[2023-09-24] MEDS: METHOCARBAMOL 500 MG TABLET PO PRN ×2 (09:35→22:33)
[2023-09-24] MEDS: LACTOBACILLUS ACIDOPHILUS 1 TABLET PO SCH (09:36)
[2023-09-24] MEDS: diazePAM 5 MG TABLET PO PRN ×2 (09:36→17:02)
[2023-09-24] MEDS ORDERED: QUEtiapine FUMARATE 100 MG TABLET (FP) PO SCH (22:00)
[2023-09-24] MEDS: MELATONIN 5 MG TABLETS PO SCH (22:32)
[2023-09-24] MEDS: THIAMINE HCL 100 MG TABLET (FP) PO SCH (22:32)
[2023-09-25] MEDS: diazePAM 5 MG TABLET PO SCH ×2 (05:32→18:11)
[2023-09-25] MEDS: CLINDAMYCIN HCL 150 MG CAPSULE (FP) PO SCH ×2 (05:32→13:44)
[2023-09-25] MEDS: methaDONE HCL 40 MG DISPERSABLE TABLET PO SCH (05:33)
[2023-09-25] MEDS: SILVER SULFADIAZINE 1% TOP CREAM 50 GM JAR TP SCH (09:21)
[2023-09-25] MEDS: COLLAGENASE CLOSTRIDIUM HIST. 30 GRAMS TUBE TP SCH (09:21)
[2023-09-25] MEDS: PRENATAL VITAMINS W/ FOLIC ACID TABLET (FP) PO SCH (09:21)
[2023-09-25] MEDS: FOLIC ACID 1 MG TABLET (FP) PO SCH (09:21)
[2023-09-25] MEDS: LACTOBACILLUS ACIDOPHILUS 1 TABLET PO SCH (09:21)
[2023-09-25 12:33] LABS: IRON SERUM 42 ug/dL (50-175); TOTAL IRON BINDING CAPACITY 295 ug/dL (250-450)
[2023-09-25 12:46] VITALS: TEMP 97.5
[2023-09-25 18:06] VITALS: BP 119/73; PULSE 91; RESP 18
[2023-09-25] MEDS ORDERED: SULFAMETHOXAZOLE/TRIMETHOPRIM 800MG/160MG D.S. TABLET PO SCH (22:00)
[2023-09-26] MEDS ORDERED: diazePAM 5 MG TABLET PO ONE (06:00)
== END 2023-09-25 16:45 | disposition left against medical advice (07) | DRG 770 ==
LOC: YASAS 17:42 → Y6N 19:52
PROVIDERS: ADMIT Allergy & Immunology; ATTEND Surgery
PROC: HZ2ZZZZ Detoxification Services for Substance Abuse Treatment (ICD-10-PCS; principal; 2023-09-22)
DX: F10.230 Alcohol dependence with withdrawal, uncomplicated (principal); F11.20 Opioid dependence, uncomplicated; F14.20 Cocaine dependence, uncomplicated; F17.210 Nicotine dependence, cigarettes, uncomplicated; F25.9 Schizoaffective disorder, unspecified; F19.282 Other psychoactive substance dependence with psychoactive substance-induced sleep disorder; I73.89 Other specified peripheral vascular diseases; L97.929 Non-pressure chronic ulcer of unspecified part of left lower leg with unspecified severity; M17.0 Bilateral primary osteoarthritis of knee; Z22.322 Carrier or suspected carrier of Methicillin resistant Staphylococcus aureus; Z99.89 Dependence on other enabling machines and devices
CPT/HCPCS: 36415; 80053; 80307; 82607; 82728; 82747; 83540; 83550; 85014; 85027; 86780; 87070; 87186; 87205; 87635

== ENCOUNTER 2023-12-25 19:17 | Inpatient (IN) | payer OTHER ==
[2023-12-25 19:52] VITALS: BMI 23.3
[2023-12-25] MEDS ORDERED: DALBAVANCIN HCL 500 MG VIAL (RESTRICTED TO ID ONLY) IVPB ONE (20:16)
[2023-12-25] MEDS: DALBAVANCIN HCL 1,500 MG in DEXTROSE 5%-WATER - 500 ML IVPB ONE (20:34)
[2023-12-25] MEDS ORDERED: chlordiazePOXIDE HCL 25 MG CAPSULE ONE (20:35)
[2023-12-25 20:38] LABS: BASO % 0.3 % (0-2.0); EOS % 2.9 % (0-4.5); HEMATOCRIT 27.2 % (35.4-49); HEMOGLOBIN 8.6 GM/dL (11.7-16.9); LYMPH % 28.6 % (8-40); MCH 25.7 pg (25.7-33.7); MCHC 31.7 g/dl (32.0-35.9); MEAN CELL VOLUME 81.1 fl (80-96); MEAN PLT VOLUME 7.7 fl (7.5-11.1); MONO % 12.3 % (3.8-10.2); NEUT % 55.9 % (42.8-82.8); PLATELET COUNT 258 10^3/uL (134-434); RBC 3.35 M/mm3 (4.00-5.60); RDW 18.4 % (11.9-15.9); WHITE BLOOD COUNT 6.5 K/mm3 (4.0-10.0)
[2023-12-25 20:59] LABS: POTASSIUM 4.1 mmol/L (3.5-5.1)
[2023-12-25 21:01] LABS: CALCIUM 8.8 mg/dL (8.5-10.1)
[2023-12-25 21:02] LABS: ALBUMIN 2.9 g/dl (3.4-5.0); BLOOD UREA NITROGEN 17.8 mg/dL (7-18)
[2023-12-25 21:05] LABS: CREATININE 0.9 mg/dL (0.55-1.3)
[2023-12-25 21:07] LABS: BILIRUBIN,TOTAL 0.3 mg/dL (0.2-1); TOT PROT 8.6 g/dl (6.4-8.2)
[2023-12-25 21:33] LABS: ERYTHROCYTE SEDIMENTATION RATE 105 mm/hr (0-20)
[2023-12-25] MEDS: chlordiazePOXIDE HCL 25 MG CAPSULE PO ONE (21:43)
[2023-12-26] MEDS ORDERED: chlordiazePOXIDE HCL 25 MG CAPSULE PO PRN (01:39)
[2023-12-26] MEDS ORDERED: chlordiazePOXIDE HCL 25 MG CAPSULE ONE ×4 (03:22→17:24)
[2023-12-26] MEDS: chlordiazePOXIDE HCL 25 MG CAPSULE PO SCH (03:32)
[2023-12-26 06:28] LABS: HEMATOCRIT 24.4 % (35.4-49); MCH 26.7 pg (25.7-33.7); MCHC 32.8 g/dl (32.0-35.9); MEAN CELL VOLUME 81.5 fl (80-96); MEAN PLT VOLUME 7.7 fl (7.5-11.1); PLATELET COUNT 227 10^3/uL (134-434); RDW 18.4 % (11.9-15.9); WHITE BLOOD COUNT 4.8 K/mm3 (4.0-10.0)
[2023-12-26] MEDS: methaDONE HCL 10 MG TABLET PO SCH ×3 (06:47→17:32)
[2023-12-26 06:48] LABS: ALBUMIN 2.7 g/dl (3.4-5.0); CALCIUM 8.6 mg/dL (8.5-10.1)
[2023-12-26 06:51] LABS: BILIRUBIN,TOTAL 0.4 mg/dL (0.2-1); CREATININE 0.9 mg/dL (0.55-1.3); PHOSPHOROUS 4.4 mg/dL (2.5-4.9)
[2023-12-26 06:54] LABS: TOT PROT 7.8 g/dl (6.4-8.2)
[2023-12-26 06:55] LABS: INR 1.24 (0.83-1.09); PROTHROMBIN TIME (PATIENT) 14.3 SEC (9.7-13.0)
[2023-12-26] MEDS: ENOXAPARIN NA (PORCINE) 40 MG/0.4 ML DISP.SYRIN SQ SCH (12:00)
[2023-12-26] MEDS ORDERED: ENOXAPARIN NA (PORCINE) 40 MG/0.4 ML DISP.SYRIN SQ ONE (12:28)
[2023-12-26] MEDS ORDERED: methaDONE HCL 10 MG TABLET ONE ×2 (12:46→17:24)
[2023-12-26] MEDS: ACETAMINOPHEN 1000 MG/100 ML BAG IVPB PRN (20:28)
[2023-12-26] MEDS: QUEtiapine FUMARATE 100 MG TABLET (FP) PO SCH (22:42)
[2023-12-27] MEDS: chlordiazePOXIDE HCL 25 MG CAPSULE PO SCH (05:05)
[2023-12-27 09:43] LABS: BASO % 0.5 % (0-2.0); EOS % 7.7 % (0-4.5); HEMATOCRIT 24.2 % (35.4-49); HEMOGLOBIN 7.7 GM/dL (11.7-16.9); LYMPH % 41.9 % (8-40); MCH 26.2 pg (25.7-33.7); MEAN CELL VOLUME 81.9 fl (80-96); MEAN PLT VOLUME 7.3 fl (7.5-11.1); MONO % 13.4 % (3.8-10.2); NEUT % 36.5 % (42.8-82.8); PLATELET COUNT 220 10^3/uL (134-434); RBC 2.96 M/mm3 (4.00-5.60); RDW 17.9 % (11.9-15.9); WHITE BLOOD COUNT 4.1 K/mm3 (4.0-10.0)
[2023-12-27 10:02] LABS: POTASSIUM 3.5 mmol/L (3.5-5.1)
[2023-12-27 10:24] LABS: CALCIUM 8.9 mg/dL (8.5-10.1)
[2023-12-27 10:26] LABS: ALBUMIN 2.5 g/dl (3.4-5.0); BLOOD UREA NITROGEN 10.7 mg/dL (7-18)
[2023-12-27 10:29] LABS: CREATININE 0.8 mg/dL (0.55-1.3)
[2023-12-27 10:30] LABS: BILIRUBIN,TOTAL 0.4 mg/dL (0.2-1); TOT PROT 7.5 g/dl (6.4-8.2)
[2023-12-27] MEDS ORDERED: methaDONE HCL 40 MG DISPERSABLE TABLET PO SCH (12:00)
[2023-12-27] MEDS: methaDONE HCL 40 MG DISPERSABLE TABLET PO SCH (14:58)
[2023-12-27] MEDS: IRON SUCROSE INJECTION 200 MG in SODIUM CHLORIDE 90 ML IVPB ONE (22:09)
[2023-12-28] MEDS ORDERED: chlordiazePOXIDE HCL 10 MG CAPSULE PO PRN
[2023-12-28] MEDS: chlordiazePOXIDE HCL 10 MG CAPSULE PO SCH (05:45)
[2023-12-28 09:34] LABS: BASO % 0.5 % (0-2.0); EOS % 9.6 % (0-4.5); HEMOGLOBIN 8.1 GM/dL (11.7-16.9); LYMPH % 43.7 % (8-40); MCH 26.5 pg (25.7-33.7); MCHC 32.6 g/dl (32.0-35.9); MEAN CELL VOLUME 81.5 fl (80-96); MEAN PLT VOLUME 7.6 fl (7.5-11.1); MONO % 9.8 % (3.8-10.2); NEUT % 36.4 % (42.8-82.8); PLATELET COUNT 229 10^3/uL (134-434); RBC 3.07 M/mm3 (4.00-5.60)
[2023-12-28 10:10] LABS: POTASSIUM 3.8 mmol/L (3.5-5.1)
[2023-12-28 10:15] LABS: ALBUMIN 2.4 g/dl (3.4-5.0); BLOOD UREA NITROGEN 9.5 mg/dL (7-18); CALCIUM 8.7 mg/dL (8.5-10.1); MAGNESIUM 1.9 mg/dL (1.8-2.4)
[2023-12-28 10:18] LABS: CREATININE 0.8 mg/dL (0.55-1.3)
[2023-12-28 10:20] LABS: BILIRUBIN,TOTAL 0.1 mg/dL (0.2-1); TOT PROT 7.5 g/dl (6.4-8.2)
[2023-12-28] MEDS: IRON SUCROSE INJECTION 200 MG in SODIUM CHLORIDE 90 ML IVPB ONE (11:41)
[2023-12-28] MEDS: methaDONE HCL 40 MG DISPERSABLE TABLET PO ONE (11:41)
[2023-12-28] MEDS: POLYETHYLENE GLYCOL (HEALTHYLAX) 3350 17 GM PACKET PO SCH (11:42)
[2023-12-28] MEDS: PANTOPRAZOLE 40 MG TABLET PO SCH (11:42)
[2023-12-28] MEDS: THIAMINE HCL 100 MG TABLET (FP) PO SCH (17:45)
[2023-12-28] MEDS: FOLIC ACID 1 MG TABLET (FP) PO SCH (17:45)
[2023-12-28] MEDS: methaDONE 80 MG, methaDONE 10 MG PO SCH (21:21)
[2023-12-28] MEDS ORDERED: methaDONE HCL 10 MG TABLET (FOR DETOX USE ONLY) PO SCH (22:00)
[2023-12-29] MEDS: chlordiazePOXIDE HCL 10 MG CAPSULE PO SCH (06:40)
[2023-12-29 09:03] LABS: INR 1.2 (0.83-1.09); PROTHROMBIN TIME (PATIENT) 13.9 SEC (9.7-13.0)
[2023-12-29 09:07] LABS: BASO % 0.5 % (0-2.0); EOS % 4.6 % (0-4.5); HEMATOCRIT 25.7 % (35.4-49); HEMOGLOBIN 8.5 GM/dL (11.7-16.9); LYMPH % 32.5 % (8-40); MCH 26.8 pg (25.7-33.7); MCHC 33.2 g/dl (32.0-35.9); MEAN CELL VOLUME 80.5 fl (80-96); MEAN PLT VOLUME 8.1 fl (7.5-11.1); MONO % 8.4 % (3.8-10.2); PLATELET COUNT 254 10^3/uL (134-434); RBC 3.19 M/mm3 (4.00-5.60); RDW 18.1 % (11.9-15.9); WHITE BLOOD COUNT 5.3 K/mm3 (4.0-10.0)
[2023-12-29 09:50] LABS: POTASSIUM 4.1 mmol/L (3.5-5.1)
[2023-12-29 09:51] LABS: CALCIUM 9.3 mg/dL (8.5-10.1)
[2023-12-29 09:52] LABS: ALBUMIN 2.9 g/dl (3.4-5.0)
[2023-12-29 09:53] LABS: MAGNESIUM 1.9 mg/dL (1.8-2.4)
[2023-12-29 09:55] LABS: BILIRUBIN,TOTAL 0.2 mg/dL (0.2-1)
[2023-12-29 09:57] LABS: BLOOD UREA NITROGEN 11.2 mg/dL (7-18); TOT PROT 8.6 g/dl (6.4-8.2)
[2023-12-29 13:07] VITALS: RESP 18
[2023-12-30] MEDS: chlordiazePOXIDE HCL 10 MG CAPSULE PO ONE (06:22)
[2023-12-30] MEDS: methaDONE HCL 40 MG DISPERSABLE TABLET PO SCH (06:22)
[2023-12-30 07:01] VITALS: TEMP 98.2
[2023-12-30 09:12] LABS: BASO % 0.3 % (0-2.0); EOS % 7.6 % (0-4.5); HEMATOCRIT 26.9 % (35.4-49); HEMOGLOBIN 8.8 GM/dL (11.7-16.9); LYMPH % 34.2 % (8-40); MCH 26.4 pg (25.7-33.7); MCHC 32.7 g/dl (32.0-35.9); MEAN CELL VOLUME 80.8 fl (80-96); MEAN PLT VOLUME 7.8 fl (7.5-11.1); MONO % 9.5 % (3.8-10.2); NEUT % 48.4 % (42.8-82.8); PLATELET COUNT 253 10^3/uL (134-434); RBC 3.33 M/mm3 (4.00-5.60); RDW 18.2 % (11.9-15.9); WHITE BLOOD COUNT 4.4 K/mm3 (4.0-10.0)
[2023-12-30 09:22] LABS: INR 1.19 (0.83-1.09); PROTHROMBIN TIME (PATIENT) 13.8 SEC (9.7-13.0)
[2023-12-30 09:33] LABS: CALCIUM 9.3 mg/dL (8.5-10.1)
[2023-12-30 09:34] LABS: BLOOD UREA NITROGEN 10.9 mg/dL (7-18)
[2023-12-30 09:35] LABS: CREATININE 0.9 mg/dL (0.55-1.3)
[2023-12-30 09:37] LABS: BILIRUBIN,TOTAL 0.2 mg/dL (0.2-1); TOT PROT 8.5 g/dl (6.4-8.2)
[2023-12-30] MEDS ORDERED: methaDONE HCL 10 MG TABLET (FOR DETOX USE ONLY) PO SCH (10:00)
[2023-12-30 13:19] VITALS: BP 115/71; PULSE 82
[2023-12-30] MEDS ORDERED: FERROUS SO4 325 MG TABLET (FP) PO SCH (17:30)
== END 2023-12-30 14:48 | disposition other institution (70) | DRG 383 ==
LOC: JER 19:17 → JERBED 22:28 → INTOOBSV 22:28 → J8W 12-26 19:37 → OBSVTOIN 12-28 11:39
PROVIDERS: ADMIT Internal Medicine; ATTEND Nurse Practitioner Acute Care
PROC: HZ2ZZZZ Detoxification Services for Substance Abuse Treatment (ICD-10-PCS; 2023-12-25)
PROC: 0DB78ZX Excision of Stomach, Pylorus, Via Natural or Artificial Opening Endoscopic, Diagnostic (ICD-10-PCS; 2023-12-29)
PROC: 0DB68ZX Excision of Stomach, Via Natural or Artificial Opening Endoscopic, Diagnostic (ICD-10-PCS; 2023-12-29)
PROC: 0DB98ZX Excision of Duodenum, Via Natural or Artificial Opening Endoscopic, Diagnostic (ICD-10-PCS; principal; 2023-12-29 12:00)
DX: L03.115 Cellulitis of right lower limb (principal); F11.20 Opioid dependence, uncomplicated; D50.9 Iron deficiency anemia, unspecified; F10.10 Alcohol abuse, uncomplicated; F20.9 Schizophrenia, unspecified; L97.828 Non-pressure chronic ulcer of other part of left lower leg with other specified severity; F17.210 Nicotine dependence, cigarettes, uncomplicated; K29.20 Alcoholic gastritis without bleeding
CPT/HCPCS: 0241U-QW; 36415; 73701-TC-RT; 76700-TC; 80053; 82607; 82746; 83540; 83550; 83735; 84100; 85025; 85027; 85610; 85651; 86140; 86704; 86803; 87340; 87517; 88305-TC; 93005; 93010; 93970-TC; 97116-GP; 97161-GP; 99285-25; G0378; J0131; J0875; J1756; Q9967

== ENCOUNTER 2023-12-30 16:18 | Inpatient (IN) | payer OTHER ==
[2023-12-30 17:07] VITALS: BMI 32.3
[2023-12-30] MEDS ORDERED: BENZONATATE 200 MG CAPSULE PO PRN (19:06)
[2023-12-30] MEDS ORDERED: MAGNESIUM HYDROX 2400MG/30ML ORAL SUSPENSION 30 ML CUP PO PRN (19:06)
[2023-12-30] MEDS ORDERED: ACETAMINOPHEN 325 MG TABLET (FP) PO PRN (19:06)
[2023-12-30] MEDS ORDERED: POLYETHYLENE GLYCOL (HEALTHYLAX) 3350 17 GM PACKET PO PRN (19:06)
[2023-12-30] MEDS ORDERED: MAG HYDROX/AL HYDROX/SIMETH 30 ML UNIT-DOSE CUP PO PRN (19:06)
[2023-12-30] MEDS ORDERED: P-EPHED 60MG/TRIPROLIDI 2.5MG TABLET PO PRN (19:06)
[2023-12-30] MEDS ORDERED: guaiFENesin 600 MG TABLET.ER (FP) PO PRN (19:06)
[2023-12-30] MEDS ORDERED: IBUPROFEN 400 MG TABLET (FP) PO PRN (19:06)
[2023-12-30] MEDS ORDERED: DOCUSATE SODIUM 100 MG CAPSULE (FP) PO PRN (19:06)
[2023-12-30] MEDS ORDERED: LOPERAMIDE HCL 2 MG CAPSULE PO PRN (19:06)
[2023-12-30] MEDS ORDERED: BENZOCAINE/MENTHOL (CHLORASEPTIC ) LOZENGE MM PRN (19:06)
[2023-12-30] MEDS: MELATONIN 5 MG TABLETS PO SCH (23:45)
[2023-12-30] MEDS: THIAMINE HCL 100 MG TABLET (FP) PO SCH (23:45)
[2023-12-31] MEDS: IBUPROFEN 600 MG TABLET (FP) PO PRN (02:48)
[2023-12-31 06:44] VITALS: RESP 16; TEMP 97.5
[2023-12-31 09:05] VITALS: PULSE 86
[2023-12-31] MEDS: PRENATAL VITAMINS W/ FOLIC ACID TABLET (FP) PO SCH (10:06)
[2023-12-31] MEDS: PANTOPRAZOLE 40 MG TABLET PO SCH (10:07)
[2023-12-31] MEDS: methaDONE HCL 40 MG DISPERSABLE TABLET PO SCH (10:07)
[2023-12-31] MEDS: FOLIC ACID 1 MG TABLET (FP) PO SCH (10:07)
[2023-12-31 10:08] VITALS: BP 104/65
[2023-12-31] MEDS ORDERED: TUBERCULIN PPD 5 TU/0.1ML VIAL ID ONE (10:15)
[2023-12-31] MEDS: TUBERCULIN PPD 5 TU/0.1ML VIAL ID ONE (10:15)
[2023-12-31] MEDS: BACITRACIN 0.9 GM PACKET TP SCH (11:46)
[2023-12-31] MEDS: VITAMINS A AND D TOPICAL OINTMENT 60 GM TUBE TP SCH (12:15)
== END 2023-12-31 12:45 | disposition left against medical advice (07) | DRG 770 ==
LOC: YASAS 16:18 → Y3E 23:09
PROVIDERS: ADMIT Allergy & Immunology; ATTEND Psychiatry & Neurology Pain Medicine
PROC: HZ42ZZZ Group Counseling for Substance Abuse Treatment, Cognitive-Behavioral (ICD-10-PCS; principal; 2023-12-30)
DX: F11.20 Opioid dependence, uncomplicated (principal); F17.210 Nicotine dependence, cigarettes, uncomplicated; F19.282 Other psychoactive substance dependence with psychoactive substance-induced sleep disorder; D64.9 Anemia, unspecified; L03.119 Cellulitis of unspecified part of limb; I83.009 Varicose veins of unspecified lower extremity with ulcer of unspecified site; L97.919 Non-pressure chronic ulcer of unspecified part of right lower leg with unspecified severity
CPT/HCPCS: 87635

== ENCOUNTER 2024-04-10 10:07 | Inpatient (IN) | payer OTHER ==
[2024-04-10 10:48] VITALS: BMI 30.7
[2024-04-10] MEDS ORDERED: POLYETHYLENE GLYCOL (HEALTHYLAX) 3350 17 GM PACKET PO PRN (16:00)
[2024-04-10] MEDS ORDERED: NALOXONE HCL 0.4 MG/ML VIAL IM PRN (16:00)
[2024-04-10] MEDS ORDERED: LOPERAMIDE HCL 2 MG CAPSULE PO PRN (16:00)
[2024-04-10] MEDS ORDERED: IBUPROFEN 400 MG TABLET (FP) PO PRN (16:00)
[2024-04-10] MEDS ORDERED: BENZOCAINE/MENTHOL (CHLORASEPTIC ) LOZENGE MM PRN (16:00)
[2024-04-10] MEDS ORDERED: DICYCLOMINE HCL 10 MG CAPSULE PO PRN (16:00)
[2024-04-10] MEDS ORDERED: NALOXONE HCL (KLOXXADO) 8 MG SPRAY NS PRN (16:00)
[2024-04-10] MEDS ORDERED: hydrOXYzine PAMOATE 25 MG CAPSULE (FP) PO PRN (16:00)
[2024-04-10] MEDS ORDERED: ACETAMINOPHEN 325 MG TABLET (FP) PO PRN (16:00)
[2024-04-10] MEDS ORDERED: guaiFENesin 600 MG TABLET.ER (FP) PO PRN (16:00)
[2024-04-10] MEDS ORDERED: ONDANSETRON *ODT* 4 MG TABLET SL PRN (16:00)
[2024-04-10] MEDS ORDERED: BISMUTH SUBSALICYLATE 524 MG/30 ML PO PRN (16:00)
[2024-04-10] MEDS ORDERED: MAGNESIUM HYDROX 2400MG/30ML ORAL SUSPENSION 30 ML CUP PO PRN (16:00)
[2024-04-10] MEDS ORDERED: BENZONATATE 200 MG CAPSULE PO PRN (16:00)
[2024-04-10] MEDS ORDERED: MAG HYDROX/AL HYDROX/SIMETH 30 ML UNIT-DOSE CUP PO PRN (16:00)
[2024-04-10] MEDS: diazePAM 5 MG TABLET PO SCH (17:53)
[2024-04-10] MEDS: IBUPROFEN 600 MG TABLET (FP) PO PRN (17:56)
[2024-04-10] MEDS: MELATONIN 5 MG TABLETS PO SCH (22:07)
[2024-04-10] MEDS: THIAMINE 100 MG TABLET PO SCH (22:09)
[2024-04-11] MEDS: methaDONE HCL 40 MG DISPERSABLE TABLET PO SCH (08:58)
[2024-04-11] MEDS: FAMOTIDINE 20 MG TABLET PO SCH (10:03)
[2024-04-11] MEDS: PRENATAL VITAMINS W/ FOLIC ACID TABLET (FP) PO SCH (10:04)
[2024-04-11] MEDS: VITAMINS A AND D TOPICAL OINTMENT TP SCH (10:34)
[2024-04-11 11:47] LABS: HEMOGLOBIN 9.5 GM/dL (11.7-16.9); MCH 26.9 pg (25.7-33.7); MCHC 32.8 g/dl (32.0-35.9); MEAN CELL VOLUME 82.2 fl (80-96); MEAN PLT VOLUME 7.9 fl (7.5-11.1); PLATELET COUNT 244 10^3/uL (134-434); RBC 3.53 M/mm3 (4.00-5.60); RDW 18.3 % (11.9-15.9); WHITE BLOOD COUNT 3.3 K/mm3 (4.0-10.0)
[2024-04-11 11:48] LABS: URINE APPEARANCE CLEAR; URINE BILIRUBIN NEGATIVE (NEGATIVE); URINE COLOR DK YELLOW; URINE GLUCOSE (UA) NEGATIVE (NEGATIVE); URINE KETONE TRACE (NEGATIVE); URINE LEUK ESTERASE NEGATIVE (NEGATIVE); URINE NITRITE NEGATIVE (NEGATIVE); URINE PROTEIN TRACE (NEGATIVE)
[2024-04-11 11:54] LABS: CHLORIDE 107 mmol/L (98-107); POTASSIUM 4.1 mmol/L (3.5-5.1); SODIUM 139 mmol/L (136-145)
[2024-04-11 12:10] LABS: ANION GAP 3 mmol/L (4-13); CALCIUM 8.6 mg/dL (8.5-10.1); CO2 29 mmol/L (21-32); GLUCOSE,RANDOM 102 mg/dL (74-106)
[2024-04-11 12:11] LABS: BLOOD UREA NITROGEN 13.8 mg/dL (7-18)
[2024-04-11 12:13] LABS: SGPT/ALT 15 U/L (13-61)
[2024-04-11 12:14] LABS: CREATININE 0.9 mg/dL (0.55-1.3); SGOT/AST 19 U/L (15-37)
[2024-04-11 12:15] LABS: BILIRUBIN,TOTAL 0.2 mg/dL (0.2-1); TOT PROT 7.5 g/dl (6.4-8.2)
[2024-04-11 12:17] LABS: ALK PHOS 79 U/L (45-117)
[2024-04-11 12:49] LABS: HIV INTERPRETATION NEGATIVE (NEGATIVE)
[2024-04-11] MEDS: diazePAM 5 MG TABLET PO PRN (14:12)
[2024-04-11] MEDS: QUEtiapine FUMARATE 100 MG TABLET (FP) PO SCH (22:14)
[2024-04-12] MEDS: diazePAM 5 MG TABLET PO SCH (05:38)
[2024-04-12] MEDS: METHOCARBAMOL 500 MG TABLET PO PRN (22:41)
[2024-04-13] MEDS: diazePAM 5 MG TABLET PO SCH (05:42)
[2024-04-13] MEDS: FERROUS SO4 325 MG TABLET (FP) PO SCH (09:17)
[2024-04-14] MEDS: diazePAM 5 MG TABLET PO ONE (05:43)
[2024-04-14 08:51] VITALS: BP 119/76; PULSE 90; RESP 17; TEMP 97.9
== END 2024-04-14 10:25 | disposition home or self-care (01) | DRG 773 ==
LOC: YASAS 10:07 → Y6N 16:33
PROVIDERS: ADMIT Allergy & Immunology; ATTEND Surgery
PROC: HZ2ZZZZ Detoxification Services for Substance Abuse Treatment (ICD-10-PCS; principal; 2024-04-10)
DX: F10.230 Alcohol dependence with withdrawal, uncomplicated (principal); F11.20 Opioid dependence, uncomplicated; F17.210 Nicotine dependence, cigarettes, uncomplicated; F25.9 Schizoaffective disorder, unspecified; F19.282 Other psychoactive substance dependence with psychoactive substance-induced sleep disorder; K21.9 Gastro-esophageal reflux disease without esophagitis; I83.028 Varicose veins of left lower extremity with ulcer other part of lower leg; L97.828 Non-pressure chronic ulcer of other part of left lower leg with other specified severity; I73.9 Peripheral vascular disease, unspecified; M17.0 Bilateral primary osteoarthritis of knee; Z99.89 Dependence on other enabling machines and devices
CPT/HCPCS: 36415; 80053; 80305; 80307; 81003; 85027; 86780; 87389; 93005; 93010

== ENCOUNTER 2024-06-07 17:44 | Inpatient (IN) | payer OTHER ==
[2024-06-07 18:22] VITALS: BMI 27.9
[2024-06-07] MEDS ORDERED: hydrOXYzine PAMOATE 25 MG CAPSULE (FP) PO PRN (19:39)
[2024-06-07] MEDS ORDERED: LOPERAMIDE HCL 2 MG CAPSULE PO PRN (19:39)
[2024-06-07] MEDS ORDERED: MAGNESIUM HYDROX 2400MG/30ML ORAL SUSPENSION 30 ML CUP PO PRN (19:39)
[2024-06-07] MEDS ORDERED: DICYCLOMINE HCL 10 MG CAPSULE PO PRN (19:39)
[2024-06-07] MEDS ORDERED: ONDANSETRON *ODT* 4 MG TABLET SL PRN (19:39)
[2024-06-07] MEDS: diazePAM 5 MG TABLET PO SCH (22:39)
[2024-06-07] MEDS: THIAMINE 100 MG TABLET PO SCH (22:39)
[2024-06-07] MEDS: BACITRACIN 0.9 GM PACKET TP SCH (22:39)
[2024-06-08] MEDS: methaDONE HCL 40 MG DISPERSABLE TABLET PO ONE (09:02)
[2024-06-08] MEDS: PRENATAL VITAMINS W/ FOLIC ACID TABLET (FP) PO SCH (09:05)
[2024-06-08] MEDS: NICOTINE 14 MG/24 HOURS TOPICAL PATCH TD SCH (09:05)
[2024-06-08] MEDS: METHOCARBAMOL 500 MG TABLET PO PRN (10:09)
[2024-06-08 11:50] LABS: HEMATOCRIT 29.1 % (35.4-49); HEMOGLOBIN 9.5 GM/dL (11.7-16.9); MCH 26.6 pg (25.7-33.7); MCHC 32.7 g/dl (32.0-35.9); MEAN CELL VOLUME 81.3 fl (80-96); MEAN PLT VOLUME 8.3 fl (7.5-11.1); PLATELET COUNT 289 10^3/uL (134-434); RBC 3.58 M/mm3 (4.00-5.60); RDW 17.6 % (11.9-15.9); WHITE BLOOD COUNT 5.2 K/mm3 (4.0-10.0)
[2024-06-08 11:59] LABS: POTASSIUM 3.9 mmol/L (3.5-5.1)
[2024-06-08 12:04] LABS: BLOOD UREA NITROGEN 13.5 mg/dL (7-18); CALCIUM 8.9 mg/dL (8.5-10.1)
[2024-06-08 12:06] LABS: CREATININE 0.9 mg/dL (0.55-1.3)
[2024-06-08 12:07] LABS: TOT PROT 8.2 g/dl (6.4-8.2)
[2024-06-08 12:08] LABS: BILIRUBIN,TOTAL 0.3 mg/dL (0.2-1)
[2024-06-08] MEDS: FERROUS SO4 325 MG TABLET (FP) PO SCH (17:28)
[2024-06-09] MEDS: diazePAM 5 MG TABLET PO SCH (05:37)
[2024-06-09] MEDS: methaDONE HCL 40 MG DISPERSABLE TABLET PO SCH (05:38)
[2024-06-09] MEDS: diazePAM 5 MG TABLET PO PRN (10:05)
[2024-06-09] MEDS: guaiFENesin 600 MG TABLET.ER (FP) PO PRN (15:57)
[2024-06-09] MEDS: QUEtiapine FUMARATE 100 MG TABLET (FP) PO SCH (22:11)
[2024-06-10] MEDS: diazePAM 5 MG TABLET PO SCH (05:59)
[2024-06-10] MEDS: guaiFENesin 200 MG/10 ML 10 ML UNIT-DOSE CUPS PO PRN (09:08)
[2024-06-11] MEDS: diazePAM 5 MG TABLET PO ONE (05:41)
[2024-06-12] MEDS: IBUPROFEN 400 MG TABLET (FP) PO PRN (17:42)
[2024-06-14 09:29] VITALS: RESP 18
[2024-06-14 13:03] VITALS: BP 114/69; PULSE 83; TEMP 97.7
== END 2024-06-14 14:45 | disposition other institution (70) | DRG 773 ==
LOC: YASAS 17:44 → Y6N 20:25
PROVIDERS: ADMIT Allergy & Immunology; ATTEND Surgery
PROC: HZ2ZZZZ Detoxification Services for Substance Abuse Treatment (ICD-10-PCS; principal; 2024-06-07)
DX: F10.230 Alcohol dependence with withdrawal, uncomplicated (principal); F11.20 Opioid dependence, uncomplicated; F14.20 Cocaine dependence, uncomplicated; F17.213 Nicotine dependence, cigarettes, with withdrawal; F25.9 Schizoaffective disorder, unspecified; F19.282 Other psychoactive substance dependence with psychoactive substance-induced sleep disorder; F19.24 Other psychoactive substance dependence with psychoactive substance-induced mood disorder; D50.9 Iron deficiency anemia, unspecified; I73.9 Peripheral vascular disease, unspecified; L97.829 Non-pressure chronic ulcer of other part of left lower leg with unspecified severity; M17.0 Bilateral primary osteoarthritis of knee; R60.0 Localized edema; Z99.89 Dependence on other enabling machines and devices
CPT/HCPCS: 36415; 80053; 80305; 80307; 85027; 86780; 87811; 93005; 93010

== ENCOUNTER 2024-06-14 14:46 | Inpatient (IN) | payer OTHER ==
[2024-06-14] MEDS ORDERED: NALOXONE HCL 0.4 MG/ML VIAL IM PRN (15:25)
[2024-06-14] MEDS ORDERED: BENZONATATE 200 MG CAPSULE PO PRN (15:25)
[2024-06-14] MEDS ORDERED: hydrOXYzine PAMOATE 25 MG CAPSULE (FP) PO PRN (15:25)
[2024-06-14] MEDS ORDERED: NICOTINE POLACRILEX 2 MG LOZENGE BC PRN (15:25)
[2024-06-14] MEDS ORDERED: MAG HYDROX/AL HYDROX/SIMETH 30 ML UNIT-DOSE CUP PO PRN (15:25)
[2024-06-14] MEDS ORDERED: guaiFENesin 600 MG TABLET.ER (FP) PO PRN (15:25)
[2024-06-14] MEDS ORDERED: NICOTINE 14 MG/24 HOURS TOPICAL PATCH TD PRN (15:25)
[2024-06-14] MEDS ORDERED: POLYETHYLENE GLYCOL (HEALTHYLAX) 3350 17 GM PACKET PO PRN (15:25)
[2024-06-14] MEDS ORDERED: BENZOCAINE/MENTHOL (CHLORASEPTIC ) LOZENGE MM PRN (15:25)
[2024-06-14] MEDS ORDERED: MAGNESIUM HYDROX 2400MG/30ML ORAL SUSPENSION 30 ML CUP PO PRN (15:25)
[2024-06-14] MEDS ORDERED: LOPERAMIDE HCL 2 MG CAPSULE PO PRN (15:25)
[2024-06-14] MEDS ORDERED: NICOTINE POLACRILEX 2 MG GUM BUC PRN (15:25)
[2024-06-14] MEDS ORDERED: NALOXONE (NARCAN) HCL 4 MG/0.1 ML SPRAY NS PRN (15:25)
[2024-06-14] MEDS ORDERED: IBUPROFEN 400 MG TABLET (FP) PO PRN (15:25)
[2024-06-14] MEDS: FERROUS SO4 325 MG TABLET (FP) PO SCH (17:28)
[2024-06-14] MEDS: ACAMPROSATE CALCIUM 333 MG TABLET.DR PO SCH (22:17)
[2024-06-14] MEDS: QUEtiapine FUMARATE 100 MG TABLET (FP) PO SCH (22:17)
[2024-06-14] MEDS: THIAMINE 100 MG TABLET PO SCH (22:17)
[2024-06-14] MEDS: MELATONIN 5 MG TABLETS PO SCH (22:17)
[2024-06-15] MEDS: methaDONE HCL 40 MG DISPERSABLE TABLET PO SCH (05:34)
[2024-06-15] MEDS: PRENATAL VITAMINS W/ FOLIC ACID TABLET (FP) PO SCH (10:20)
[2024-06-15] MEDS: IBUPROFEN 600 MG TABLET (FP) PO PRN (10:21)
[2024-06-15] MEDS: ACETAMINOPHEN 325 MG TABLET (FP) PO PRN (21:27)
[2024-06-16] MEDS: MUPIROCIN 2% TOPICAL OINTMENT 22 GM TUBE TP SCH (13:03)
[2024-06-16] MEDS ORDERED: IBUPROFEN 400 MG TABLET (FP) PO PRN (15:26)
[2024-06-17 14:47] LABS: MAGNESIUM 2.2 mg/dL (1.8-2.4)
[2024-06-27] MEDS: ACETAMINOPHEN 325 MG TABLET (FP) PO PRN (07:32)
[2024-06-28 07:01] VITALS: RESP 16; TEMP 97.4
[2024-06-28 09:30] VITALS: BP 125/72; PULSE 82
== END 2024-06-28 10:53 | disposition home or self-care (01) | DRG 772 ==
LOC: YASAS 14:46 → Y3NR 14:48 → Y5N 06-15 12:53
PROVIDERS: ADMIT Allergy & Immunology; ATTEND Psychiatry & Neurology Pain Medicine
PROC: HZ42ZZZ Group Counseling for Substance Abuse Treatment, Cognitive-Behavioral (ICD-10-PCS; principal; 2024-06-14)
DX: F10.20 Alcohol dependence, uncomplicated (principal); F11.20 Opioid dependence, uncomplicated; F14.20 Cocaine dependence, uncomplicated; F17.213 Nicotine dependence, cigarettes, with withdrawal; F19.94 Other psychoactive substance use, unspecified with psychoactive substance-induced mood disorder; F25.9 Schizoaffective disorder, unspecified; M17.0 Bilateral primary osteoarthritis of knee; D50.9 Iron deficiency anemia, unspecified; R26.2 Difficulty in walking, not elsewhere classified; Z99.89 Dependence on other enabling machines and devices
CPT/HCPCS: 36415; 80061; 82652; 83036; 83735

== ENCOUNTER 2024-08-14 11:06 | Inpatient (IN) | payer OTHER ==
[2024-08-14 11:45] VITALS: BMI 29.8
[2024-08-14] MEDS ORDERED: BENZOCAINE/MENTHOL (CHLORASEPTIC ) LOZENGE MM PRN (16:56)
[2024-08-14] MEDS ORDERED: BISMUTH SUBSALICYLATE 524 MG/30 ML PO PRN (16:56)
[2024-08-14] MEDS ORDERED: ONDANSETRON *ODT* 4 MG TABLET SL PRN (16:56)
[2024-08-14] MEDS ORDERED: POLYETHYLENE GLYCOL (HEALTHYLAX) 3350 17 GM PACKET PO PRN (16:56)
[2024-08-14] MEDS ORDERED: MAGNESIUM HYDROX 2400MG/30ML ORAL SUSPENSION 30 ML CUP PO PRN (16:56)
[2024-08-14] MEDS ORDERED: DICYCLOMINE HCL 10 MG CAPSULE PO PRN (16:56)
[2024-08-14] MEDS ORDERED: BENZONATATE 200 MG CAPSULE PO PRN (16:56)
[2024-08-14] MEDS ORDERED: guaiFENesin 600 MG TABLET.ER (FP) PO PRN (16:56)
[2024-08-14] MEDS ORDERED: NALOXONE (NARCAN) HCL 4 MG/0.1 ML SPRAY NS PRN (16:56)
[2024-08-14] MEDS ORDERED: hydrOXYzine PAMOATE 25 MG CAPSULE (FP) PO PRN (16:56)
[2024-08-14] MEDS ORDERED: LOPERAMIDE HCL 2 MG CAPSULE PO PRN (16:56)
[2024-08-14] MEDS ORDERED: MAG HYDROX/AL HYDROX/SIMETH 30 ML UNIT-DOSE CUP PO PRN (16:56)
[2024-08-14] MEDS ORDERED: IBUPROFEN 400 MG TABLET (FP) PO PRN (16:56)
[2024-08-14] MEDS ORDERED: NALOXONE HCL 0.4 MG/ML VIAL IM PRN (16:56)
[2024-08-14] MEDS: THIAMINE 100 MG TABLET PO SCH (22:22)
[2024-08-14] MEDS: MELATONIN 5 MG TABLETS PO SCH (22:23)
[2024-08-15] MEDS: FERROUS SO4 325 MG TABLET (FP) PO SCH (08:01)
[2024-08-15] MEDS: methaDONE HCL 40 MG DISPERSABLE TABLET PO ONE (10:26)
[2024-08-15] MEDS: PRENATAL VITAMINS W/ FOLIC ACID TABLET (FP) PO SCH (10:26)
[2024-08-15] MEDS: diazePAM 5 MG TABLET PO SCH (10:26)
[2024-08-15] MEDS: SILVER SULFADIAZINE 1% TOP CREAM 50 GM JAR TP SCH (10:28)
[2024-08-15 11:26] LABS: HEMATOCRIT 31.3 % (35.4-49); HEMOGLOBIN 9.9 GM/dL (11.7-16.9); MCH 26.4 pg (25.7-33.7); MCHC 31.7 g/dl (32.0-35.9); MEAN CELL VOLUME 83.2 fl (80-96); MEAN PLT VOLUME 8.1 fl (7.5-11.1); PLATELET COUNT 259 10^3/uL (134-434); RBC 3.76 M/mm3 (4.00-5.60); RDW 17.6 % (11.9-15.9); WHITE BLOOD COUNT 4.6 K/mm3 (4.0-10.0)
[2024-08-15] MEDS ORDERED: AMMONIUM LACTATE 12% LOTION 225 GM BOTTLE TP PRN (12:49)
[2024-08-15 13:32] LABS: CHLORIDE 105 mmol/L (98-107); POTASSIUM 4.2 mmol/L (3.5-5.1); SODIUM 140 mmol/L (136-145)
[2024-08-15 13:37] LABS: ALBUMIN 3.1 g/dl (3.4-5.0); ANION GAP 8 mmol/L (4-13); BLOOD UREA NITROGEN 11.8 mg/dL (7-18); CO2 26 mmol/L (21-32); GLUCOSE,RANDOM 96 mg/dL (74-106)
[2024-08-15 13:39] LABS: SGOT/AST 27 U/L (15-37)
[2024-08-15 13:40] LABS: BILIRUBIN,TOTAL 0.2 mg/dL (0.2-1); CREATININE 0.9 mg/dL (0.55-1.3)
[2024-08-15 13:42] LABS: ALK PHOS 77 U/L (45-117); TOT PROT 7.9 g/dl (6.4-8.2)
[2024-08-15 13:54] LABS: SGPT/ALT 20 U/L (13-61)
[2024-08-15] MEDS: diazePAM 5 MG TABLET PO PRN (14:05)
[2024-08-15] MEDS: QUEtiapine FUMARATE 100 MG TABLET (FP) PO SCH (22:10)
[2024-08-15] MEDS: IBUPROFEN 600 MG TABLET (FP) PO PRN (22:11)
[2024-08-16] MEDS: methaDONE HCL 40 MG DISPERSABLE TABLET PO SCH (05:44)
[2024-08-16] MEDS: METHOCARBAMOL 500 MG TABLET PO PRN (10:29)
[2024-08-17] MEDS: diazePAM 5 MG TABLET PO SCH (06:05)
[2024-08-17] MEDS: ACETAMINOPHEN 325 MG TABLET (FP) PO PRN (06:08)
[2024-08-18] MEDS: diazePAM 5 MG TABLET PO SCH (05:39)
[2024-08-19] MEDS: diazePAM 5 MG TABLET PO ONE (05:41)
[2024-08-19 07:38] VITALS: RESP 16
[2024-08-19 08:44] VITALS: BP 110/75; PULSE 84; TEMP 97.7
== END 2024-08-19 10:02 | disposition home or self-care (01) | DRG 773 ==
LOC: YASAS 11:06 → Y6N 17:43
PROVIDERS: ADMIT Allergy & Immunology; ATTEND Surgery
PROC: HZ2ZZZZ Detoxification Services for Substance Abuse Treatment (ICD-10-PCS; principal; 2024-08-14)
DX: F11.23 Opioid dependence with withdrawal (principal); F10.230 Alcohol dependence with withdrawal, uncomplicated; F14.20 Cocaine dependence, uncomplicated; F17.210 Nicotine dependence, cigarettes, uncomplicated; F19.282 Other psychoactive substance dependence with psychoactive substance-induced sleep disorder; F19.280 Other psychoactive substance dependence with psychoactive substance-induced anxiety disorder; I73.9 Peripheral vascular disease, unspecified; L97.929 Non-pressure chronic ulcer of unspecified part of left lower leg with unspecified severity; M17.0 Bilateral primary osteoarthritis of knee; Z99.89 Dependence on other enabling machines and devices
CPT/HCPCS: 36415; 80053; 80305; 80307; 85027; 86780

== ENCOUNTER 2024-10-21 14:48 | Inpatient (IN) | payer OTHER ==
[2024-10-21] MEDS ORDERED: DICYCLOMINE HCL 10 MG CAPSULE PO PRN (15:23)
[2024-10-21] MEDS ORDERED: BISMUTH SUBSALICYLATE 262 MG/15 ML BTL PO PRN (15:23)
[2024-10-21] MEDS ORDERED: POLYETHYLENE GLYCOL (HEALTHYLAX) 3350 17 GM PACKET PO PRN (15:23)
[2024-10-21] MEDS ORDERED: BENZONATATE 200 MG CAPSULE PO PRN (15:23)
[2024-10-21] MEDS ORDERED: MAG HYDROX/AL HYDROX/SIMETH 30 ML UNIT-DOSE CUP PO PRN (15:23)
[2024-10-21] MEDS ORDERED: NALOXONE (NARCAN) HCL 4 MG/0.1 ML SPRAY NS PRN (15:23)
[2024-10-21] MEDS ORDERED: LOPERAMIDE HCL 2 MG CAPSULE PO PRN (15:23)
[2024-10-21] MEDS ORDERED: IBUPROFEN 400 MG TABLET (FP) PO PRN (15:23)
[2024-10-21] MEDS ORDERED: ONDANSETRON *ODT* 4 MG TABLET SL PRN (15:23)
[2024-10-21 15:26] VITALS: BMI 29.0
[2024-10-21] MEDS: NICOTINE 14 MG/24 HOURS TOPICAL PATCH TD SCH (15:38)
[2024-10-21] MEDS: PRENATAL VITAMINS W/ FOLIC ACID TABLET (FP) PO SCH (15:38)
[2024-10-21] MEDS ORDERED: NICOTINE 14 MG/24 HOURS TOPICAL PATCH TD ONE (16:39)
[2024-10-21] MEDS ORDERED: PRENATAL VITAMINS W/ FOLIC ACID TABLET (FP) PO ONE (16:39)
[2024-10-21] MEDS ORDERED: diazePAM 5 MG TABLET ONE (16:58)
[2024-10-21] MEDS ORDERED: hydrOXYzine PAMOATE 25 MG CAPSULE (FP) PO ONE (16:58)
[2024-10-21] MEDS: hydrOXYzine PAMOATE 25 MG CAPSULE (FP) PO PRN (16:58)
[2024-10-21] MEDS: diazePAM 5 MG TABLET PO SCH (16:59)
[2024-10-21] MEDS: VITAMINS A AND D TOPICAL OINTMENT TP SCH (17:03)
[2024-10-21] MEDS: ACAMPROSATE CALCIUM 333 MG TABLET.DR PO SCH (19:39)
[2024-10-21] MEDS: diazePAM 5 MG TABLET PO PRN (20:01)
[2024-10-21] MEDS: ACETAMINOPHEN 325 MG TABLET (FP) PO PRN (20:03)
[2024-10-21] MEDS: IBUPROFEN 600 MG TABLET (FP) PO PRN (22:44)
[2024-10-21] MEDS: MELATONIN 5 MG TABLETS PO SCH (22:44)
[2024-10-21] MEDS: METHOCARBAMOL 500 MG TABLET PO PRN (22:44)
[2024-10-21] MEDS: THIAMINE 100 MG TABLET PO SCH (22:45)
[2024-10-21] MEDS: BACITRACIN/POLYMYXIN B SULFATE 15 GM TUBE TP SCH (22:47)
[2024-10-22] MEDS ORDERED: methaDONE HCL 10 MG TABLET PO SCH (08:45)
[2024-10-22 12:28] LABS: HEMOGLOBIN 9.3 GM/dL (11.7-16.9); MCH 26.2 pg (25.7-33.7); MCHC 31.2 g/dl (32.0-35.9); MEAN CELL VOLUME 84.1 fl (80-96); MEAN PLT VOLUME 7.8 fl (7.5-11.1); PLATELET COUNT 248 10^3/uL (134-434); RBC 3.56 M/mm3 (4.00-5.60); RDW 17.2 % (11.9-15.9); WHITE BLOOD COUNT 5.3 K/mm3 (4.0-10.0)
[2024-10-22 12:32] LABS: CHLORIDE 104 mmol/L (98-107); POTASSIUM 3.9 mmol/L (3.5-5.1); SODIUM 139 mmol/L (136-145)
[2024-10-22 12:45] LABS: CALCIUM 8.9 mg/dL (8.5-10.1)
[2024-10-22 12:46] LABS: ALBUMIN 3.3 g/dl (3.4-5.0); ANION GAP 8 mmol/L (4-13); BLOOD UREA NITROGEN 23.1 mg/dL (7-18); CO2 27 mmol/L (21-32); GLUCOSE,RANDOM 76 mg/dL (74-106)
[2024-10-22 12:49] LABS: SGOT/AST 25 U/L (15-37); SGPT/ALT 18 U/L (13-61)
[2024-10-22 12:51] LABS: BILIRUBIN,TOTAL 0.3 mg/dL (0.2-1); TOT PROT 8.1 g/dl (6.4-8.2)
[2024-10-22 12:52] LABS: ALK PHOS 85 U/L (45-117)
[2024-10-22] MEDS: QUEtiapine FUMARATE 100 MG TABLET (FP) PO SCH (22:14)
[2024-10-23] MEDS: diazePAM 5 MG TABLET PO SCH (05:39)
[2024-10-23] MEDS: guaiFENesin 600 MG TABLET.ER (FP) PO PRN (06:51)
[2024-10-24] MEDS: diazePAM 5 MG TABLET PO SCH (06:32)
[2024-10-24] MEDS: MAGNESIUM HYDROX 2400MG/30ML ORAL SUSPENSION 30 ML CUP PO PRN (10:08)
[2024-10-24] MEDS: FERROUS SO4 325 MG TABLET (FP) PO SCH (11:12)
[2024-10-25] MEDS: diazePAM 5 MG TABLET PO ONE (05:44)
[2024-10-25] MEDS: NALOXONE (NYS OPIOID OVERDOSE PROGRAM) 4 MG/0.1 ML SPRAY NS SCH (09:18)
[2024-10-25] MEDS: BENZOCAINE/MENTHOL (CHLORASEPTIC ) LOZENGE MM PRN (12:08)
[2024-10-26 09:11] VITALS: BP 149/81; PULSE 108; RESP 18; TEMP 98.7
== END 2024-10-26 11:12 | disposition other institution (70) | DRG 773 ==
LOC: YASAS 14:48 → Y3N 15:59
PROVIDERS: ADMIT Allergy & Immunology; ATTEND Surgery
PROC: HZ2ZZZZ Detoxification Services for Substance Abuse Treatment (ICD-10-PCS; principal; 2024-10-21)
DX: F10.230 Alcohol dependence with withdrawal, uncomplicated (principal); F11.20 Opioid dependence, uncomplicated; F14.20 Cocaine dependence, uncomplicated; F17.210 Nicotine dependence, cigarettes, uncomplicated; F19.282 Other psychoactive substance dependence with psychoactive substance-induced sleep disorder; F25.9 Schizoaffective disorder, unspecified; D50.9 Iron deficiency anemia, unspecified; L97.929 Non-pressure chronic ulcer of unspecified part of left lower leg with unspecified severity; M17.0 Bilateral primary osteoarthritis of knee; R26.89 Other abnormalities of gait and mobility
CPT/HCPCS: 36415; 80053; 80305; 80307; 85027; 86780; 87811; 93005; 93010

== ENCOUNTER 2024-10-26 11:19 | Inpatient (IN) | payer OTHER ==
[2024-10-26] MEDS ORDERED: BENZOCAINE/MENTHOL (CHLORASEPTIC ) LOZENGE MM PRN (12:31)
[2024-10-26] MEDS ORDERED: BENZONATATE 200 MG CAPSULE PO PRN (12:31)
[2024-10-26] MEDS ORDERED: IBUPROFEN 400 MG TABLET (FP) PO PRN (12:31)
[2024-10-26] MEDS ORDERED: MAGNESIUM HYDROX 2400MG/30ML ORAL SUSPENSION 30 ML CUP PO PRN (12:31)
[2024-10-26] MEDS ORDERED: guaiFENesin 600 MG TABLET.ER (FP) PO PRN (12:31)
[2024-10-26] MEDS ORDERED: POLYETHYLENE GLYCOL (HEALTHYLAX) 3350 17 GM PACKET PO PRN (12:31)
[2024-10-26] MEDS ORDERED: LOPERAMIDE HCL 2 MG CAPSULE PO PRN (12:31)
[2024-10-26] MEDS ORDERED: MAG HYDROX/AL HYDROX/SIMETH 30 ML UNIT-DOSE CUP PO PRN (12:31)
[2024-10-26] MEDS ORDERED: NALOXONE HCL 0.4 MG/ML VIAL IVPUSH PRN (12:31)
[2024-10-26] MEDS ORDERED: NALOXONE (NARCAN) HCL 4 MG/0.1 ML SPRAY NS PRN (12:31)
[2024-10-26] MEDS: ACAMPROSATE CALCIUM 333 MG TABLET.DR PO SCH (13:51)
[2024-10-26] MEDS: FERROUS SO4 325 MG TABLET (FP) PO SCH (17:04)
[2024-10-26] MEDS: SILVER SULFADIAZINE 1% TOP CREAM 400 GM JAR TP SCH (17:24)
[2024-10-26] MEDS: MELATONIN 5 MG TABLETS PO SCH (21:03)
[2024-10-26] MEDS: THIAMINE 100 MG TABLET PO SCH (21:03)
[2024-10-26] MEDS: QUEtiapine FUMARATE 100 MG TABLET (FP) PO SCH (21:04)
[2024-10-27] MEDS ORDERED: methaDONE HCL 40 MG DISPERSABLE TABLET PO SCH ×2 (10:00→12:06)
[2024-10-27] MEDS: PRENATAL VITAMINS W/ FOLIC ACID TABLET (FP) PO SCH (10:54)
[2024-10-27] MEDS: DOXYCYCLINE HYCLATE 100 MG TABLET PO SCH (17:30)
[2024-10-28] MEDS: ACETAMINOPHEN 325 MG TABLET (FP) PO PRN (06:30)
[2024-10-30] MEDS: METHOCARBAMOL 500 MG TABLET PO PRN (09:52)
[2024-10-31] MEDS: IBUPROFEN 600 MG TABLET (FP) PO PRN (10:34)
[2024-11-03] MEDS: METHOCARBAMOL 500 MG TABLET PO PRN (10:11)
[2024-11-06] MEDS: hydrOXYzine PAMOATE 25 MG CAPSULE (FP) PO PRN (10:13)
[2024-11-08] MEDS ORDERED: METHYL SALICYLATE/MENTHOL 30 GM TUBE TP PRN (16:10)
[2024-11-14 06:50] VITALS: BP 110/71; PULSE 88; RESP 20; TEMP 97.7
[2024-11-14] MEDS: NALOXONE (NYS OPIOID OVERDOSE PROGRAM) 4 MG/0.1 ML SPRAY NS SCH (09:14)
== END 2024-11-14 09:22 | disposition home or self-care (01) | DRG 772 ==
LOC: YASAS 11:19 → Y3E 11:21
PROVIDERS: ADMIT Psychiatry & Neurology Pain Medicine; ATTEND Psychiatry & Neurology Pain Medicine
PROC: HZ42ZZZ Group Counseling for Substance Abuse Treatment, Cognitive-Behavioral (ICD-10-PCS; principal; 2024-10-26)
DX: F10.20 Alcohol dependence, uncomplicated (principal); F14.20 Cocaine dependence, uncomplicated; F17.210 Nicotine dependence, cigarettes, uncomplicated; F25.9 Schizoaffective disorder, unspecified; D64.9 Anemia, unspecified; L97.929 Non-pressure chronic ulcer of unspecified part of left lower leg with unspecified severity; M17.0 Bilateral primary osteoarthritis of knee; Z22.322 Carrier or suspected carrier of Methicillin resistant Staphylococcus aureus; Z86.69 Personal history of other diseases of the nervous system and sense organs

== ENCOUNTER 2025-02-10 15:29 | Inpatient (IN) | payer OTHER ==
[2025-02-10 16:42] VITALS: BMI 33.2
[2025-02-10] MEDS ORDERED: BENZOCAINE/MENTHOL (CHLORASEPTIC ) LOZENGE MM PRN (17:55)
[2025-02-10] MEDS ORDERED: MAGNESIUM HYDROX 2400MG/30ML ORAL SUSPENSION 30 ML CUP PO PRN (17:55)
[2025-02-10] MEDS ORDERED: NICOTINE POLACRILEX 2 MG LOZENGE BC PRN (17:55)
[2025-02-10] MEDS ORDERED: LOPERAMIDE HCL 2 MG CAPSULE PO PRN (17:55)
[2025-02-10] MEDS ORDERED: BISMUTH SUBSALICYLATE 524 MG/30 ML PO PRN (17:55)
[2025-02-10] MEDS ORDERED: NALOXONE (NARCAN) HCL 4 MG/0.1 ML SPRAY NS PRN (17:55)
[2025-02-10] MEDS ORDERED: DICYCLOMINE HCL 10 MG CAPSULE PO PRN (17:55)
[2025-02-10] MEDS ORDERED: BENZONATATE 200 MG CAPSULE PO PRN (17:55)
[2025-02-10] MEDS ORDERED: guaiFENesin 600 MG TABLET.ER (FP) PO PRN (17:55)
[2025-02-10] MEDS ORDERED: IBUPROFEN 400 MG TABLET (FP) PO PRN (17:55)
[2025-02-10] MEDS ORDERED: P-EPHED 60MG/TRIPROLIDI 2.5MG TABLET PO PRN (17:55)
[2025-02-10] MEDS ORDERED: POLYETHYLENE GLYCOL (HEALTHYLAX) 3350 17 GM PACKET PO PRN (17:55)
[2025-02-10] MEDS ORDERED: NICOTINE POLACRILEX 2 MG GUM BUC PRN (17:55)
[2025-02-10] MEDS ORDERED: ONDANSETRON *ODT* 4 MG TABLET SL PRN (17:55)
[2025-02-10] MEDS ORDERED: MAG HYDROX/AL HYDROX/SIMETH 30 ML UNIT-DOSE CUP PO PRN (17:55)
[2025-02-10] MEDS: METHOCARBAMOL 500 MG TABLET PO PRN (18:44)
[2025-02-10] MEDS ORDERED: METHOCARBAMOL 500 MG TABLET ONE (19:42)
[2025-02-10] MEDS: THIAMINE 100 MG TABLET PO SCH (21:53)
[2025-02-10] MEDS: MELATONIN 5 MG TABLETS PO SCH (21:53)
[2025-02-10] MEDS: ACETAMINOPHEN 325 MG TABLET (FP) PO PRN (21:54)
[2025-02-11] MEDS: BACITRACIN 0.9 GM PACKET TP SCH (00:21)
[2025-02-11 09:31] LABS: HEMATOCRIT 32.2 % (40.1-51.0); HEMOGLOBIN 9.7 g/dL (13.7-17.5); MCHC 30.1 g/dl (32.3-36.5); MEAN PLT VOLUME 9.8 fl (9.4-12.4); PLATELET COUNT # 262 x10^3/uL (163-337); RDW 16.2 % (12.2-16.1)
[2025-02-11 09:32] LABS: POTASSIUM 4.2 mmol/L (3.5-5.1)
[2025-02-11] MEDS: PRENATAL VITAMINS W/ FOLIC ACID TABLET (FP) PO SCH (10:11)
[2025-02-11] MEDS: FERROUS SO4 325 MG TABLET (FP) PO SCH (10:11)
[2025-02-11 10:16] LABS: ALBUMIN 3.3 g/dl (3.4-5.0); BLOOD UREA NITROGEN 28.2 mg/dL (7-18); CALCIUM 8.5 mg/dL (8.5-10.1)
[2025-02-11 10:17] LABS: CREATININE 1.2 mg/dL (0.55-1.3)
[2025-02-11 10:19] LABS: BILIRUBIN,TOTAL 0.2 mg/dL (0.2-1); TOT PROT 7.6 g/dl (6.4-8.2)
[2025-02-11] MEDS: methaDONE HCL 10 MG TABLET PO SCH (11:33)
[2025-02-11] MEDS: diazePAM 5 MG TABLET PO PRN (14:51)
[2025-02-11] MEDS: diazePAM 5 MG TABLET PO SCH (17:42)
[2025-02-11] MEDS: QUEtiapine FUMARATE 100 MG TABLET (FP) PO SCH (22:35)
[2025-02-11] MEDS: MIRTAZAPINE 30 MG TABLET PO SCH (22:35)
[2025-02-12] MEDS: diazePAM 5 MG TABLET PO SCH (06:09)
[2025-02-12] MEDS: ACAMPROSATE CALCIUM 333 MG TABLET.DR PO SCH (21:10)
[2025-02-12] MEDS: IBUPROFEN 600 MG TABLET (FP) PO PRN (21:11)
[2025-02-13] MEDS: diazePAM 5 MG TABLET PO SCH (05:30)
[2025-02-14] MEDS: diazePAM 5 MG TABLET PO ONE (05:50)
[2025-02-14 06:55] VITALS: TEMP 97.7
[2025-02-14 10:14] VITALS: BP 118/68; PULSE 89; RESP 18
== END 2025-02-14 09:36 | disposition home or self-care (01) | DRG 773 ==
LOC: YASAS 15:29 → Y6N 18:52
PROVIDERS: ADMIT Allergy & Immunology; ATTEND Allergy & Immunology
PROC: HZ2ZZZZ Detoxification Services for Substance Abuse Treatment (ICD-10-PCS; principal; 2025-02-10)
DX: F10.230 Alcohol dependence with withdrawal, uncomplicated (principal); F11.20 Opioid dependence, uncomplicated; F13.20 Sedative, hypnotic or anxiolytic dependence, uncomplicated; F14.20 Cocaine dependence, uncomplicated; F17.210 Nicotine dependence, cigarettes, uncomplicated; F19.282 Other psychoactive substance dependence with psychoactive substance-induced sleep disorder; F19.280 Other psychoactive substance dependence with psychoactive substance-induced anxiety disorder; F19.24 Other psychoactive substance dependence with psychoactive substance-induced mood disorder; D50.9 Iron deficiency anemia, unspecified; M17.0 Bilateral primary osteoarthritis of knee; L97.929 Non-pressure chronic ulcer of unspecified part of left lower leg with unspecified severity; R79.89 Other specified abnormal findings of blood chemistry; Z99.89 Dependence on other enabling machines and devices
CPT/HCPCS: 36415; 80053; 80305; 80307; 84520; 85027; 86780; 93005; 93010